=== PATIENT | male | born 2000 | race Caucasian/White ===

== ENCOUNTER 2022-05-19 16:47 | Emergency (ER) | payer OTHER, SELFPAY ==
[2022-05-19 16:56] VITALS: BP 136/72; PULSE 72; RESP 18; TEMP 36.9; O2SAT 99; BMI 22.2
[2022-05-19 19:21] VITALS: BP 126/85; PULSE 60; RESP 16; O2SAT 100
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
--- OUTSIDE RECORDS SUMMARY | 2022-05-19 19:42 | XMS_ITS | Encounter Summary ---
:2000 Author Organization [facility] Address [address] [place] [address] Care Team Providers Name Role Phone Harjeet Holly M.D. Primary Care Provider Reason for Referral Outpatient (Routine) - Closed Specialty Diagnoses / Procedures Referred By Contact Refer red To Contact Diagnoses Fracture Fifth Metacarpal Neck Displaced Closed Initial Right Juan Luis Loo APRN, [facility] Region Procedures FL Fluoro Less Than 1 Hour M.S.N., R.N. [address] [place] [phone] Referral ID Status Reason Start Date Expiration Date Visits Requ ested Visits Authorized [id number] Closed 07/01/2021 07/01/2022 1 1 H MOVING TECHNICIAN Reason for Visit Outpatient (Routine) - Closed Specialty Diagnoses / Procedures Referred By Contact Refer red To Contact Diagnoses Fracture Fifth Metacarpal Neck Displaced Closed Initial Right Juan Luis Loo APRN, [facility] Region Procedures FL Fluoro Less Than 1 Hour M.S.N., R.N. [address] [place] [phone] Referral ID Status Reason Start Date Expiration Date Visits Requ ested Visits Authorized [id number] Closed 07/01/2021 07/01/2022 1 1 Encounter Details Date Type Department Care Team Description 07/01/2021 Hospital Encounter Department of Juan Luis Loo Fract ure [facility] OLIVE, M.S.N., [facility], in R.N. Displaced Closed [place], [place] [address] [facility] Initial Right [address] [place], [place] [phone] Social History Tobacco Use Types Packs/Day Years Used Date Smoking Tobacco: Never Smokeless Tobacco: Never Sex Assigned at Date Recorded Not on file documented as of this encounter Plan of Treatment Not on filedocumented as of this encounter Procedures Procedure Name Priority Date/Time Associated Comments Diagnosis FL FLUORO LESS RAD - Routine 07/01/2021 3:40 Fracture Fifth Results for this THAN 1 HOUR (most inpatients PM EARTH MOVING TECHNICIAN Metacarpal Neck procedur e are in and all Displaced Closed the results outpatients) Initial Right section. documented in this encounter Results FL Fluoro Less Than 1 Hour (07/01/2021 3:40 PM EARTH MOVING TECHNICIAN) Specimen (Source) Anatomical Location Collection Method / Collectio n Time Received Time / Laterality Volume Narrative [id number] - 07/01/2021 3:41 PM EARTH MOVING TECHNICIAN This exam does not require a radiologist review or interpretation. Please refer to the patient's medical record on this date for clinical details. Eda Darby APRN., R.N. IMG FLUOROSCOPY PROCE MARLENA Performing Organization Address City/State/ZIP Code Phon e Number [id number] documented in this encounter Visit Diagnoses Diagnosis Fracture Fifth Metacarpal Neck Displaced Closed Initial Right documented in this encounter Care Teams Websphere Commerce Developer Relationship Specialty Start Date End Date Harjeet Holly M.D. PCP - General 01/29/[address] [place] [phone] documented as of this encounter
--- OUTSIDE RECORDS SUMMARY | 2022-05-19 19:42 | XMS_ITS | Encounter Summary ---
:2000 Author Organization [facility] Address [address] [place] [address] Care Team Providers Name Role Phone Harjeet Holly M.D. Primary Care Provider Encounter Details Date Type Department Care Team Description 11/21/2020 Admin Visit Department of Family Medicine, [facility] in [place], [place] [address] [place] [phone] Social History Tobacco Use Types Packs/Day Years Used Date Smoking Tobacco: Never Smokeless Tobacco: Never Sex Assigned at Date Recorded Not on file documented as of this encounter Plan of Treatment Not on filedocumented as of this encounter Visit Diagnoses Not on filedocumented in this encounter Additional Health Concerns Infection Onset Date Last Indicated Resolved Time COVID19 Pending 11/20/2020 11/21/2020 11/21/2020 9:39 PM CDT documented as of this encounter Care Teams Ductfixing Plumber Relationship Specialty Start Date End Date Harjeet Holly M.D. PCP - General 01/29/[address] [place] [phone] documented as of this encounter
--- OUTSIDE RECORDS SUMMARY | 2022-05-19 19:42 | XMS_ITS | Encounter Summary ---
:2000 Author Organization [facility] Address [address] [place] [address] Care Team Providers Name Role Phone Harjeet Holly M.D. Primary Care Provider Reason for Referral Outpatient (Routine) - Authorized Specialty Diagnoses / Procedures Referred By Contact Refer red To Contact Diagnoses Fracture Fifth Metacarpal Neck Displaced Closed Initial Right Juan Luis Loo APRN, [facility] Procedures cast-splint application M.S.N., R.N. [address] [place] [phone] Referral ID Status Reason Start Date Expiration Date Visits V isits Requested Authorized [id number] Authorized 07/01/2021 07/01/2022 1 1 utpatient (Routine) - Closed Specialty Diagnoses / Procedures Referred By Contact Refer red To Contact Orthopedic Surgery Juan Luis Loo APRN, [facility] M.S.N., R.N. [address] [place] [address] Referral ID Status Reason Start Date Expiration Date Visits Requ ested Visits Authorized [id number] Closed 07/01/2021 07/01/2022 1 1 ING MACHINE ASSISTANT Reason for Visit Reason Comments Fracture DOI 11.3.21 right 5th metaca rpal fx, previously seen in [place], splint is breaking Outpatient (Routine) - Closed Specialty Diagnoses / Procedures Referred By Contact Refer red To Contact Orthopedic Surgery Diagnoses Fracture Fifth Metacarpal Neck Displaced Closed Initial Right Cesar Thomas, [facility] [address] [place] [address] MARY Myers [phone] Referral ID Status Reason Start Date Expiration Date Visits Requ ested Visits Authorized [id number] Closed 07/01/2021 07/01/2022 1 1 Encounter Details Date Type Department Care Team Description 07/01/2021 Office Visit Department of Juan Luis Loo APRN, M.SShondaN., R.N. [address] [place] [phone] Fracture Fifth Orthopedic Surgery in [facility] Fonseca [address] [place] [address] Metacarpal Neck [place], [place] Displaced Closed [address] [facility] [place] [phone] Social History Tobacco Use Types Packs/Day Years Used Date Smoking Tobacco: Never Smokeless Tobacco: Never Sex Assigned at Date Recorded Not on file documented as of this encounter Last Filed Vital Signs Vital Sign Reading Time Taken Comments Blood Pressure - - Pulse - - Temperature 36.6 ??C (97.8 ??F) 07/01/2021 2:10 PM MAILING MACHINE ASSISTANT Respiratory Rate - - Oxygen Saturation - - Inhaled Oxygen Concentration - - Weight 69.7 kg (153 lb 10.6 oz) 07/01/2021 2:10 PM MAILING MACHINE ASSISTANT Height 179 cm (5' 10.47) 07/01/2021 2:10 PM MAILING MACHINE ASSISTANT Body Mass Index 21.75 07/01/2021 2:10 PM MAILING MACHINE ASSISTANT Body Mass Index Percentile 42.43 % 07/01/2021 2:10 PM CS T Growth Chart: [facility] (Boys, 2-20 Years) documented in this encounter Procedure Notes Murray Fonseca - 07/01/2021 2:15 PM CSTAssociated Order(s): cast-splint application Post-Procedure Diagnose(s): Fracture Fifth Metacarpal Neck Displaced Closed Initial Right Cast-splint application Date/Time: 07/01/2021 4:01 PM Performed by: Murray Fonseca Authorized by: Juan Luis Loo A.P.R.N., CShondaNSera, M.S.N. PROCEDURE DETAILS Immobilization: Cast Cast type: beckenbaugh. Supplies used: Fiberglass and cotton padding (stockinette, mole skin) PRE PROCEDURE DETAILS Procedure type: application Performed by: Marielena Location: Hand Hand: Right hand POST PROCEDURE DETAILS Procedure completed successfully: yes ING MACHINE ASSISTANT documented in this encounter Consult Notes Juan Luis Loo APRN C.N.PShonda, M.S.N. - 07/01/2021 2:15 PM CST Pain reported: None. REASON FOR CONSULT Ovidio Perera is a 20 y.o. male who presents for evaluation of Fracture of the Right Hand (DOI 11.3.21 right 5th metacarpal fx, previously seen in [place], splint is breaking) and is underthe care of Harjeet Holly M.D.. CONSULTING PROVIDER Cesar Thomas M.D. REASON FOR CONSULT right boxer's fracture. HISTORY OF PRESENT ILLNESS Ovidio Perera is a 20 y.o. male who is right-hand dominant presenting for evaluation of his right boxer's fracture. Patient with no significant past medical history. 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 The presents to walk-in clinic today with concerns that cast is coming off. Date of injury: 06/19/2020. Patient states that he injured his right hand when he punched a wall a couple weeks ago. Patient was seen and evaluated in [place] by an orthopedic. Patient was diagnosed with right boxer's fracture. X-ray revealed a Comminuted, boxer's type fracture of the right 5th metacarpal neck. Patient was placed into ulnar gutter splint. Today, Patient states that he continues to have minimal pain. He is not taking any medicine for pain relief. Pain is overall well controlled. There have been no acute issues in the interval. Patient does present today in his ulnar gutter splint which is soft and break. Patient is tolerating the splint well. No other concerns or complaints for today's visit. Patient currently rates pain as dull, currently rated at 1. They are not currently experiencing numbness, tingling to the effected limb. Previous surgeries or major injuries to affected area are none. Prior treatments include: splint The following portions of the patient's history were reviewed and updated as appropriate: allergies,current medications, family history, medical history, social history, surgical history and problem list. PERTINENT MEDICAL HISTORY #1 Fracture Fifth Metacarpal Neck Displaced Closed Initial Right #2 Pes Planus PAST SURGICAL HISTORY No past surgical history on file. HOME MEDICATIONS The patient is not currently on anticoagulation. SOCIAL HISTORY The patient uses No gait aids needed for ambulation at baseline. Baseline activity level: Independently. The patient currently Dorm. Tobacco history is Social History Tobacco Use Smoking Status Never Smoker Smokeless Tobacco Never Used . REVIEW OF SYSTEMS Constitutional: negative for chills, fever, nausea, vomiting. OBJECTIVE VITAL SIGNS Temp 36.6 ??C (Temporal) Ht 179 cm Wt 69.7 kg BMI 21.75 kg/m?? BMI Body mass index is 21.75 kg/m??. PHYSICAL EXAM Orthopedic Physical Examination RIGHT UPPER EXTREMITY: General Appearance: Patient appears alert, active, comfortable, and in no acute distress. The patient is alert and oriented to person, place, and time and able follow commands. Skin/Vascular: The right upper extremity does appear well perfused. Radial and ulnar pulses are 2+ and capillary refill is <= 2 sec through all fingertips. Skin intact. Resolving ecchymosis. Musculoskeletal: Joint exam demonstrates 5th MCP: deformity on right, range of motion decreased on right, swelling onright and tenderness on right Patient demonstrates unaffected ability to perform active shoulder abduction, elbow flexion/extension, wrist flexion/extension, finger abduction/adduction, finger flexion/extension at MCP joints, and thumb opposition/flexion/extension on the right upper extremity. Right 5th MCP range of motion unable to assess due to discomfort and pain. Neurologic: Intact sensation to light touch through the axillary, musculocutaneous, radial, ulnar, nerve distributions of the affected arm. DIAGNOSTIC RESULTS 01-Jul-2021 14:19:33 Exam: DX HAND RIGHT 3+V IMPRESSION: No change in boxer's fracture of the 5th metacarpal neck with palmar angulation following splinting. EXAM: DX HAND RIGHT 3+ VIEWS COMPARISON: 06/21/2021. FINDINGS: Hand and wrist are viewed through thick plaster splints along the ulnar aspect which partially obscures bony detail. There is no change in the appearance or alignment of the mildly comminuted boxer's fracture of the 5th metacarpal neck with stable palmar angulation of the metacarpal head. No additional fractures identified. Remaining bones are unremarkable. Joint spaces are preserved. 21-Jun-2021 11:31:32 Exam: DX HAND RIGHT 3+V IMPRESSION: No comparison. Comminuted, boxer's type fracture of the right 5th metacarpal neck with approximately 75 degrees of palmar angulation of the distal fragment. There is slight impaction with foreshortening of the 5th metacarpal. The fracture appears to be extra-articular. Soft tissue swelling along the ulnar hand. Ulna negative variance. IMPRESSION/ASSESSMENT/PLAN ASSESSMENT / PLAN #1. Right boxer's fracture. Today, I had the pleasure seeing Ovidio Perera is a pleasant 20 y.o. male who our service was consulted for regarding his above-stated injury. No neurovascular compromise or motor deficits noted. We examined the patient and reviewed the radiology films. According to his most recent x-rays, thepatient does have significant angulation as well as displacement noted. I had a lengthy discussion regarding the hand anatomy pathology, diagnosis, natural history, prognosis, and treatment options. Wediscussed treatment options and alternatives at length with the patient including further conservative management versus operative intervention. At this time patient would like to move forward with conservative management to achieve appropriate alignment. In the clinic, a gentle reduction was attempted under C-arm guidance to confirm continued stability of the fracture. Fluoroscopy images were taken before and after casting and a well molded short arm fiberglass cast was placed in the affected extremity. At this time, we are comfortable proceeding with conservative management. There was discussion of possible displacement of the fracture, as well as, possible adverse outcomes. If one of these complications or another appears, there is always the possibility of surgical management of the fracture in the future. Considering this, we will follow up a clinical visit with x-ray to reevaluate the fracture???s alignment.. I encouraged the patient to: rest, ice, and elevate the affected extremity and he may take [id number] pain medication as needed. Exercise range of motionof the shoulder, elbow and fingers. Patient should remain non-weight bearing to affected extremity. We discussed that Patient should be immobilized 4 to 6 weeks, until there is evidence of radiographichealing and the fracture site is non-tender. At this point, we can remove the cast and place a braceif needed. Restrictions and precautions were discussed. Cast care: We discussed a course of action to take if the skin under the cast itches. Use of a hair-dryer set to the cool setting to blow air inside the cast is acceptable, but nothing should be inserted under the cast. Patient may take Benadryl if itching persists. We discussed that the patient should immediately call our clinic or visit the emergency department in the presence of: severe pain or pain that is getting worse, sores or cuts on the skin under the cast, cast smells bad, feels too tight,or cracks, swelling that causes pain, inability to move patient's fingers. Fingers are blue or cold,a soaking wet cast that is unable to be dried. Patient was provided with our contact information and instructed to give us a call should he has anyadditional questions or concerns. All questions were thoroughly sought and answered to the Patient'ssatisfaction. Patient has no further questions, comments or concerns at this time. Patient understood and has verbally agreed to the above plan. Patient will follow up within one week for repeat radiographs in the cast and clinical re-evaluation. Cast room: Do not remove cast. Ovidio Perera case was discussed with Dr. Robles and she is in agreement with this assessment and plan. #1 Fracture Fifth Metacarpal Neck Displaced Closed Initial Right #2 Pes Planus (This document was generated using voice recognition software and may contain errors including errors in grammar, punctuation and spellings as well as unintended word substitution errors. If there are any questions or concerns, please do contact me for clarification) ADMINISTRATIVE/BILLING 45 minutes were spent with patient and/or family performing chart review, counseling patient/family regarding diagnosis, prognosis, and treatment plan (including risks and benefits). Cesar Thomas M.D. ING MACHINE ASSISTANT documented in this encounter Plan of Treatment Scheduled Referrals Name Type Priority Associated Order Schedule Diagnoses Orthopedic Surgery Outpatient Referral Routine Ex pected: office visit 07/08/2021 (clinic) (Approximate), Expires: 07/01/2024 documented as of this encounter Procedures Procedure Name Priority Date/Time Associated Diagnosis Comme nts SPLINT APPLICATION Routine 07/01/2021 4:01 PM Fracture Fifth R esults for this MAILING MACHINE ASSISTANT Metacarpal Neck procedure ar e in Displaced Closed the results Initial Right section. documented in this encounter Results DX Hand Right 3+ Views (07/09/2021 2:58 PM MAILING MACHINE ASSISTANT) Anatomical Region Laterality Modality Upper Extremity, Hand, Musculoskeletal RST LOS, Right Digital Radiography Musculoskeletal ARZ LOS, Muskuloskeletal FLA LOS Specimen (Source) Anatomical Collection Method Collection Time Re ceived Time Location / / Volume Laterality 07/09/2021 3:15 PM MAILING MACHINE ASSISTANT Impressions 07/09/2021 3:17 PM MAILING MACHINE ASSISTANT Improved alignment of boxer's fracture of the 5th metacarpal shaft distally following closed reduction and casting. Narrative 07/09/2021 3:17 PM MAILING MACHINE ASSISTANT EXAM: DX HAND RIGHT 3+ VIEWS COMPARISON: 07/01/2021. FINDINGS: Hand and wrist are viewed with a fiberglass cast in place. There is improved alignment at site of boxer's fr acture of the 5th metacarpal shaft distally with decrease in pulmonary angu lation of the metacarpal head. No additional fractures identified. Hand an d wrist joint spaces are preserved. Procedure Note Morgan Romero Jr., M.D. - 2020 EXAM: DX HAND RIGHT 3+ VIEWS COMPARISON: 07/01/2021. FINDINGS: Hand and wrist are viewed with a fiberglass cast in place. There is improved alignment at site of boxer's fr acture of the 5th metacarpal shaft distally with decrease in pulmonary angu lation of the metacarpal head. No additional fractures identified. Hand an d wrist joint spaces are preserved. IMPRESSION: Improved alignment of boxer's fracture o f the 5th metacarpal shaft distally following closed reduction and casting. Lin Darby APRN.S.N., R.N. IMG DIAGNOSTIC IMAGIN G PROCEDURES cast-splint application (07/01/2021 4:01 PM MAILING MACHINE ASSISTANT) Narrative MMODAL - 07/01/2021 4:01 PM MAILING MACHINE ASSISTANT Murray Fonseca ? 08/04/2021 12:39 PM Cast-splint application Date/Time: 07/01/2021 4:01 PM Performed by: Murray Fonseca Authorized by: Juan Luis Loo A.P.R.N., C.NSera, M.S.N. PROCEDURE DETAILS Immobilization: ??Cast Cast type: beckenbaugh. Supplies used: ??Fiberglass and cotton p adding (stockinette, mole skin) PRE PROCEDURE DETAILS Procedure type: application ?? Performed by: ??Tech Location: ??Hand Hand: ??Right hand POST PROCEDURE DETAILS Procedure completed successfully: yes ?? Matthieu Darby APRNS.Bhupinder, R.NShonda PROCEDURE/MINOR SURGI ANITHA ORDERABLES Performing Organization Address City/[facility] Phon e Number MMODAL MMODAL NA documented in this encounter Visit Diagnoses Diagnosis Fracture Fifth Metacarpal Neck Displaced Closed Initial Right Fracture Fifth Metacarpal Neck Displaced Closed Initial Right documented in this encounter Care Teams Metal Temperer Relationship Specialty Start Date End Date Harjeet Holly M.D. PCP - General 01/29/[address] [place] [phone] documented as of this encounter
--- OUTSIDE RECORDS SUMMARY | 2022-05-19 19:42 | XMS_ITS | Encounter Summary ---
:2000 Author Organization [facility] Address [address] [place] [address] Care Team Providers Name Role Phone Harjeet Holly M.D. Primary Care Provider Encounter Details Date Type Department Care Team Description 07/01/2021 Hospital Encounter Department of Juan Luis Loo Fract ure Fifth Radiology, Roscoe Matthieu SCHAEFERSNinfa, [facility], in R.N. Displaced Closed [place], [place] [address] [facility] Initial Right [address] [place] [phone] Social History Tobacco Use Types Packs/Day Years Used Date Smoking Tobacco: Never Smokeless Tobacco: Never Sex Assigned at Date Recorded Not on file documented as of this encounter Plan of Treatment Not on filedocumented as of this encounter Procedures Procedure Name Priority Date/Time Associated Comments Diagnosis DX HAND RIGHT 3+ RAD - Routine 07/01/2021 2:23 Fracture Fifth Resul ts for this VIEWS (most inpatients PM BLUE LINE OPERATOR Metacarpal Neck procedur e are in and all Displaced Closed the results outpatients) Initial Right section. documented in this encounter Results DX Hand Right 3+ Views (07/01/2021 2:23 PM BLUE LINE OPERATOR) Anatomical Region Laterality Modality Upper Extremity, Hand, Musculoskeletal RST LOS, Right Digital Radiography Musculoskeletal ARZ LOS, Muskuloskeletal FLA LOS Specimen (Source) Anatomical Collection Method Collection Time Re ceived Time Location / / Volume Laterality 07/01/2021 3:07 PM BLUE LINE OPERATOR Impressions 07/01/2021 3:09 PM BLUE LINE OPERATOR No change in boxer's fracture of the 5th metacarpal neck with palmar angulation following splinting. Narrative 07/01/2021 3:09 PM BLUE LINE OPERATOR EXAM: DX HAND RIGHT 3+ VIEWS COMPARISON: 06/21/2021. FINDINGS: Hand and wrist are viewed thro ugh thick plaster splints along the ulnar aspect which partially obscures truong ny detail. There is no change in the appearance or alignment of the mildly co mminuted boxer's fracture of the 5th metacarpal neck with stable palmar angul ation of the metacarpal head. No additional fractures identified. Remaini ng bones are unremarkable. Joint spaces are preserved. Procedure Note Morgan Romero Jr., M.D. - 2020 EXAM: DX HAND RIGHT 3+ VIEWS COMPARISON: 06/21/2021. FINDINGS: Hand and wrist are viewed thro ugh thick plaster splints along the ulnar aspect which partially obscures truong ny detail. There is no change in the appearance or alignment of the mildly co mminuted boxer's fracture of the 5th metacarpal neck with stable palmar angul ation of the metacarpal head. No additional fractures identified. Remaini ng bones are unremarkable. Joint spaces are preserved. IMPRESSION: No change in boxer's fracture of the 5th metacarpal neck with palmar angulation following splinting. Matthieu Darby APRNS.N., R.N. IMG DIAGNOSTIC IMAGIN G PROCEDURES documented in this encounter Visit Diagnoses Diagnosis Fracture Fifth Metacarpal Neck Displaced Closed Initial Right documented in this encounter Care Teams Actuarial Technician Relationship Specialty Start Date End Date Harjeet Holly M.D. PCP - General 01/29/[address] [place] [phone] documented as of this encounter
--- OUTSIDE RECORDS SUMMARY | 2022-05-19 19:42 | XMS_ITS | Encounter Summary ---
:2000 Author Organization [facility] Address [address] [place] [address] Care Team Providers Name Role Phone Harjeet Holly M.D. Primary Care Provider Reason for Visit Reason Onset Date Comments Testing For Upper Respiratory Virus Symptoms 07/31/2021 Encounter Details Date Type Department Care Team Description 07/31/2021 External Outreach Department of [facility] Ijeoma Goff Contact With And (Suspected) Exposure To COVID-19; Medicine, [place] [facility] Infection Upper Respiratory Clinic, in [address] [address] [place], [place] [phone] (Work) [phone] Social History Tobacco Use Types Packs/Day Years Used Date Smoking Tobacco: Never Smokeless Tobacco: Never Sex Assigned at Date Recorded Not on file documented as of this encounter Progress Notes Ramiro Bellamy RShondaN. - 07/31/2021 11:12 AM CST Encounter created for symptomatic infectious disease screening with possible COVID, Influenza, RSV, and/or Group A Strep testing. L SORTER documented in this encounter Plan of Treatment Not on filedocumented as of this encounter Procedures Procedure Name Priority Date/Time Associated Diagnosis Comme nts INFLUENZA A/B AND Routine 07/31/2021 12:59 PM Infection Upper Results for this RSV, PCR, VARIES SHELL SORTER Respiratory procedure a re in the results section. SARS CORONAVIRUS-2 Routine 07/31/2021 12:59 PM Contact With An d Results for this RNA, V SHELL SORTER (Suspected) Exposure procedu re are in To COVID-19 the results section. documented in this encounter Results Influenza A/B and RSV, PCR, Varies (07/31/2021 12:59 PM SHELL SORTER) [facility] Method Time Signature Influenza A/B Swab, 08/04/2021 DTL and RSV, Nasopharynx 7:58 AM SHELL SORTER Source Influenza A, Undetected Undetected 08/04/2021 DTL PCR 7:58 AM SHELL SORTER Comment: Influenza A RNA absent. Influenza B, PCR Undetected Undetected 08/04/2021 7:58 AM CS T DTL Comment: Influenza B RNA absent. Respiratory Syncytial Virus, PCR Undetected Undetected 7:58 AM SHELL SORTER DTL Comment: RSV RNA absent. ----ADDITIONAL INFORMATION---- This test has been modified from the man ufacturer's instructions. Its performance characteristics were determi amaris by [facility] in a manner consistent with CLIA requirements. This test has not been cleared or approved by the U.S. Food and Drug Administration . Specimen Anatomical Collection Method Collection Time Receive d Time (Source) Location / / Volume Laterality Varies 07/31/2021 12:59 08/01/2021 (Nasopharynx) PM SHELL SORTER 10:17 PM SHELL SORTER Jose Goff P.A.-C. LAB MICROBIOLOGY - GENERAL O RDERABLES Performing Organization Address City/State/ZIP Code Phon e Number [facility] - [address] [place], [place] [address] [facility] [place] [address] [facility] [address] SARS Coronavirus-2 RNA, V Symptomatic (07/31/2021 12:59 PM SHELL SORTER) [facility] Method Time Signature SARS-CoV-2 Swab, 08/01/2021 ECLR Specimen Nasopharynx 1:11 PM SHELL SORTER Source SARS CoV-2 Undetected Undetected 08/01/2021 ECLR RNA, TMA 1:11 PM SHELL SORTER Comment: SARS-CoV-2 RNA absent. This result does not rule out COVID-19 in the patient, as the sensitivity of the test depends o n the timing of the specimen collection and the quality of the specim en. Result should be correlated with patient's history and clinical presentat ion. ----ADDITIONAL INFORMATION---- This molecular amplification test was pe rformed using the Aptima SARS-CoV-2 assay ([employer] on the [employer] Sys tem under emergency use authorization (EUA) by the U.S. Food and Drug Administ ration. Fact sheets for this EUA assay can be fo und at the following links: For Healthcare Providers: https://www.fd a.gov/media/922964/download For Patients: https://www.fda.gov/media/ 635757/download Specimen Anatomical Collection Method Collection Time Receive d Time (Source) Location / / Volume Laterality Varies 07/31/2021 12:59 07/31/2021 9:30 (Nasopharynx) PM SHELL SORTER PM SHELL SORTER Jose Goff P.A.-C. LAB MICROBIOLOGY - GENERAL O RDERABLES Performing Organization Address City/State/ZIP Code Phon e Number [facility]- [address] [place] [phone] [facility] [place] [address] [address] documented in this encounter Visit Diagnoses Diagnosis Contact With And (Suspected) Exposure To COVID-19 Infection Upper Respiratory documented in this encounter Additional Health Concerns Infection Onset Date Last Indicated Resolved Time COVID19 Pending 07/31/2021 07/31/2021 08/01/2021 1:12 PM SHELL SORTER documented as of this encounter Care Teams Hull And Deck Remover Relationship Specialty Start Date End Date Harjeet Holly M.D. PCP - General 01/29/[address] [place] [phone] documented as of this encounter
--- OUTSIDE RECORDS SUMMARY | 2022-05-19 19:42 | XMS_ITS | Encounter Summary ---
:2000 Author Organization [facility] Address [address] [place] [address] Care Team Providers Name Role Phone Harjeet Holly M.D. Primary Care Provider Encounter Details Date Type Department Care Team Description 11/11/2021 Clinical Communication Department of Angel Rizvi, Medicine, [facility], in [address] [phone] Social History Tobacco Use Types Packs/Day Years Used Date Smoking Tobacco: Never Smokeless Tobacco: Never Alcohol Use Standard Drinks/Week Comments Never 0 (1 standard drink = 0.6 oz pure alcoho l) Alcohol Habits Answer Date Recorded How often do you have a drink containing alcohol? Never 08/01/2021 How many drinks containing alcohol do you have on a typical Not asked day when you are drinking? How often do you have six or more drinks on one occasion? No t asked Comment: Not asked Sex Assigned at Date Recorded Not on file documented as of this encounter Miscellaneous Notes Telephone Encounter - Jayna Marino - 11/11/2021 4:09 PM CDT Patient requested paperwork to fill out. 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 Grayson did not sign this at this visit on 08/12/21. He also needs a an actual Medical Certificate First Class signed. Sent to the Forms team on 11/11/21 documented in this encounter Plan of Treatment Not on filedocumented as of this encounter Visit Diagnoses Not on filedocumented in this encounter Care Teams Credit Risk Review Officer Relationship Specialty Start Date End Date Harjeet Holly M.D. PCP - General 01/29/[address] [place] [phone] documented as of this encounter
--- OUTSIDE RECORDS SUMMARY | 2022-05-19 19:42 | XMS_ITS | Encounter Summary ---
:2000 Author Organization [facility] Address [address] [place] [address] Care Team Providers Name Role Phone Harjeet Holly M.D. Primary Care Provider Reason for Referral Outpatient (Routine) - Closed Specialty Diagnoses / Procedures Referred By Contact Refer red To Contact Diagnoses Fracture Fifth Metacarpal Neck Displaced Closed Initial Right Juan Luis Loo, ELECTRONICS ASSEMBLER, [facility] Region Procedures FL Fluoro Less Than 1 Hour M.S.N., R.N. [address] [place] [phone] Referral ID Status Reason Start Date Expiration Date Visits Requ ested Visits Authorized [id number] Closed 07/01/2021 07/01/2022 1 1 RINTENDENT AUTOMOTIVE Encounter Details Date Type Department Care Team Description 07/01/2021 Orders Only Department of Juan Luis Loo, Fracture Fi [facility] in [place], M.S.N., Metac arpal Neck [place], [place] R.N. Displaced Closed [address] [facility] 10[address] [facility] Initial Right ([place] [address] [place], [place] Dx) [phone] Social History Tobacco Use Types Packs/Day Years Used Date Smoking Tobacco: Never Smokeless Tobacco: Never Sex Assigned at Date Recorded Not on file documented as of this encounter Plan of Treatment Not on filedocumented as of this encounter Results FL Fluoro Less Than 1 Hour (07/01/2021 3:40 PM SUPERINTENDENT AUTOMOTIVE) Specimen (Source) Anatomical Location Collection Method / Collectio n Time Received Time / Laterality Volume Narrative 9000 LOS SWMN - 07/01/2021 3:41 PM SUPERINTENDENT AUTOMOTIVE This exam does not require a radiologist review or interpretation. Please refer to the patient's medical record on this date for clinical details. Edmond Darby APRN, R.N. IMG FLUOROSCOPY PROCE MARLENA Performing Organization Address City/State/ZIP Code Phon e Number 9000 LOS SWRI DX Hand Right 3+ Views (07/01/2021 2:23 PM SUPERINTENDENT AUTOMOTIVE) Anatomical Region Laterality Modality Upper Extremity, Hand, Musculoskeletal RST LOS, Right Digital Radiography Musculoskeletal ARZ LOS, Muskuloskeletal FLA LOS Specimen (Source) Anatomical Collection Method Collection Time Re ceived Time Location / / Volume Laterality 07/01/2021 3:07 PM SUPERINTENDENT AUTOMOTIVE Impressions 07/01/2021 3:09 PM SUPERINTENDENT AUTOMOTIVE No change in boxer's fracture of the 5th metacarpal neck with palmar angulation following splinting. Narrative 07/01/2021 3:09 PM SUPERINTENDENT AUTOMOTIVE EXAM: DX HAND RIGHT 3+ VIEWS COMPARISON: [...] metacarpal neck with palmar angulation following splinting. Juan Luis G Eda Loo APRN., R.N. IMG DIAGNOSTIC IMAGIN G PROCEDURES documented in this encounter Visit Diagnoses Diagnosis Fracture Fifth Metacarpal Neck Displaced Closed Initial Right - Primary Fracture Fifth Metacarpal Neck Displaced Closed Initial Right Fracture Fifth Metacarpal Neck Displaced Closed Initial Right documented in this encounter Care Teams Outreach Clinician Relationship Specialty Start Date End Date Harjeet Holly M.D. PCP - General 01/29/[address] [place] [phone] documented as of this encounter
--- OUTSIDE RECORDS SUMMARY | 2022-05-19 19:42 | XMS_ITS | Encounter Summary ---
:2000 Author Organization [facility] Address [address] [place] [address] Care Team Providers Name Role Phone Harjeet Holly M.D. Primary Care Provider Encounter Details Date Type Department Care Team Description 07/31/2021 Clinical Communication Division of [facility] Marcella Reid, Internal Medicine, RNinfa [place], in [phone] [place], [place] (Work) [address] [place] [address] Social History Tobacco Use Types Packs/Day Years Used Date Smoking Tobacco: Never Smokeless Tobacco: Never Sex Assigned at Date Recorded Not on file documented as of this encounter Miscellaneous Notes Telephone Encounter - Pauline oMy - 07/31/2021 11:22 AM MACHINE STUFFER AUTOMATIC scheduled INE STUFFER AUTOMATIC Telephone Encounter - Tuan Reid R.N. - 07/31/2021 10:16 AM CST COVID-19 Nurse Line Screening ASSESSMENT Initial Screening Pathway Select appropriate pathway: : Adult In the last 48 hours, have you had a fever* OR symptoms that are unrelated to a preexisting illness?: Fever,New sore throat,New nausea COVID Symptomatic Screening Do you have any of the following urgent symptoms?: No urgent symptoms noted (Continue Screening) Have you received a COVID-19 vaccine in the last 72 hours? : No vaccine received (Continue Screening) Have you had close contact* with a person who has a LABORATORY CONFIRMED case of COVID-19 in the past 14 days?: No (Continue Screening) Have you tested positive for COVID-19 in the last 45 days?: No. COVID-19 testing is indicated (Continue Screening for Additional Testing) Additional Screening for Influenza, RSV and Strep Select appropriate region: : [place] Do you have any of the following respiratory syntonical virus (RSV) complications? : No complications noted (Continue Screening) Do you have any of the following high risk influenza criteria?: No criteria noted (Continue Screening) Are all of the following Strep criteria met? : Age is between 18-75 years,No, all criteria are not met. Influenza tesing is indicated. (End Screening) (Patient was tested for strep 07/29/21 and was negative) Symptom Onset Date of symptom onset: 07/27/21 Testing Recommendation Endpoint Is testing recommended? : Recommended to test Further Triage Needs Any further triage needs? : No further concerns noted. PLAN Endpoint recommendation: Symptomatic testing indicated, advised to be swabbed for COVID-19 and Influenza, sent to [facility] located at [address] [facility]. An appointment is required fortesting, please call [phone] Thursday-Thursday 7am to 6pm and Thursday & Thursday 9am to 4pm to schedule an appointment. Testing hours are 8am - 4:30pm daily. You can also schedule via your Patient Online Services account., Please avoid using public transportation per CDC recommendation. If you do not have personal transportation please self- quarantine until a personal transportation option is available. Standard Care Points -Get a COVID -19 vaccine as soon as you can if not fully vaccinated. -Wash hands frequently with soap and water, use hand judge if soap and water aren't available. -Wear a mask over your nose and mouth to help protect yourself and others if not fully vaccinated and having no symptoms -Stay 6 feet between yourself and others who don't live with you. -Avoid crowds and poorly ventilated indoor spaces. -Seek emergent care if any of the following occur Trouble breathing Bluish lips or face Persistent pain or pressure in the chest New confusion or inability to rouse. -Notify your regular care provider of any new or worsening symptoms. Symptomatic Carepoints: Stay home and separate yourself from others and stay in a specific sick room if able. Avoid sharing personal or household items. Rest. Hydrate. Take Acetaminophen/Ibuprofen asneeded to control fever and muscles aches. Use over the counter medications as needed for other symptoms. Gargle with 8 ounces of warm salt water several times a day for throat discomfort (1/4 tsp regular salt to 8 ounces or 1 cup warm water). Do not swallow the salt water. Throat lozenges will help keep the throat lubricated. Hard candy, lollipops, and throat lozenges are equally effective. Use a humidifier. If you have received a negative COVID-19 test result and continue to have new or worsening symptoms after 72 hours please call the COVID Nurse Line to assess if you need repeat testing or reach out to your Primary Care Provider for guidance. Education: Patient/caregiver able to teach back Patient agreeable to plan of care: Yes The following references were used: [facility] novel coronavirus (COVID- 19) resources COVID-19 provider advice Nursing judgement Bisque Grader spoke with Ellen Lazo NP about symptoms and no step test was ordered. INE STUFFER AUTOMATIC documented in this encounter Plan of Treatment Not on filedocumented as of this encounter Visit Diagnoses Not on filedocumented in this encounter Additional Health Concerns Infection Onset Date Last Indicated Resolved Time COVID19 Pending 07/31/2021 07/31/2021 08/01/2021 1:12 PM MACHINE STUFFER AUTOMATIC documented as of this encounter Care Teams Avionics System Engineer Relationship Specialty Start Date End Date Harjeet Holly M.D. PCP - General 01/29/[address] [place] [phone] documented as of this encounter
--- OUTSIDE RECORDS SUMMARY | 2022-05-19 19:42 | XMS_ITS | Encounter Summary ---
:2002 Author Organization [facility] Address [address] [place] [address] Care Team Providers Name Role Phone Harjeet Holly M.D. Primary Care Provider Encounter Details Date Type Department Care Team Description 07/09/2021 Hospital Encounter Department of Juan Luis Loo Fract ure Fifth Radiology, [place] Matthieu SCHAEFERSNinfa, [facility], in R.N. Displaced Closed [place], [place] [address] [facility] Initial Right [address] [place] [phone] Social History Tobacco Use Types Packs/Day Years Used Date Smoking Tobacco: Never Smokeless Tobacco: Never Sex Assigned at Date Recorded Not on file documented as of this encounter Plan of Treatment Not on filedocumented as of this encounter Procedures Procedure Name Priority Date/Time Associated Comments Diagnosis DX HAND RIGHT 3+ RAD - Routine 07/09/2021 2:58 Fracture Fifth Resul ts for this VIEWS (most inpatients PM HOMICIDE SQUAD COMMANDING OFFICER Metacarpal Neck procedur e are in and all Displaced Closed the results outpatients) Initial Right section. documented in this encounter Results DX Hand Right 3+ Views (07/09/2021 2:58 PM HOMICIDE SQUAD COMMANDING OFFICER) Anatomical Region Laterality Modality Upper Extremity, Hand, Musculoskeletal RST LOS, Right Digital Radiography Musculoskeletal ARZ LOS, Muskuloskeletal FLA LOS Specimen (Source) Anatomical Collection Method Collection Time Re ceived Time Location / / Volume Laterality 07/09/2021 3:15 PM HOMICIDE SQUAD COMMANDING OFFICER Impressions 07/09/2021 3:17 PM HOMICIDE SQUAD COMMANDING OFFICER Improved alignment of boxer's fracture of the 5th metacarpal shaft distally following closed reduction and casting. Narrative 07/09/2021 3:17 PM HOMICIDE SQUAD COMMANDING OFFICER EXAM: DX HAND RIGHT 3+ VIEWS COMPARISON: [...] shaft distally following closed reduction and casting. Matthieu Darby APRNS.Markel., R.N. IMG DIAGNOSTIC IMAGIN G PROCEDURES documented in this encounter Visit Diagnoses Diagnosis Fracture Fifth Metacarpal Neck Displaced Closed Initial Right documented in this encounter Care Teams Company Tanker Truck Driver Relationship Specialty Start Date End Date Harjeet Holly M.D. PCP - General 01/29/[address] [phone] documented as of this encounter
--- OUTSIDE RECORDS SUMMARY | 2022-05-19 19:42 | XMS_ITS | Encounter Summary ---
:2000 Author Organization [facility] Address [address] [place] [address] Care Team Providers Name Role Phone Harjeet Holly M.D. Primary Care Provider Encounter Details Date Type Department Care Team Description 08/27/2021 Hospital Encounter Department of Jacinta Huff Fifth Radiology, [place] [facility] 10[address] [facility] Displaced [place], [place] Initial Right [address] [facility] [address] [place], [place] [phone] (Work) [phone] Social History Tobacco Use Types Packs/Day Years [...] on file documented as of this encounter Medications at Time of Discharge Medication Sig Dispensed Refills Start Date End Date amoxicillin (AMOXIL) 875 Take 1 tablet (875 mg 20 tablet 0 08/01/2021 mg tablet total) by mouth 2 (two) times a day. documented as of this encounter Plan of Treatment Not on filedocumented as of this encounter Procedures Procedure Name Priority Date/Time Associated Comments Diagnosis DX HAND RIGHT 3+ RAD - Routine 08/27/2021 2:31 Fracture Fifth Resul ts for this VIEWS (most inpatients PM CHIEF MEDICAL TECHNOLOGIST Metacarpal Neck procedur e are in and all Displaced Closed the results outpatients) Initial Right section. documented in this encounter Results DX Hand Right 3+ Views (08/27/2021 2:31 PM CHIEF MEDICAL TECHNOLOGIST) Anatomical Region Laterality Modality Upper Extremity, Hand, Musculoskeletal RST LOS, Right Digital Radiography Musculoskeletal ARZ LOS, Muskuloskeletal FLA LOS Specimen (Source) Anatomical Collection Method Collection Time Re ceived Time Location / / Volume Laterality 08/27/2021 4:40 PM CHIEF MEDICAL TECHNOLOGIST Impressions 08/27/2021 4:41 PM CHIEF MEDICAL TECHNOLOGIST Near-complete interval healing of the right hand distal fifth metacarpal fracture Narrative 08/27/2021 4:41 PM CHIEF MEDICAL TECHNOLOGIST EXAM: DX HAND RIGHT 3+ VIEWS COMPARISON: 07/19/2021 FINDINGS: Compared to the previous [facility], there has been near complete radiographic healing of the right hand d istal fifth metacarpal fracture, with mild palmar angulation of the distal fra cture fragment. Bone mineralization is within normal limits. The visualized anai nt spaces are preserved. Procedure Note Meliton Barbosa M.D. - 08/27/2021Form atting of this note might be different from the original. EXAM: DX HAND RIGHT 3+ VIEWS COMPARISON: 07/19/2021 FINDINGS: Compared to the previous [facility], there has been near complete radiographic healing of the right hand d istal fifth metacarpal fracture, with mild palmar angulation of the distal fra cture fragment. Bone mineralization is within normal limits. The visualized anai nt spaces are preserved. IMPRESSION: Near-complete interval healing of the ri ght hand distal fifth metacarpal fracture Jacinta Huff P.A.-C., M.S. IMG DIAGNOSTIC IMAGING PROCEDURES documented in this encounter Visit Diagnoses Diagnosis Fracture Fifth Metacarpal Neck Displaced Closed Initial Right documented in this encounter Care Teams Mechanical Service Specialist Relationship Specialty Start Date End Date Harjeet Holly M.D. PCP - General 01/29/[address] [place] [phone] documented as of this encounter
--- OUTSIDE RECORDS SUMMARY | 2022-05-19 19:42 | XMS_ITS | Encounter Summary ---
:2002 Author Organization [facility] Address [address] [place] [address] Care Team Providers Name Role Phone Harjeet Holly M.D. Primary Care Provider Reason for Referral Outpatient (Routine) - Authorized Specialty Diagnoses / Procedures Referred By Contact Refer red To Contact Diagnoses Fracture Fifth Metacarpal Neck Displaced Closed Initial Right Zack Li APRN, [facility] Region Procedures cast-splint application C.N.P., D.N.P., M.S.N. [address] [place] [phone] Referral ID Status Reason Start Date Expiration Date Visits V isits Requested Authorized [id number] Authorized 07/19/2021 07/19/2022 1 1 ICAL QUALITY RN Reason for Visit Outpatient (Routine) - Closed Specialty Diagnoses / Procedures Referred By Contact Refer red To Contact Diagnoses Fracture Fifth Metacarpal Neck Displaced Closed Initial Right Zack Li APRN, [facility] Region Procedures ORS Cast Room Visit C.N.P., D.N.P., M.S.N. [address] [place] [phone] Referral ID Status Reason Start Date Expiration Date Visits Requ ested Visits Authorized [id number] Closed 07/09/2021 07/09/2022 1 1 Encounter Details Date Type Department Care Team Description 07/19/2021 Procedure visit Department of Zack Li APRN, [place].N.P., D.N.P., M.S.N. [address] [place] [address] Fracture Fifth Orthopedic Surgery Murray Fonseca [address] [place] [address] Metacarpal Neck in [place], Displaced Close d [place] Initial Right [address] [place] [address] Social History Tobacco Use Types Packs/Day Years Used Date Smoking Tobacco: Never Smokeless Tobacco: Never Sex Assigned at Date Recorded Not on file documented as of this encounter Procedure Notes Murray Fonseca - 07/19/2021 2:00 PM CSTAssociated Order(s): cast-splint application Post-Procedure Diagnose(s): Fracture Fifth Metacarpal Neck Displaced Closed Initial Right Cast-splint application Date/Time: 07/19/2021 2:46 PM Performed by: Murray Fonseca Authorized by: Zack Li APRN, C.N.P., D.N.P., M.S.N. PRE PROCEDURE DETAILS Procedure type: removal Procedure type comment: Cast Performed by: Tech Location: Hand Hand: Right hand POST PROCEDURE DETAILS Procedure completed successfully: yes ICAL QUALITY RN documented in this encounter Plan of Treatment Not on filedocumented as of this encounter Procedures Procedure Name Priority Date/Time Associated Diagnosis Comme nts SPLINT APPLICATION Routine 07/19/2021 2:46 PM Fracture Fifth R esults for this CLINICAL QUALITY RN Metacarpal Neck procedure ar e in Displaced Closed the results Initial Right section. documented in this encounter Results cast-splint application (07/19/2021 2:46 PM CLINICAL QUALITY RN) Narrative MMODAL - 07/19/2021 2:46 PM CLINICAL QUALITY RN Murray Fonseca ? 07/19/2021 ??2:47 PM Cast-splint application Date/Time: 07/19/2021 2:46 PM Performed by: Murray Fonseca Authorized by: Zack Li APRN, C .N.P., Breanna.Leola., M.S.N. PRE PROCEDURE DETAILS Procedure type: removal ?? Procedure type comment: ??Cast Performed by: ??Tech Location: ??Hand Hand: ??Right hand POST PROCEDURE DETAILS Procedure completed successfully: yes ?? Zack Li APRN, C.N.P., Hermelinda., M.S.N. PROCEDURE /MINOR SURGICAL ORDERABLES Performing Organization Address City/[facility] Phon e Number MMODAL MMODAL NA documented in this encounter Visit Diagnoses Diagnosis Fracture Fifth Metacarpal Neck Displaced Closed Initial Right documented in this encounter Care Teams Rectangular Tank Cooper Relationship Specialty Start Date End Date Harjeet Holly M.D. PCP - General 01/29/[address] [place] [phone] documented as of this encounter
--- OUTSIDE RECORDS SUMMARY | 2022-05-19 19:42 | XMS_ITS | Encounter Summary ---
:2002 Author Organization [facility] Address [address] [place] [address] Care Team Providers Name Role Phone Harjeet Holly M.D. Primary Care Provider Encounter Details Date Type Department Care Team Description 06/21/2021 Hospital Encounter Department of Harjeet Holly Pai n Hand Right Radiology in [place] [address] [phone] Social History Tobacco Use Types Packs/Day Years Used Date Smoking Tobacco: Never Smokeless Tobacco: Never Sex Assigned at Date Recorded Not on file documented as of this encounter Plan of Treatment Not on filedocumented as of this encounter Procedures Procedure Name Priority Date/Time Associated Comments Diagnosis DX HAND RIGHT 3+ RAD - Routine 06/21/2021 11:33 Pain Hand Right Res ults for this VIEWS (most inpatients AM CDT procedure a re in and all the results outpatients) section. documented in this encounter Results DX Hand Right 3+ Views (06/21/2021 11:33 AM CDT) Anatomical Region Laterality Modality Upper Extremity, Hand, Musculoskeletal RST LOS, Right Digital Radiography Musculoskeletal ARZ LOS, Muskuloskeletal FLA LOS Specimen (Source) Anatomical Collection Method Collection Time Re ceived Time Location / / Volume Laterality 06/21/2021 12:54 PM CDT Impressions 06/21/2021 12:55 PM CDT No comparison. Comminuted, boxer's type fracture of the right 5th metacarpal neck with approximately 75 de grees of palmar angulation of the distal fragment. There is slight impaction with foreshortening of the 5th metacarpal. The fracture appears to be extra-articul ar. Soft tissue swelling along the ulnar hand. Ulna negative variance. Narrative 06/21/2021 12:55 PM CDT EXAM: ??DX HAND RIGHT 3+ VIEWS Procedure Note Palmira Figueredo M.D. - 06/21/2021For matting of this note might be different from the original. EXAM: DX HAND RIGHT 3+ VIEWS IMPRESSION: No comparison. Comminuted, boxer's type fracture of the right 5th metacarpal neck with approximately 75 de grees of palmar angulation of the distal fragment. There is slight impaction with foreshortening of the 5th metacarpal. The fracture appears to be extra-articul ar. Soft tissue swelling along the ulnar hand. Ulna negative variance. Harjeet Holly M.D. IMG DIAGNOSTIC IMAGING DICK HICKMAN documented in this encounter Visit Diagnoses Diagnosis Pain Hand Right documented in this encounter Care Teams Funeral Limousine Driver Relationship Specialty Start Date End Date Harjeet Holly M.D. PCP - General 01/29/[address] [place] [phone] documented as of this encounter
--- OUTSIDE RECORDS SUMMARY | 2022-05-19 19:42 | XMS_ITS | Encounter Summary ---
:2000 Author Organization [facility] Address [address] [place] [address] Care Team Providers Name Role Phone Harjeet Holly M.D. Primary Care Provider Reason for Referral Outpatient (Routine) - Closed Specialty Diagnoses / Procedures Referred By Contact Refer red To Contact Diagnoses Fracture Fifth Metacarpal Neck Displaced Closed Initial Right Zack Li APRN, [facility] Procedures ORS Cast Room Visit C.N.P., D.N.P., M.S.N. [address] [place] [phone] Referral ID Status Reason Start Date Expiration Date Visits Requ ested Visits Authorized [id number] Closed 07/09/2021 07/09/2022 1 1 utpatient (Routine) - Closed Specialty Diagnoses / Procedures Referred By Contact Refer red To Contact Orthopedic Surgery Zack Li APRN, [facility] C.N.P., D.N.P., M.S. N. [address] [place] [address] Referral ID Status Reason Start Date Expiration Date Visits Requ ested Visits Authorized [id number] Closed 07/09/2021 07/09/2022 1 1 Scheduling Instructions gomez or rachana MANAGEMENT SOCIAL WORKER Reason for Visit Reason Comments Follow-up F/u right 5th metacarpal fx xrays complete Outpatient (Routine) - Closed Specialty Diagnoses / Procedures Referred By Contact Refer red To Contact Orthopedic Surgery Juan Luis Loo, [place], [facility] M.S.N., R.N. [address] [place] [address] Referral ID Status Reason Start Date Expiration Date Visits Requ ested Visits Authorized [id number] Closed 07/01/2021 07/01/2022 1 1 Encounter Details Date Type Department Care Team Description 07/09/2021 Office Visit Department of Zack Li, Fracture Fifth Orthopedic Surgery in [place], CShondaNSera, [facility] [place] Valentino.N.P., M.S.N. Displaced Closed [address] [facility] 1025 [facility] Initial Right ([place], [place]x) [phone] Social History Tobacco Use Types Packs/Day Years Used Date Smoking Tobacco: Never Smokeless Tobacco: Never Sex Assigned at Date Recorded Not on file documented as of this encounter Last Filed Vital Signs Vital Sign Reading Time Taken Comments Blood Pressure - - Pulse - - Temperature 36.5 ??C (97.7 ??F) 07/09/2021 3:01 PM CASE MANAGEMENT SOCIAL WORKER Respiratory Rate - - Oxygen Saturation - - Inhaled Oxygen Concentration - - Weight 69.9 kg (154 lb 1.6 oz) 07/09/2021 3:01 PM CASE MANAGEMENT SOCIAL WORKER Height - - Body Mass Index 21.82 07/01/2021 2:10 PM CASE MANAGEMENT SOCIAL WORKER Body Mass Index Percentile 43.24 % 07/09/2021 3:01 PM CS T Growth Chart: CDC (Boys, 2-20 Years) documented in this encounter Progress Notes Zack Li, [place], C.N.P., D.N.P., M.S.N. - 07/09/2021 3:00 PM CASE MANAGEMENT SOCIAL WORKER CHIEF COMPLAINT Ovidioshay Juarez a 20 y.o. male who presents today for evaluation of Chief Complaint Patient presents with ??? Right Hand - Follow-up F/u right 5th metacarpal fx xrays complete and is under the care of Primary Care Provider: Harjeet Hloly M.D.. JANUSZ Perera is a 20 y.o.male who presents today for follow-up evaluation of right 5th metacarpal fracture sustained on 06/19/2021 after punching a wall. Patient was last seen by my colleague Juan Luis Loo on 07/01/2021. Closed reduction was performed of the time and patient was placed in a fiberglass cast. Since that last visit patient is remain nonweightbearing to the affected extremity. Patient states they are not currently experiencing numbness, tingling, weakness to the effected limb. The following portions of the patient's history were reviewed and updated as appropriate: allergies,current medications, family history, medical history, social history, surgical history and problem list. Social History Tobacco Use Smoking Status Never Smoker Smokeless Tobacco Never Used . OBJECTIVE VITAL SIGNS Vitals: 07/09/21 1501 Temp: 36.5 ??C TempSrc: Temporal PHYSICAL EXAM General Appearance: Patient appears awake, alert, oriented, and in no acute distress. Skin/Vascular: Upper Extremity: The right upper extremity does appear well perfused. capillary refill is <= 2 sec through all fingertips. Fiberglass cast is clean, dry, intact. Musculoskeletal: Cast present. Patient demonstrates unaffected ability to perform flexion, extension through IP joints of digits 1 through 5. MCP range of motion was not tested due to cast. Neurologic: Upper Extremity: Intact sensation to light touch through the axillary, median, radial, ulnar, nerve distributions of the affected arm. DIAGNOSTIC RESULTS DX Hand Right 3+ Views Result Date: 07/09/2021 Narrative: EXAM: DX HAND RIGHT 3+ VIEWS COMPARISON: 07/01/2021. FINDINGS: Hand and wrist are viewed with a fiberglass cast in place. There is improved alignment at site of boxer's fracture of the 5th metacarpal shaft distally with decrease in pulmonary angulation of the metacarpal head. No additional fractures identified. Hand and wrist joint spaces are preserved. Impression: Improved alignment of boxer's fracture of the 5th metacarpal shaft distally following closed reduction and casting. DX Hand Right 3+ Views Result Date: 07/01/2021 Narrative: EXAM: DX HAND RIGHT 3+ VIEWS COMPARISON: 06/21/2021. FINDINGS: Hand and wrist are viewed through thick plaster splints along the ulnar aspect which partially obscures bony detail. There is nochange in the appearance or alignment of the mildly comminuted boxer's fracture of the 5th metacarpal neck with stable palmar angulation of the metacarpal head. No additional fractures identified. Remaining bones are unremarkable. Joint spaces are preserved. Impression: No change in boxer's fracture of the 5th metacarpal neck with palmar angulation following splinting. DX Hand Right 3+ Views Result Date: 06/21/2021 Narrative: EXAM: DX HAND RIGHT 3+ VIEWS Impression: No comparison. Comminuted, boxer's type fracture of the right 5th metacarpal neck with approximately 75 degrees of palmar angulation of the distal fragment. There is slight impaction with foreshortening of the 5th metacarpal. The fracture appears to be extra-articular. Soft tissue swellingalong the ulnar hand. Ulna negative variance. FL Fluoro Less Than 1 Hour Result Date: 07/01/2021 Narrative: This exam does not require a radiologist review or interpretation. Please refer to the patient's medical record on this date for clinical details. ASSESSMENT / PLAN #1 Fracture Fifth Metacarpal Neck Displaced Closed Initial Right - DX Hand Right 3+ Views; Future; Expected date: Before next visit - ORS Cast Room Visit; Future; Expected date: Before next visit Other orders - Orthopedic Surgery office visit (clinic) - Orthopedic Surgery office visit (clinic); Future; Expected date: 07/16/2021 It was a pleasure to see and evaluate Ovidio Perera. He is an 20-year-old male continuing torecover from the above-stated injury sustained on 06/19/2021 after punching a wall. Radiographs obtained today reveal improved alignment of his 5th metacarpal fracture after close reduction and casting. He is neurovascular intact. Patient is a little less than 3 weeks post injury at this point. He will remain in his cast for 1 more week. Patient will follow-up in 1 week with repeat radiographs out of the cast. Pending callus formation, patient may be transitioned to skyler tape versus bracing, versus no further immobilization at that visit. All patient questions were thoroughly sought and answered. He is in agreement with the above-stated plan. MANAGEMENT SOCIAL WORKER documented in this encounter Plan of Treatment Scheduled Orders Name Type Priority Associated Diagnoses Order S chedule ORS Cast Room Procedures Routine Fracture Fifth 1 Occurrence s starting Visit Metacarpal Neck 07/09/2021 u ntil Displaced Closed 10/09/2022 Initial Right Scheduled Referrals Name Type Priority Associated Order Schedule Diagnoses Orthopedic Surgery Outpatient Referral Routine Ex pected: office visit 07/16/2021 (clinic) (Approximate), Expires: 10/09/2022 documented as of this encounter Results DX Hand Right 3+ Views (07/19/2021 2:20 PM CASE MANAGEMENT SOCIAL WORKER) Anatomical Region Laterality Modality Upper Extremity, Hand, Musculoskeletal RST LOS, Right Digital Radiography Musculoskeletal ARZ LOS, Muskuloskeletal FLA LOS Specimen (Source) Anatomical Collection Method Collection Time Re ceived Time Location / / Volume Laterality 07/19/2021 3:42 PM CASE MANAGEMENT SOCIAL WORKER Impressions 07/19/2021 3:43 PM CASE MANAGEMENT SOCIAL WORKER Some radiographic evidence for interval healing of the distal one third of the right hand fifth metacarpal Narrative 07/19/2021 3:43 PM CASE MANAGEMENT SOCIAL WORKER EXAM: DX HAND RIGHT 3+ VIEWS COMPARISON: 07/09/2021 FINDINGS: Compared to the previous [facility], there has been some radiographic evidence for interval healing of the pal mar angulated fracture involving the distal one third of the right hand fifth metacarpal. Bone mineralization is within normal limits. The visualized anai nt spaces are preserved. Procedure Note Meliton Barbosa M.D. - 07/19/2021Form atting of this note might be different from the original. EXAM: DX HAND RIGHT 3+ VIEWS COMPARISON: 07/09/2021 FINDINGS: Compared to the previous [facility], there has been some radiographic evidence for interval healing of the pal mar angulated fracture involving the distal one third of the right hand fifth metacarpal. Bone mineralization is within normal limits. The visualized anai nt spaces are preserved. IMPRESSION: Some radiographic evidence for interval healing of the distal one third of the right hand fifth metacarpal Salena Rolon APRN.N.PKashif Merchant, M.S.N. IMG DIAGN OSTIC IMAGING PROCEDURES documented in this encounter Visit Diagnoses Diagnosis Fracture Fifth Metacarpal Neck Displaced Closed Initial Right - Primary Fracture Fifth Metacarpal Neck Displaced Closed Initial Right documented in this encounter Care Teams Hotel Night Auditor Relationship Specialty Start Date End Date Harjeet Holly M.D. PCP - General 01/29/[address] [place] [phone] documented as of this encounter
--- OUTSIDE RECORDS SUMMARY | 2022-05-19 19:42 | XMS_ITS | Encounter Summary ---
:2000 Author Organization [facility] Address [address] [place] [address] Care Team Providers Name Role Phone Harjeet Holly M.D. Primary Care Provider Reason for Visit Reason Comments Follow-up Outpatient (Routine) - Closed Specialty Diagnoses / Procedures Referred By Contact Refer red To Contact Orthopedic Surgery Jacinta Huff, [facility] Markel Jung P.AMarcia., M.S. [address] [place] [address] Referral ID Status Reason Start Date Expiration Date Visits Requ ested Visits Authorized [id number] Closed 07/19/2021 07/19/2022 1 1 Encounter Details Date Type Department Care Team Description 08/27/2021 Office Visit Department of Zack Li, Fracture Fifth Orthopedic Surgery in [facility], C.N.P., [facility] ar[address] [place], [place] Kashif, M.S.N. Displaced Closed 1025 [facility] 1025 [facility] Initial Right (Primary [place], [place] Dx) [phone] Social History Tobacco Use Types Packs/Day [...] Pressure - - Pulse - - Temperature 37.2 ??C (99 ??F) 08/27/2021 2:[address] Respiratory Rate - - Oxygen Saturation - - Inhaled Oxygen Concentration - - Weight 69 kg (152 lb 1.9 oz) 08/27/2021 2:[address] Height 176.5 cm (5' 9.49) 08/27/2021 2:[address] Body Mass Index 22.15 08/27/2021 2:[address] Body Mass Index Percentile 46.78 % 08/27/2021 2:59 PM CS T Growth Chart: [facility] (Boys, 2-20 Years) documented in this encounter Progress Notes Zack Li APRN, C.N.P., D.N.P., M.S.N. - 08/27/2021 3:[address] SUBJECTIVE CHIEF COMPLAINT/REASON FOR VISIT Right 5th metacarpal neck fracture HISTORY OF PRESENT ILLNESS Ovidio Perera is a 20 y.o. male who presents for follow up of right 5th metacarpal neck fracture sustained on 06/19/2021. Patient has been utilizing skyler tape since his last visit. Patient has been doing well since his last visit. He denies pain, numbness, or tingling in the rightupper extremity. He is not taking any medications for pain control. Patient has been weight-bearing as tolerated to the affected extremity. He has no further concerns today. The following portions of the patient's history were reviewed and updated as appropriate: allergies,current medications, family history, medical history, social history, surgical history and problem list. OBJECTIVE VITAL SIGNS Vitals: 08/27/21 1459 Temp: 37.2 ??C TempSrc: Temporal PHYSICAL EXAMINATION Orthopedic Physical Examination General Appearance: Patient appears alert, active, comfortable, and in no acute distress. The patient is alert and oriented to person, place, and time and able follow commands. Psych: Normal mood and affect. HEENT: Normocephalic, atraumatic. Skin/Vascular: The right upper extremity does appear well perfused. Radial pulse is 2+ and capillaryrefill is <= 2 sec through all fingers. Musculoskeletal: Right upper extremity: No tenderness to palpation over the 5th metacarpal. Patient demonstrates active ability to form a composite fist. Patient demonstrates active ability to perform finger adduction/abduction, finger flexion/extension at the MCPs, and thumb opposition/flexion/extension. Neurologic: Intact sensation to light touch to the radial, median, ulnar nerve distributions. DIAGNOSTICS DX Hand Right 3+ Views Result Date: [...] swellingalong the ulnar hand. Ulna negative variance. ASSESSMENT / PLAN 1. Right 5th metacarpal neck fracture Ovidio Perera is a 20 y.o. male who presents for follow up of right 5th metacarpal neck fracture sustained on 06/19/2021. Patient is neurovascularly intact on physical exam today. He demonstrates excellent pain-free range of motion. Radiographs obtained today reveal callus formation and healing of his fracture. At this time patient can weight bear as tolerated to the affected extremity. He can resume normal activity. Patient can follow up with me p.r.n.. I am happy to see him back at any time. [address] documented in this encounter Plan of Treatment Not on filedocumented as of this encounter Visit Diagnoses Diagnosis Fracture Fifth Metacarpal Neck Displaced Closed Initial Right - Primary documented in this encounter Care Teams Oceanography Teacher Relationship Specialty Start Date End Date Harjeet Holly M.D. PCP - General 01/29/[address] [place] [phone] documented as of this encounter
--- OUTSIDE RECORDS SUMMARY | 2022-05-19 19:42 | XMS_ITS | Encounter Summary ---
:2000 Author Organization [facility] Address [address] [place] [address] Care Team Providers Name Role Phone Harjeet Holly M.D. Primary Care Provider Encounter Details Date Type Department Care Team Description 07/29/2021 Admin Visit Department of James Gonzales, [facility] [address] [phone] (Wo rk) Social History Tobacco Use Types Packs/Day Years Used Date Smoking Tobacco: Never Smokeless Tobacco: Never Sex Assigned at Date Recorded Not on file documented as of this encounter Plan of Treatment Not on filedocumented as of this encounter Visit Diagnoses Not on filedocumented in this encounter Additional Health Concerns Infection Onset Date Last Indicated Resolved Time COVID19 Pending 07/29/2021 07/29/2021 07/30/2021 3:31 PM RESTAURANT COOK documented as of this encounter Care Teams Crew Mess Attendant Relationship Specialty Start Date End Date Harjeet Holly M.D. PCP - General 01/29/[address] [place] [phone] documented as of this encounter
--- OUTSIDE RECORDS SUMMARY | 2022-05-19 19:42 | XMS_ITS | Encounter Summary ---
:2000 Author Organization [facility] Address [address] [place] [address] Care Team Providers Name Role Phone Harjeet Holly M.D. Primary Care Provider Reason for Visit Reason Comments right hand injury punched a wall on Thu. Belie ves he broke his hand. No prior work up or xrays. Can bend fingers i nwards but right hand fifth finger will not extend 100%. Most pain i s at the base of his knuckle near hand. Has been icing. Tylenol yest erday am. Appointment Request (Routine) - Closed Specialty Diagnoses / Procedures Referred By Contact Refer red To Contact Family Medicine Referral ID Status Reason Start Date Expiration Date Visits Requ ested Visits Authorized [id number] Closed 06/20/2021 06/20/2022 1 1 Encounter Details Date Type Department Care Team Description 06/21/2021 Office Visit Department of Harjeet Johnson Fr acture Fifth Metacarpal Closed Initial Right (Primary Dx); MedicineCheng M.D. Pain Hand Right [facility], in [address] [phone] Social History Tobacco Use Types Packs/Day Years Used Date Smoking Tobacco: Never Smokeless Tobacco: Never Sex Assigned at Date Recorded Not on file documented as of this encounter Last Filed Vital Signs Vital Sign Reading Time Taken Comments Blood Pressure 130/81 06/21/2021 11:07 AM CDT Pulse 56 06/21/2021 11:07 AM CDT Temperature - - Respiratory Rate - - Oxygen Saturation - - Inhaled Oxygen Concentration - - Weight 68 kg (149 lb 14.6 oz) 06/21/2021 11:07 AM CDT Height - - Body Mass Index - - documented in this encounter Progress Notes Harjeet Holly M.D. - 06/21/2021 11:00 AM CDT SUBJECTIVE CHIEF COMPLAINT / REASON FOR VISIT Ovidio is a 20 y.o. male who presents for evaluation of right hand injury (punched a wall on Thu. Believes he broke his hand. No prior work up or xrays. Can bend fingers inwards but right hand fifth finger will not extend 100%. Most pain is at the base of his knuckle near hand. Has been icing. Tylenol yesterday am. ). HISTORY OF PRESENT ILLNESS Ovidio is a pleasant 20 y.o. male who presents to clinic today with concerns of right hand injury.Patient reports he punched a wall on Thursday and felt immediate pain. He has been able to bend hisfingers but the 5th finger will not extend completely. He has most pain at the base of the 5th finger at this time. He has been icing and taking Tylenol. Pain is minimal at this time unless he touches or tries the been the 5th digit. The following portions of the patient's history were reviewed and updated as appropriate: allergies,current medications, family history, medical history, social history, surgical history and problem list. Brief Review of Systems: A brief review of systems was negative except for that mentioned in the history of present of illness. OBJECTIVE PHYSICAL EXAM BP 130/81 Pulse (!) 56 Wt 68 kg There is no height or weight on file to calculate BMI. GENERAL: Patient is in no distress. Capable of full communication without difficulty. Patient is polite and cooperative. EXTREMITIES: Right hand shows significant swelling and discoloration of the 4th and 5th digits and the dorsal aspect of the hand. Pain to palpation over the 5th digit. Deformity noted. Sensation intactdistally. Capillary refill brisk. NEURO: Alert and oriented x3, nonfocal, moving all 4 extremities. CN II-XII grossly intact. PSYCH: Affect is appropriate ASSESSMENT / PLAN #1 Fracture Fifth Metacarpal Closed Initial Right #2 Pain Hand Right X-ray results reviewed with patient showing fracture of the 5th digit on his right hand with displacement. Consulted with Orthopedics who was gracious enough to see the patient immediately. Recommend icing and bracing at this time. Anticipate need for surgery in the near future. Patient was instructed to follow up in primary care if symptoms are worsening or there is no improvement over the next several days. Plan was discussed with patient and is in agreement with plan. All questions were answered, side effects of any/all new medications were discussed. Patient left in no acute distress. Ready to learn. No apparent learning barriers were identified. Learning preferences include listening. Explained diagnosis and treatment plan. Patient/Child/Caregiver expressed understanding of the content. Harjeet Holly M.D. documented in this encounter Plan of Treatment Not on filedocumented as of this encounter Results DX Hand [...] variance. Harjeet Holly M.D. IMG DIAGNOSTIC IMAGING PROCE VICK documented in this encounter Visit Diagnoses Diagnosis Fracture Fifth Metacarpal Closed Initial Right - Primary Pain Hand Right Pain Hand Right documented in this encounter Care Teams Administrative Assistant Office Manager Relationship Specialty Start Date End Date Harjeet Holly M.D. PCP - General 01/29/[address] [place] [phone] documented as of this encounter
--- OUTSIDE RECORDS SUMMARY | 2022-05-19 19:42 | XMS_ITS | Encounter Summary ---
:2000 Author Organization [facility] Address [address] [place] [address] Care Team Providers Name Role Phone Harjeet Holly M.D. Primary Care Provider Encounter Details Date Type Department Care Team Description 07/31/2021 Admin Visit Department of Family James Sorto, [facility], [facility] [address] [phone] (Wo rk) Social History Tobacco Use Types [...] COVID19 Pending 07/31/2021 07/31/2021 08/01/2021 1:12 PM ACCESS SERVICES REPRESENTATIVE documented as of this encounter Care Teams Water Resource Agent Relationship Specialty Start Date End Date Harjeet Holly M.D. PCP - General 01/29/[address] [place] [phone] documented as of this encounter
--- OUTSIDE RECORDS SUMMARY | 2022-05-19 19:42 | XMS_ITS | Encounter Summary ---
:2000 Author Organization [facility] Address [address] [place] [address] Care Team Providers Name Role Phone Harjeet Holly M.D. Primary Care Provider Reason for Visit Reason Comments COVID Nurse Line Encounter Details Date Type Department Care Team Description 11/20/2020 Clinical Communication Division of ELLI Carr Nurse Maria A [facility] Internal Td Dev[facility], [facility], in [place], [place] [address] [place] [address] Social History Tobacco Use Types Packs/Day Years Used Date Smoking Tobacco: Never Smokeless Tobacco: Never Sex Assigned at Date Recorded Not on file documented as of this encounter Miscellaneous Notes Telephone Encounter - Kayce Carr R.N. - 11/20/2020 11:05 AM CDT COVID-19 Nurse Line Screening ASSESSMENT Region Select appropriate region: : [place] Age Pathway Select approprite pathway: : Adult Have you had close contact* with a person who has a LABORATORY CONFIRMED case of COVID-19 in the past 14 days?: Yes- provide quarantine instructions unless exceptions met. (Continue Screening) In the last 48 hours, have you had a fever* OR symptoms that are unrelated to a preexisting illness?: No symptoms noted (Continue Screening) Have you tested positive for COVID-19 in the last 90 days?: No (Continue Screening) Have you been advised to undergo testing or are you requesting testing?: Yes, COVID-19 testing recommended (End Screening) PLAN Endpoint recommendation: Screening negative, COVID- 19 testing indicated per request for exposure, sent to [facility] [place] located at [address] You must schedule an appointment for testing at this location. Please call [phone] during the hours of 7 am to 6 pm (M-F) or 9 am to 4:00pm (Sat and Sun) for an appointment time. Testing hours are 8 am to 12 noon every day. When you arrive atthe testing site: Remain in your vehicle and check-in by calling the number listed on the signage atthe testing site or provided to you at the time you schedule your testing appointment. and Please avoid using public transportation per CDC recommendation. If you do not have personal transportation please self-quarantine until a personal transportation option is available. and Provided instruction toquarantine for 14 days from the last contact exposure to a confirmed COVID-19 case and testing is recommended. The best time to test is 5-7 days after last contact with an infected individual in order to have the best chance of detecting infection. If you are unsure of your last contact, or would liketesting now, we can perform testing now. Even if your test is negative, you should continue to follow official public health quarantine recommendations. Contact your primary care team with any new sympt oms. Care Points: -Wash hands frequently with soap and water for at least 20 seconds -If soap and water are not available, use a hand blending plant operator -Avoid touching your eyes, nose and mouth. -Clean and disinfect high-touch surfaces routinely. -Wear a mask over your nose and mouth. A cloth face cover is not a substitute for social distancing -Continue to keep about 6 feet between yourself and others. -Avoid public areas and public transportation. -Find new ways to connect with family and friends, get support and share feelings. -Seek emergent care if any of the following occur Trouble breathing Bluish lips or face Persistent pain or pressure in the chest New confusion or inability to rouse. -Notify your regular care provider of any new or worsening symptoms. Exposure Carepoints: Continue to quarantine for 14 days from your last known exposure to someone with a laboratory confirmed case of COVID-19 regardless of a negative test result unless otherwise directed. Education: Patient/caregiver able to teach back Patient agreeable to plan of care: Yes The following references were used: [facility] novel coronavirus (COVID- 19) resources documented in this encounter Plan of Treatment Not on filedocumented as of this encounter Visit Diagnoses Not on filedocumented in this encounter Care Teams Kettle Operator Relationship Specialty Start Date End Date Harjeet Holly M.D. PCP - General 01/29/[address] [place] [phone] documented as of this encounter
--- OUTSIDE RECORDS SUMMARY | 2022-05-19 19:42 | XMS_ITS | Encounter Summary ---
:2002 Author Organization [facility] Address [address] [place] [address] Care Team Providers Name Role Phone Harjeet Holly M.D. Primary Care Provider Encounter Details Date Type Department Care Team Description 12/04/2020 Orders Only [facility] [address] [place], [place] [phone] (Wo rk) Social History Tobacco Use Types Packs/Day Years Used Date Smoking Tobacco: Never Smokeless Tobacco: Never Sex Assigned at Date Recorded Not on file documented as of this encounter Plan of Treatment Not on filedocumented as of this encounter Visit Diagnoses Not on filedocumented in this encounter Care Teams Sous Chef Relationship Specialty Start Date End Date Harjeet Holly M.D. PCP - General 01/29/[address] [place] [phone] documented as of this encounter
--- OUTSIDE RECORDS SUMMARY | 2022-05-19 19:42 | XMS_ITS | Encounter Summary ---
:2002 Author Organization [facility] Address [address] [place] [address] Care Team Providers Name Role Phone Harjeet Holly M.D. Primary Care Provider Encounter Details Date Type Department Care Team Description 07/29/2021 Clinical Communication Department of Franck Johnson, Medicine, [facility], in [address] [phone] Social History Tobacco Use Types Packs/Day Years Used Date Smoking Tobacco: Never Smokeless Tobacco: Never Sex Assigned at Date Recorded Not on file documented as of this encounter Plan of Treatment Not on filedocumented as of this encounter Visit Diagnoses Not on filedocumented in this encounter Additional Health Concerns Infection Onset Date Last Indicated Resolved Time COVID19 Pending 07/29/2021 07/29/2021 07/30/2021 3:31 PM GRAIN HANDLER COVID19 Pending 07/31/2021 07/31/2021 08/01/2021 1:12 PM GRAIN HANDLER documented as of this encounter Care Teams Manager Immunology Relationship Specialty Start Date End Date Harjeet Holly M.D. PCP - General 01/29/[address] [place] [phone] documented as of this encounter
--- OUTSIDE RECORDS SUMMARY | 2022-05-19 19:42 | XMS_ITS | Encounter Summary ---
:2002 Author Organization [facility] Address [address] [place] [address] Care Team Providers Name Role Phone Harjeet Holly M.D. Primary Care Provider Reason for Referral Outpatient (Routine) - Authorized Specialty Diagnoses / Procedures Referred By Contact Refer red To Contact Orthopedic Surgery Cesar Thomas M .D. [address] [phone] Referral ID Status Reason Start Date Expiration Date Visits V isits Requested Authorized [id number] Authorized 06/21/2021 06/21/2022 1 1 Reason for Visit Reason Comments Fracture Encounter Details Date Type Department Care Team Description 06/21/2021 Office Visit Department of Cesar Thomas, Fracture [facility] in [place]ac[place]al [place] Jennifer Flores, [address] [place] [address] Displaced Closed [place], [place] Initial Right (Primary [address] [place] [phone] Dx) JENNIFER [place], [place] [phone] (Work) [phone] Social History Tobacco Use Types Packs/Day Years Used Date Smoking Tobacco: Never Smokeless Tobacco: Never Sex Assigned at Date Recorded Not on file documented as of this encounter Consult Notes Cesar Thomas M.D. - 06/21/2021 12:15 PM CDT HISTORY OF PRESENT ILLNESS Ovidio is an 20-year-old man who is here in regard to his hand. Of note is that he sustained an injury to his right hand and was found to have significant swelling and bruising. Eventually x-rays were obtained and he is here today for treatment of this. OBJECTIVE PHYSICAL EXAMINATION Extremities: On examination of his hand, when he flexes and extends his fingers up and down, we are able to see that the rotational alignment is quite normal. He does have swelling around the 5th metacarpal on the ulnar side of his right hand. DIAGNOSTICS X-rays of his right hand obtained today demonstrate a boxer's fracture that is angulated. ASSESSMENT / PLAN #1 Ovidio is an 20-year-old man who has a 5th metacarpal fracture His rotational alignment seems to be reasonable. We will therefore hold off on any surgical intervention for this and place him into an ulnar gutter splint. He tolerated this well. We will plan to see him back in another 3 weeks to likely get his splint off and go to [facility] taping. We will obtain new x-rays at that point in time. ORATE GIVING MANAGER documented in this encounter Plan of Treatment Scheduled Referrals Name Type Priority Associated Order Schedule Diagnoses Orthopedic Surgery Outpatient Referral Routine Ex pected: office visit 07/26/2021 (clinic) (Approximate), Expires: 06/21/2024 documented as of this encounter Visit Diagnoses Diagnosis Fracture Fifth Metacarpal Neck Displaced Closed Initial Right - Primary documented in this encounter Care Teams Supervisor Packing Relationship Specialty Start Date End Date Harjeet Holly M.D. PCP - General 01/29/[id number] [phone] documented as of this encounter
--- OUTSIDE RECORDS SUMMARY | 2022-05-19 19:42 | XMS_ITS | Encounter Summary ---
:2002 Author Organization [facility] Address [address] [place] [address] Care Team Providers Name Role Phone Harjeet Holly M.D. Primary Care Provider Reason for Visit Reason Comments Sore Throat Sore throat, stuffed up nose , fever on thursday. States he has had symptoms for about a week. Covid nega tive from yesterdays test. Encounter Details Date Type Department Care Team Description 08/01/2021 Office Visit Department of [facility] Harjeet Holly Mo nonucleosis Infectious (Primary Dx); Medicine, [facility]; [place] [address] Tonsilli tis Acute [address] [phone] [place], [place] [phone] (Work) [phone] Social History Tobacco Use Types Packs/Day Years [...] Sign Reading Time Taken Comments Blood Pressure 117/76 08/01/2021 1:48 PM BIOCHEMISTRY SPECIALIST Pulse 91 08/01/2021 1:48 PM BIOCHEMISTRY SPECIALIST Temperature 36.5 ??C (97.7 ??F) 08/01/2021 1:48 PM BIOCHEMISTRY SPECIALIST Respiratory Rate 16 08/01/2021 1:48 PM BIOCHEMISTRY SPECIALIST Oxygen Saturation 98% 08/01/2021 1:48 PM BIOCHEMISTRY SPECIALIST Inhaled Oxygen Concentration - - Weight 66.8 kg (147 lb 4.3 oz) 08/01/2021 1:48 PM BIOCHEMISTRY SPECIALIST Height - - Body Mass Index 20.85 07/19/2021 2:27 PM BIOCHEMISTRY SPECIALIST Body Mass Index Percentile 28.85 % 08/01/2021 1:48 PM CS T Growth Chart: [facility] (Boys, 2-20 Years) documented in this encounter Progress Notes Harjeet Holly M.D. - 08/01/2021 2:00 PM CST SUBJECTIVE CHIEF COMPLAINT / REASON FOR VISIT Ovidio is a 20 y.o. male who presents for evaluation of Sore Throat (Sore throat, stuffed up nose,fever on thursday. States he has had symptoms for about a week. Covid negative from yesterdays test. ). HISTORY OF PRESENT ILLNESS Ovidio is a pleasant 20 y.o. male who presents to clinic today with concerns of a one-week historyof sore throat, intermittent fevers, fatigue with sinus congestion. He has been tested for COVID, strep and influenza which have all returned negative. Reports symptoms are persisting is looking for further evaluation. He also reports intermittent lightheadedness. He has been drinking significant amount of water up to 64 oz daily. No chest pain or shortness of breath. The following portions of the patient's history were reviewed and updated as appropriate: allergies,current medications, family history, medical history, social history, surgical history and problem list. Brief Review of Systems: A brief review of systems was negative except for that mentioned in the history of present of illness. OBJECTIVE PHYSICAL EXAM BP 117/76 (BP Location: Left arm, Patient Position: Sitting, Cuff Size: Regular) Pulse 91 Temp 36.5 ??C (Temporal) Resp 16 Wt 66.8 kg SpO2 98% BMI 20.85 kg/m?? Body mass index is 20.85 kg/m??. GENERAL: Patient is in no distress. Capable of full communication without difficulty. Patient is polite and cooperative. HEENT: Normocephalic. EOMI, PERRL, Canals patent, TMs normal. Oropharynx without lesion of mucosa. Tonsillar adenopathy with purulence noted. Cervical chain lymphadenopathy present. HEART: Regular rate and rhythm. No murmurs, gallops or rubs noted. LUNGS: Clear to auscultation bilaterally. No expiratory wheeze. No accessory muscles of respiration noted. ABDOMEN: Nontender to palpation. No hepato-splenomegaly. No mass. Normal bowel sounds in all 4 quadrants. EXTREMITIES: No neurovascular compromise. No cyanosis, clubbing or edema. NEURO: Alert and oriented x3, nonfocal, moving all 4 extremities. CN II-XII grossly intact. PSYCH: Affect is appropriate ASSESSMENT / PLAN #1 Mononucleosis Infectious #2 Lightheadedness #3 Tonsillitis Acute Laboratory evaluation was obtained shortness leukocytosis with shift bleeding to suspicious of mononucleosis. Rapid testing was positive. Patient was contacted with results and discussed conservative management. Recommended rest and fluids. Symptomatic cares for his sore throat. Discussed monitoring for abdominal symptoms secondary to enlargement of the spleen. Discussed typical course of 21 days forsymptom resolution and the fatigue can last upwards of several months. Follow-up as needed. Patient was instructed to follow up in [...] understanding of the content. Harjeet Holly M.D. HEMISTRY SPECIALIST documented in this encounter Plan of Treatment Not on filedocumented as of this encounter Procedures Procedure Name Priority Date/Time Associated Comments Diagnosis MORPHOLOGY Routine 08/01/2021 2:35 PM Results f or this EVALUATION BIOCHEMISTRY SPECIALIST procedure are i n the results section. MANUAL DIFFERENTIAL, Routine 08/01/2021 2:35 PM R esults for this B BIOCHEMISTRY SPECIALIST procedure are i n the results section. INFECTIOUS Routine 08/01/2021 2:35 PM Lightheadedne ss Results for this MONONUCLEOSIS, RAPID BIOCHEMISTRY SPECIALIST Tonsillitis Acute pr ocedure are in TEST, S/B the results section. CBC WITH Routine 08/01/2021 2:35 PM Lightheadedne ss Results for this DIFFERENTIAL, B BIOCHEMISTRY SPECIALIST Tonsillitis Acute procedu re are in the results section. BASIC METABOLIC Routine 08/01/2021 2:35 PM Lightheadedne ss Results for this PANEL, S/P BIOCHEMISTRY SPECIALIST Tonsillitis Acute procedure are in the results section. documented in this encounter Results (ABNORMAL) Manual Differential, B (08/01/2021 2:35 PM BIOCHEMISTRY SPECIALIST) P athologist Signature Lymphocytes % 68 (H) 18 - 42 % 08/01/2021 CNFL 4:09 PM BIOCHEMISTRY SPECIALIST Monocytes 10 2 - 11 % 08/01/2021 CNFL 4:09 PM BIOCHEMISTRY SPECIALIST Specimen Anatomical Collection Method Collection Time Receive d Time (Source) Location / / Volume Laterality Blood 08/01/2021 2:35 PM 1 2:38 BIOCHEMISTRY SPECIALIST PM BIOCHEMISTRY SPECIALIST Harjeet Holly M.D. LAB BLOOD ADD-ON Performing Organization Address [facility] Phon e Number [address] [address] [place] [address] [address] (ABNORMAL) Morphology Evaluation (08/01/2021 2:35 PM BIOCHEMISTRY SPECIALIST) [facility] Method Time Signature RBC Morphology Normal 08/01/2021 CNFL 4:09 PM BIOCHEMISTRY SPECIALIST PLT Morphology See Specific 08/01/2021 CNFL Findings 4:09 PM BIOCHEMISTRY SPECIALIST Large PLT Present (A) Not Seen 08/01/2021 CNFL 4:09 PM BIOCHEMISTRY SPECIALIST Specimen Anatomical Collection Method Collection Time Receive d Time (Source) Location / / Volume Laterality Blood 08/01/2021 2:35 PM 1 2:38 BIOCHEMISTRY SPECIALIST PM BIOCHEMISTRY SPECIALIST Harjeet Holly M.D. LAB BLOOD ADD-ON Performing Organization Address [facility] Phon e Number [address] [address] [place] [address] (ABNORMAL) Infectious Mononucleosis, Rapid Test (08/01/2021 2:35 PM BIOCHEMISTRY SPECIALIST) [facility] gist Method Time Signature Infectious Positive (A) Negative 08/01/2021 CNFL [place] Test, B 3:30 PM BIOCHEMISTRY SPECIALIST Specimen Anatomical Collection Method Collection Time Receive d Time (Source) Location / / Volume Laterality Blood (Blood, 08/01/2021 2:35 PM 08/01/20 21 3:28 Venous) BIOCHEMISTRY SPECIALIST PM BIOCHEMISTRY SPECIALIST Harjeet Holly M.D. LAB MICROBIOLOGY - BLOOD ORD ERABLES Performing Organization Address [facility] Phon e Number [address] [address] [place] [address] [address] (ABNORMAL) CBC with Differential, Blood (08/01/2021 2:35 PM BIOCHEMISTRY SPECIALIST) Component Value Ref Test Analysis Performed At [facility] gist Range Method Time Signature Hemoglobin 14.7 13.2 - 08/01/2021 CNFL 16.6 2:57 PM BIOCHEMISTRY SPECIALIST g/dL Hematocrit 45.8 38.3 - 08/01/2021 CNFL 48.6 % 2:57 PM BIOCHEMISTRY SPECIALIST Erythrocytes 5.07 4.35 - 08/01/2021 CNFL 5.65 2:57 PM BIOCHEMISTRY SPECIALIST x10(12)/ L MCV 90.3 78.2 - 08/01/2021 CNFL 97.9 fL 2:57 PM BIOCHEMISTRY SPECIALIST RBC Distrib 12.6 11.8 - 08/01/2021 CNFL Width 14.5 % 2:57 PM BIOCHEMISTRY SPECIALIST Platelet Count 219 135 - 08/01/2021 CNFL 317 2:57 PM BIOCHEMISTRY SPECIALIST x10(9)/L Leukocytes 13.8 (H) 3.4 - 08/01/2021 CNFL 9.6 2:57 PM BIOCHEMISTRY SPECIALIST x10(9)/L Neutrophils See manual 1.56 - 08/01/2021 CNFL differential 6.45 4:01 PM BIOCHEMISTRY SPECIALIST x10(9)/L Specimen Anatomical Collection Method Collection Time Receive d Time (Source) Location / / Volume Laterality Blood (Blood, 08/01/2021 2:35 PM 08/01/20 21 2:38 Venous) BIOCHEMISTRY SPECIALIST PM BIOCHEMISTRY SPECIALIST Harjeet Holly M.D. LAB BLOOD ADD-ON Performing Organization Address [facility] Phon e Number [address] [address] [facility] [address] Basic Metabolic Panel (08/01/2021 2:35 PM BIOCHEMISTRY SPECIALIST) P athologist Signature Potassium, P 4.6 3.6 - 5.2 08/01/2021 CNFL mmol/L 2:56 PM BIOCHEMISTRY SPECIALIST Sodium, P 135 135 - 145 08/01/2021 CNFL mmol/L 2:56 PM BIOCHEMISTRY SPECIALIST Chloride, P 99 98 - 107 08/01/2021 CNFL mmol/L 2:56 PM BIOCHEMISTRY SPECIALIST Bicarbonate, P 26 22 - 29 08/01/2021 CNFL mmol/L 2:56 PM BIOCHEMISTRY SPECIALIST Anion Gap, P 10 7 - 15 08/01/2021 CNFL 2:56 PM BIOCHEMISTRY SPECIALIST BUN (Blood Urea 14 8 - 24 08/01/2021 CNFL Nitrogen), P mg/dL 2:56 PM BIOCHEMISTRY SPECIALIST Creatinine 1.10 0.74 - 08/01/2021 CNFL 1.35 mg/dL 2:56 PM BIOCHEMISTRY SPECIALIST eGFR-Black/Afric >90 >=60 08/01/2021 CNFL an Panamanian mL/min/BSA 2:56 PM BIOCHEMISTRY SPECIALIST Comment: ----ADDITIONAL INFORMATION---- Estimated GFR calculated using the 2009 CKD_EPI creatinine equation. eGFR Non-Black/ >90 >=60 mL/min/BSA 08/01/2021 2:56 PM BIOCHEMISTRY SPECIALIST CNFL Comment: ----ADDITIONAL INFORMATION---- Estimated GFR calculated using the 2009 CKD_EPI creatinine equation. Calcium, Total, P 9.4 8.6 - 10.0 mg/dL 08/01/2021 2:56 PM BIOCHEMISTRY SPECIALIST CNFL Glucose, P 94 70 - 140 mg/dL 08/01/2021 2:56 PM BIOCHEMISTRY SPECIALIST C NFL Specimen Anatomical Collection Method Collection Time Receive d Time (Source) Location / / Volume Laterality Blood (Blood, 08/01/2021 2:35 PM 08/01/20 2:38 Venous) BIOCHEMISTRY SPECIALIST PM BIOCHEMISTRY SPECIALIST Harjeet Holly M.D. LAB BLOOD ADD-ON Performing Organization Address City/State/ZIP Code Phon e Number [address] [address] [facility] [address] System in [place] [address] documented in this encounter Visit Diagnoses Diagnosis Mononucleosis Infectious - Primary Lightheadedness Tonsillitis Acute documented in this encounter Care Teams Imcu Nurse Relationship Specialty Start Date End Date Harjeet Holly M.D. PCP - General 01/29/[address] [place] [phone] documented as of this encounter
--- OUTSIDE RECORDS SUMMARY | 2022-05-19 19:42 | XMS_ITS | Encounter Summary ---
:2002 Author Organization [facility] Address [address] [place] [address] Care Team Providers Name Role Phone Harjeet Holly M.D. Primary Care Provider Reason for Visit Reason Comments COVRAUL Nurse Line Encounter Details Date Type Department Care Team Description 07/29/2021 Clinical Communication Division of Florinda Baker Nurse Maria A [facility] Internal B, R.N. [facility] [phone] [place], in (Work) [place], [place] [address] [place] [phone] Social History Tobacco Use Types Packs/Day Years Used Date Smoking Tobacco: Never Smokeless Tobacco: Never Sex Assigned at Date Recorded Not on file documented as of this encounter Miscellaneous Notes Telephone Encounter - Cyndie Stern - 07/29/2021 9:39 AM CST Appt scheduled PHONE REPAIRER Telephone Encounter - Florinda Baker, R.N. - 07/29/2021 8:03 AM CST COVID-19 Nurse Line Screening ASSESSMENT Initial Screening Pathway Select appropriate pathway: : Adult In the last 48 hours, have you had a fever* OR symptoms that are unrelated to a preexisting illness?: New sore throat COVID Symptomatic Screening Do you have any [...] RSV and Strep Select appropriate region: : [place] Do you have any of the following respiratory syntonical virus (RSV) complications? : No complications noted (Continue Screening) Do you have any of the following high risk influenza criteria?: No criteria noted (Continue Screening) Are all of the following Strep criteria met? : Age is between 18-75 years,Main symptom or chief complaint of sore throat between 24 hours and 7 days duration,Onset of sore throat not associated with new upper respiratory symptoms such as runny nose, cough, hoarse voice, watery eyes,Yes, all 3 criteriamet. Strep and Influenza testing is indicated (End Screening) Symptom Onset Date of symptom onset: 07/26/21 Testing Recommendation Endpoint Is testing recommended? : Recommended to test Further Triage Needs Any further triage needs? : No further concerns noted. PLAN Endpoint recommendation: Symptomatic testing indicated, advised to be swabbed for COVID-19 and GroupA Strep (age 3 - 75 only), sent to [facility] located at [address]. An appointment is required for testing, please call [phone] Thursday-Thursday 7am to 6pm and Thursday & [...] frequently with soap and water, use hand breast surgeon if soap and water aren't available. -Wear [...] care: Yes The following references were used: [facility] novel coronavirus (COVID- 19) resources Nursing judgement PHONE REPAIRER documented in this encounter Plan of Treatment Not on filedocumented as of this encounter Visit Diagnoses Not on filedocumented in this encounter Additional Health Concerns Infection Onset Date Last Indicated Resolved Time COVID19 Pending 07/29/2021 07/29/2021 07/30/2021 3:31 PM TELEPHONE REPAIRER documented as of this encounter Care Teams Training Instructor Relationship Specialty Start Date End Date Harjeet Holly M.D. PCP - General 01/29/[address] [place] [phone] documented as of this encounter
--- OUTSIDE RECORDS SUMMARY | 2022-05-19 19:42 | XMS_ITS | Encounter Summary ---
:2000 Author Organization [facility] Address [address] [place] [address] Care Team Providers Name Role Phone Harjeet Holly M.D. Primary Care Provider Reason for Visit Reason Onset Date Comments Testing For Upper Respiratory Virus Symptoms 07/29/2021 Encounter Details Date Type Department Care Team Description 07/29/2021 External Outreach Department of [facility] Ijeoma Goff Contact With And (Suspected) Exposure To COVID-19; Medicine, [place] T, P.A.-C. Infection Upper Res[facility], in [address] [address] [place], [place] [phone] (Work) [phone] Social History Tobacco Use Types Packs/Day Years Used Date Smoking Tobacco: Never Smokeless Tobacco: Never Sex Assigned at Date Recorded Not on file documented as of this encounter Progress Notes Noble Gomez - 07/29/2021 8:32 AM CST Encounter created for symptomatic infectious disease screening with possible COVID, Influenza, RSV, and/or Group A Strep testing. NE EQUIPMENT RESEARCH ENGINEER documented in this encounter Plan of Treatment Not on filedocumented as of this encounter Procedures Procedure Name Priority Date/Time Associated Diagnosis Comme nts SARS CORONAVIRUS-2 Routine 07/29/2021 11:29 AM Contact With An d Results for this RNA, V MARINE EQUIPMENT RESEARCH ENGINEER (Suspected) Exposure procedu re are in To COVID-19 the results section. GROUP A STREP PCR, Routine 07/29/2021 11:29 AM Infection Upper Results for this THROAT MARINE EQUIPMENT RESEARCH ENGINEER Respiratory procedure are i n the results section. documented in this encounter Results Streptococcus Group A, Molecular Detection, PCR, Throat (07/29/2021 11:29 AM MARINE EQUIPMENT RESEARCH ENGINEER) P athologist Signature Group A Strep Negative Negative 07/29/2021 [facility] PCR, Throat 2:20 PM MARINE EQUIPMENT RESEARCH ENGINEER Specimen Anatomical Collection Method Collection Time Receive d Time (Source) Location / / Volume Laterality Varies (Throat) 07/29/2021 11:29 07/29/20 21 1:21 AM MARINE EQUIPMENT RESEARCH ENGINEER PM MARINE EQUIPMENT RESEARCH ENGINEER Jose Goff P.A.-C. LAB MICROBIOLOGY - GENERAL O RDERABLES Performing Organization Address City/State/ZIP Code Phon e Number [facility]- [address] [place] [address] [phone] [facility] [place] [address] System in [place] [address] [place] [address] SARS Coronavirus-2 RNA, V Symptomatic (07/29/2021 11:29 AM MARINE EQUIPMENT RESEARCH ENGINEER) [facility] Method Time Signature SARS-CoV-2 Swab, 07/30/2021 ECL[facility] Specimen Nasopharynx 3:30 PM MARINE EQUIPMENT RESEARCH ENGINEER Source SARS CoV-2 Undetected Undetected 07/30/2021 ECLR RNA, TMA 3:30 PM MARINE EQUIPMENT RESEARCH ENGINEER Comment: SARS-CoV-2 RNA absent. This result does not rule out COVID-19 in the patient, as the sensitivity of the test depends o n the timing of the specimen collection and the quality of the specim en. Result should be correlated with patient's history and clinical presentat ion. ----ADDITIONAL INFORMATION---- This molecular amplification test was pe rformed using the Aptima SARS-CoV-2 assay ([employer] on the GenPrimes tem under emergency use authorization (EUA) by the U.S. Food and Drug Administ ration. Fact sheets for this EUA assay can be fo und at the following links: For Healthcare Providers: https://www.fd a.gov/media/329940/download For Patients: https://www.fda.gov/media/ 821790/download Specimen Anatomical Collection Method Collection Time Receive d Time (Source) Location / / Volume Laterality Varies 07/29/2021 11:29 07/29/2021 3:32 (Nasopharynx) AM MARINE EQUIPMENT RESEARCH ENGINEER PM MARINE EQUIPMENT RESEARCH ENGINEER Jose Goff P.A.-C. LAB MICROBIOLOGY - GENERAL O YOVANI Performing Organization Address City/State/ZIP Code Phon e Number [facility]- [address] [place] [address] [phone] [facility] [address] System in [address] documented in this encounter Visit Diagnoses Diagnosis Contact With And (Suspected) Exposure To COVID-19 Infection Upper Respiratory documented in this encounter Additional Health Concerns Infection Onset Date Last Indicated Resolved Time COVID19 Pending 07/29/2021 07/29/2021 07/30/2021 3:31 PM MARINE EQUIPMENT RESEARCH ENGINEER documented as of this encounter Care Teams Willow Machine Tender Relationship Specialty Start Date End Date Harjeet Holly M.D. PCP - General 01/29/[address] [place] [phone] documented as of this encounter
--- OUTSIDE RECORDS SUMMARY | 2022-05-19 19:42 | XMS_ITS | Encounter Summary ---
:2000 Author Organization [facility] Address [address] [place] [address] Care Team Providers Name Role Phone Harjeet Holly M.D. Primary Care Provider Reason for Visit Reason Comments Results Encounter Details Date Type Department Care Team Description 08/02/2021 Clinical Communication Department of Franck Johnson, Results Medicine, [place] [facility], in [address] [phone] Social History Tobacco Use Types Packs/Day Years [...] on filedocumented in this encounter Care Teams Mobile Patrol Officer Relationship Specialty Start Date End Date Harjeet Holly M.D. PCP - General 01/29/[address] [place] [phone] documented as of this encounter
--- OUTSIDE RECORDS SUMMARY | 2022-05-19 19:42 | XMS_ITS | Encounter Summary ---
:2002 Author Organization [facility] Address [address] [place] [address] Care Team Providers Name Role Phone Harjeet Holly M.D. Primary Care Provider Reason for Referral Outpatient (Routine) - Closed Specialty Diagnoses / Procedures Referred By Contact Refer red To Contact Orthopedic Surgery Jacinta Huff [facility] Erich Castillo, M.S. [address] [place] [phone] Referral ID Status Reason Start Date Expiration Date Visits Requ ested Visits Authorized [id number] Closed 07/19/2021 07/19/2022 1 1 C DEPARTMENT CHAIR Reason for Visit Reason Comments Follow-up 5th metacarpal neck displace d closed initial R DOI 06/19/21, imaging completed Outpatient (Routine) - Closed Specialty Diagnoses / Procedures Referred By Contact Refer red To Contact Orthopedic Surgery Zack Li APRN, [facility] Region C.NShondaP., D.N.P., M.S. N. [address] [place] [phone] Referral ID Status Reason Start Date Expiration Date Visits Requ ested Visits Authorized [id number] Closed 07/09/2021 07/09/2022 1 1 Encounter Details Date Type Department Care Team Description 07/19/2021 Office Visit Department of Jacinta Huff [facility] Orthopedic Surgery in Jonathan Silver , M.S. Metacarpal Neck [address] Closed [address] [place], [place] Initial Right ([place] [phone] Dx) [phone] Social History Tobacco Use Types Packs/Day Years Used Date Smoking Tobacco: Never Smokeless Tobacco: Never Sex Assigned at Date Recorded Not on file documented as of this encounter Last Filed Vital Signs Vital Sign Reading Time Taken Comments Blood Pressure - - Pulse - - Temperature 36.7 ??C (98.1 ??F) 07/19/2021 2:27 PM MUSIC DEPARTMENT CHAIR Respiratory Rate - - Oxygen Saturation - - Inhaled Oxygen Concentration - - Weight 69.4 kg (153 lb) 07/19/2021 2:27 PM MUSIC DEPARTMENT CHAIR Height 179 cm (5' 10.47) 07/19/2021 2:27 PM MUSIC DEPARTMENT CHAIR Body Mass Index 21.66 07/19/2021 2:27 PM MUSIC DEPARTMENT CHAIR Body Mass Index Percentile 40.74 % 07/19/2021 2:27 PM CS T Growth Chart: [facility] (Boys, 2-20 Years) documented in this encounter Progress Notes Jacinta Huff P.A.-C., M.S. - 07/19/2021 3:00 PM CST SUBJECTIVE CHIEF COMPLAINT/REASON FOR VISIT Right 5th metacarpal neck fracture HISTORY OF PRESENT ILLNESS Ovidio Perera is a 20 y.o. male who presents for follow up of right 5th metacarpal neck fracture sustained on 06/19/2021. Patient was last seen in clinic by my colleague Harrison Li on 07/09/2021. He was kept in his cast and instructed to be nonweightbearing to his right upper extremity. Patient has been doing well since his last visit. He denies pain, numbness, or tingling in the rightupper extremity. He is not taking any medications for pain control. He has been compliant with nonweightbearing to his right upper extremity. He has no further concerns today. The following portions of the patient's history were reviewed and updated as appropriate: allergies,current medications, family history, medical history, social history, surgical history and problem list. OBJECTIVE VITAL SIGNS Vitals: 07/19/21 1427 Temp: 36.7 ??C PHYSICAL EXAMINATION Orthopedic Physical Examination General Appearance: [...] metacarpal neck fracture sustained on 06/19/2021. Patient was last seen in clinic by my colleague Harrison Li on 07/09/2021. He was kept in his cast and instructed to be nonweightbearing to his right upper extremity. Plan/Follow up instructions: Reviewed today's radiographs with the patient, which demonstrate a stable, healing fracture with no further displacement or changes in alignment compared to his previous radiographs. Patient was transitioned to a wrist brace and skyler tape. He was instructed to wear the wri st brace and skyler tape like a cast for an additional 2 weeks. He was instructed to maintain a nonweightbearing status to the right upper extremity for an additional 2 weeks. In 2 weeks time he may begin weaning from his removable wrist brace and skyler tape. He may also progress to weight-bearing as tolerated to his right upper extremity. Instructed patient to avoid forceful product development actuary, pushing, pulling, and twisting. Encouraged [id number] analgesics as needed for pain control. Patient will follow up in approximately 1 month. He will have repeat radiographs before his visit. I anticipate that he will have no further restrictions at this time and will be able to follow-up as needed. Instructed patient to contact our clinic with any questions or concerns before his next follow-up appointment all patient questions were thoroughly answered and he is in agreement with the above plan. Total time spent providing patient care was 20 minutes. This includes time spent with the patient and time spent on same day pre/post visit EMR documentation, orders, medications, procedures, and communication with other health home child care provider. C DEPARTMENT CHAIR documented in this encounter Plan of Treatment Scheduled Referrals Name Type Priority Associated Order Schedule Diagnoses Orthopedic Surgery Outpatient Referral Routine Ex pected: office visit 08/19/2021 (clinic) (Approximate), Expires: 10/17/2022 documented as of this encounter Results DX Hand Right 3+ Views (08/27/2021 2:31 PM MUSIC DEPARTMENT CHAIR) Anatomical Region Laterality Modality Upper Extremity, Hand, Musculoskeletal RST LOS, Right Digital Radiography Musculoskeletal ARZ LOS, Muskuloskeletal FLA LOS Specimen (Source) Anatomical Collection Method Collection Time Re ceived Time Location / / Volume Laterality 08/27/2021 4:40 PM MUSIC DEPARTMENT CHAIR Impressions 08/27/2021 4:41 PM MUSIC DEPARTMENT CHAIR Near-complete interval healing of the right hand distal fifth metacarpal fracture Narrative 08/27/2021 4:41 PM MUSIC DEPARTMENT CHAIR EXAM: DX HAND RIGHT 3+ VIEWS COMPARISON: 07/19/2021 FINDINGS: Compared to the previous [facility] [place], there has been near complete radiographic healing [...] COMPARISON: 07/19/2021 FINDINGS: Compared to the previous [facility], there has been near complete radiographic healing [...] Right documented in this encounter Care Teams Bulk Folder Relationship Specialty Start Date End Date Harjeet Holly M.D. PCP - General 01/29/[address] [place] [address] [phone] documented as of this encounter
--- OUTSIDE RECORDS SUMMARY | 2022-05-19 19:42 | XMS_ITS | Encounter Summary ---
:2000 Author Organization [facility] Address [address] [place] [address] Care Team Providers Name Role Phone Harjeet Holly M.D. Primary Care Provider Reason for Visit Reason Comments Flight Physical Garment Sewer Hand. [phone] Appointment Request (Routine) - Closed Specialty Diagnoses / Procedures Referred By Contact Refer red To Contact Family Medicine Referral ID Status Reason Start Date Expiration Date Visits Requ ested Visits Authorized [id number] Closed 08/07/2021 08/07/2022 1 1 Encounter Details Date Type Department Care Team Description 08/07/2021 Office Visit Department of [facility] Ramírez Grayson Feder ks Aviation MedicineCheng M.D. Administration Exam [place] [address] (Primary Dx) [address] [address] [place], [place] [phone] (Work) [phone] Social History Tobacco Use Types Packs/Day Years [...] Sign Reading Time Taken Comments Blood Pressure 114/77 08/07/2021 12:29 PM CHANNELER Pulse 91 08/07/2021 12:29 PM CHANNELER Temperature 36.5 ??C (97.7 ??F) 08/07/2021 12:29 PM CHANNELER Respiratory Rate - - Oxygen Saturation 100% 08/07/2021 12:29 PM CHANNELER Inhaled Oxygen Concentration - - Weight 66.7 kg (147 lb 0.8 oz) 08/07/2021 12:29 PM CHANNELER Height 176.5 cm (5' 9.49) 08/07/2021 12:29 PM CHANNELER Body Mass Index 21.41 08/07/2021 12:29 PM CHANNELER Body Mass Index Percentile 36.72 % 08/07/2021 12:[address] Growth Chart: [facility] (Boys, 2-20 Years) documented in this encounter Progress Notes Ramírez Grayson M.D., Ph.D. - 08/07/2021 1:00 PM CST See [facility] site for forms. NELER documented in this encounter Plan of Treatment Not on filedocumented as of this encounter Results Urinalysis, Dipstick (08/07/2021 12:20 PM CHANNELER) athologist Signature Source Urine, 08/07/2021 CNFL Urine, 12:31 PM CHANNELER Voided Clarity Clear Clear 08/07/2021 CNFL 12:37 PM CHANNELER Color Yellow 08/07/2021 CNFL 12:37 PM CHANNELER Comment: ----REFERENCE VALUE---- Colorless Yellow Martha Blood Negative Negative 08/07/2021 12:37 PM CHANNELER CNFL Nitrite Negative Negative 08/07/2021 12:37 PM CHANNELER CNFL Leukocyte Esterase Negative Negative 08/07/2021 12:[address] CNFL Protein Negative mg/dL 08/07/2021 12:37 PM CHANNELER CNFL Comment: ----REFERENCE VALUE---- Negative Trace Glucose Negative Negative mg/dL 08/07/2021 12:37 PM CHANNELER C NFL Ketones, QI(U) Negative Negative mg/dL 08/07/2021 12:37 PM CHANNELER CNFL Bilirubin Negative Negative 08/07/2021 12:37 PM CHANNELER CNFL pH 6.5 5.0 - 8.0 08/07/2021 12:37 PM CHANNELER CNFL Specific [place] 1.020 1.001 - 1.035 08/07/2021 12:37 PM CHANNELER CNFL Urobilinogen 0.2 0.2 - 1.0 mg/dL 08/07/2021 12:[address] CNFL Specimen Anatomical Collection Method Collection Time Receive d Time (Source) Location / / Volume Laterality Urine (Urine, 08/07/2021 12:20 08/07/2021 Voided) PM CHANNELER 12:31 PM CHANNELER Ramírez Grayson M.D. LAB URINE ORDERABLES Performing Organization Address City/State/ZIP Code Phon e Number [facility]- [address] [place] [address] [place] [address] System [address] documented in this encounter Visit Diagnoses Diagnosis [employer] Exam - P rimary documented in this encounter Care Teams Cancer Program Consultant Relationship Specialty Start Date End Date Harjeet Holly M.D. PCP - General 01/29/[address] [place] [phone] documented as of this encounter
--- OUTSIDE RECORDS SUMMARY | 2022-05-19 19:42 | XMS_ITS | Encounter Summary ---
:2002 Author Organization [facility] Address [address] [place] [address] Care Team Providers Name Role Phone Harjeet Holly M.D. Primary Care Provider Encounter Details Date Type Department Care Team Description 08/07/2021 Hospital Encounter Department of Ramírez Grayson Federa l Aviation Laboratory Medicine Muriel Administration Exam in [address] [address] [place], [place] [phone] (Work) [phone] Social History Tobacco Use Types Packs/Day Years [...] Name Priority Date/Time Associated Diagnosis Comme nts URINALYSIS, Routine 08/07/2021 12:20 [employer] Aviation Results for this DIPSTICK PM RECONCILIATION MANAGER Administration Exam procedur e are in the results section. documented in this encounter Results Urinalysis, Dipstick (08/07/2021 12:20 PM RECONCILIATION MANAGER) P athologist Signature Source Urine, 08/07/2021 CNFL Urine, 12:31 PM RECONCILIATION MANAGER Voided Clarity Clear Clear 08/07/2021 CNFL 12:37 PM RECONCILIATION MANAGER Color Yellow 08/07/2021 CNFL 12:37 PM RECONCILIATION MANAGER Comment: ----REFERENCE VALUE---- Colorless Yellow Martha Blood Negative Negative 08/07/2021 12:37 PM RECONCILIATION MANAGER CNFL Nitrite Negative Negative 08/07/2021 12:37 PM RECONCILIATION MANAGER CNFL Leukocyte Esterase Negative Negative 08/07/2021 12:[address] CNFL Protein Negative mg/dL 08/07/2021 12:37 PM RECONCILIATION MANAGER CNFL Comment: ----REFERENCE VALUE---- Negative Trace Glucose Negative Negative mg/dL 08/07/2021 12:37 PM RECONCILIATION MANAGER C NFL Ketones, QI(U) Negative Negative mg/dL 08/07/2021 12:37 PM RECONCILIATION MANAGER CNFL Bilirubin Negative Negative 08/07/2021 12:37 PM RECONCILIATION MANAGER CNFL pH 6.5 5.0 - 8.0 08/07/2021 12:37 PM RECONCILIATION MANAGER CNFL Specific [place] 1.020 1.001 - 1.035 08/07/2021 12:37 PM RECONCILIATION MANAGER CNFL Urobilinogen 0.2 0.2 - 1.0 mg/dL 08/07/2021 12:[address] CNFL Specimen Anatomical Collection Method Collection Time Receive d Time (Source) Location / / Volume Laterality Urine (Urine, 08/07/2021 12:20 08/07/2021 Voided) PM RECONCILIATION MANAGER 12:31 PM RECONCILIATION MANAGER Ramírez Grayson M.D. LAB URINE ORDERABLES Performing Organization Address City/State/ZIP Code Phon e Number [facility]- [address] [place] [phone] [place] [address] System [address] documented in this encounter Visit Diagnoses Diagnosis [employer] Exam documented in this encounter Care Teams Iron Melter Relationship Specialty Start Date End Date Harjeet Holly M.D. PCP - General 01/29/[address] [place] [phone] (work) documented as of this encounter
--- OUTSIDE RECORDS SUMMARY | 2022-05-19 19:42 | XMS_ITS | Clinical Summary ---
:2002 Author Organization [facility] Address [address] [place] [address] Care Team Providers Name Role Phone Harjeet Holly M.D. Primary Care Provider Source Comments Patient records contain information from all sites at [facility]. For routine questions regarding patient records, call [phone] during business hours, M-F 8:00 AM - 5:00 PM Central Time. Record requests for emergency care only can be directed to [phone] at any time.[facility] Allergies No known active allergies Medications Medication Sig Dispensed Refills Start Date End Date Status amoxicillin (AMOXIL) Take 1 tablet 20 tablet 0 08/01/2021 Active 875 mg tablet (875 mg total) by mouth 2 (two) times a day. Additional Information Patient not taking. 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 Immunizations Name Administration Dates Next Due DTaP (Infanrix, Tripedia) 02/28/2008, 02/06/2003 DTaP / Hep B / IPV (Pediarix) 05/01/2003, 2002 DTaP / Hib 02/26/2004 HepB Pediatric/Adolescent 2002 HepB, Unspecified 2002 Hib (HbOC) (discontinued) 05/01/2003, 02/06/2003, 2002 Hib (PRP-T) (ACTHIB, HIBERIX) 05/01/2003, 02/06/2003, 2002 IPV 02/28/2008, 02/06/2003 MCV4 (Menactra) 01/23/2014 MMR 02/28/2008, 11/07/2003 PCV7 (discontinued) 05/01/2003, 02/06/2003, 2002 Td Preservative Free (TENIVAC, DECAVAC) 08/08/2020 Tdap 01/23/2014 TANA 02/28/2008, 11/07/2003 Social History Tobacco Use Types Packs/Day Years [...] Assigned at Date Recorded Not on file Last Filed Vital Signs Vital Sign Reading Time Taken Comments Blood Pressure 114/77 08/07/2021 12:29 PM FINANCE ADMINISTRATOR Pulse 91 08/07/2021 12:29 PM FINANCE ADMINISTRATOR Temperature 37.2 ??C (99 ??F) 08/27/2021 2:59 PM FINANCE ADMINISTRATOR Respiratory Rate 16 08/01/2021 1:48 PM FINANCE ADMINISTRATOR Oxygen Saturation 100% 08/07/2021 12:29 PM FINANCE ADMINISTRATOR Inhaled Oxygen Concentration - - Weight 69 kg (152 lb 1.9 oz) 08/27/2021 2:59 PM FINANCE ADMINISTRATOR Height 176.5 cm (5' 9.49) 08/27/2021 2:59 PM FINANCE ADMINISTRATOR Body Mass Index 22.15 08/27/2021 2:59 PM FINANCE ADMINISTRATOR Body Mass Index Percentile 46.78 % 08/27/2021 2:59 PM CS T Growth Chart: [facility] (Boys, 2-20 Years) Plan of Treatment Health Maintenance Due Date Last Done Comments HIV Screening 2002 Hearing Screening during 2002 Well Child Visit Hepatitis C Screening 2002 1 week Well Child Check-Up 2002 1 month Well Child Check-Up 2002 2 month Well Child Check-Up 2002 4 month Well Child Check-Up 01/23/2003 6 month Well Child / 03/25/2003 Alternative Check-Up COVID-19 Vaccine (#1) 04/25/2003 9 month Well Child Check-Up 06/25/2003 12 month Well Child / 09/25/2003 Alternative Check-Up 15 month Well Child Check-Up 12/24/2003 18 month Well Child 03/25/2004 2 year Well Child Check-Up 09/25/2004 30 month Well Child Check-Up 03/25/2005 3 year Well Child Check-Up 09/25/2005 4 year Well Child Check-Up 09/25/2006 5 year Well Child Check-Up 09/25/2007 6 year Well Child Check-Up 09/25/2008 7 year Well Child / 09/25/2009 Alternative Check-Up 8 year Well Child Check-Up 09/25/2010 9 year Well Child / 09/25/2011 Alternative Check-Up HPV Vaccines (1 - Male 10/24/2011 2-dose series) 10 year Well Child Check-Up 09/25/2012 11 year Well Child Check-Up 09/25/2013 12 year Well Child Check-Up 09/25/2014 13 year Well Child Check-Up 09/25/2015 14 year Well Child Check-Up 09/25/2016 Vision Screening during Well 2016 Child Visit 17 year Well Child Check-Up 09/25/2017 18 year Well Child Check-Up 09/25/2018 19 year Well Child Check-Up 09/25/2019 20 year Well Child Check-Up 09/25/2020 Depression Screening (Annual 08/17/2021 PHQ-2) 19 year Well Child Check-Up 09/25/2021 Well Child Check-Up (WC) 09/25/2021 Influenza Vaccine (#1) 2022 DTaP,Tdap,and Td Vaccines (4 08/08/2030 08/08/2020, 014, - Td or Tdap) 02/28/2008, Additional history exists Hepatitis B Vaccines Completed 05/01/2003, 2002, 2002, Additional history exists Pneumococcal vaccine (0-64 Aged Out 05/01/2003, 3, No longer eligible years) 2002 based on patient 's age to complete this topic MMR Vaccines Completed 02/28/2008, 11/07/2003 Varicella Vaccines Completed 02/28/2008, 11/07/2003 Meningococcal Vaccine Aged Out 01/23/2014 No longer eligible based on patient 's age to complete this topic Insurance Payer Benefit Plan Subscriber ID Effective Phone Address Typ e / Group Dates [employer] [id number] 2020-Pre [phone] Ind emnity FAMILY FAMILY sent [address] [place] [address] [facility] [id number] 2021-Prese [phone] [address] PPO EMPLOYEE PLAN nt [id number] MARY MEJIA [phone] Brian (Home) [facility] [place] [address] Brian Perera Third [employer] Party Other 08/22/1982 [id number] [employer] (Home) [place] [address] Care Teams Bellows Charger Assembler Relationship Specialty Start Date End Date Harjeet Holly M.D. PCP - General 01/29/[address] [place] [phone]
--- OUTSIDE RECORDS SUMMARY | 2022-05-19 19:42 | XMS_ITS | Encounter Summary ---
:2000 Author Organization [facility] Address [address] [place] [address] Care Team Providers Name Role Phone Harjeet Holly M.D. Primary Care Provider Reason for Visit Reason Comments Flight Physical Appointment Request (Routine) - Authorized Specialty Diagnoses / Procedures Referred By Contact Refer red To Contact Family Medicine Referral ID Status Reason Start Date Expiration Date Visits V isits Requested Authorized [id number] Authorized 08/07/2021 08/07/2022 1 1 Encounter Details Date Type Department Care Team Description 08/07/2021 Nurse Only Department of [facility] Rin Grayson M.D. [address] [place] [address] [phone] Flight Physical Medicine, [place] Emilia Martinez, [facility], in [address] [phone] Social History Tobacco Use Types Packs/Day Years [...] as of this encounter Visit Diagnoses Diagnosis [employer] Exam - P rimary documented in this encounter Care Teams Aviation Safety Officer Relationship Specialty Start Date End Date Harjeet Holly M.D. PCP - General 6/15/[id number] [phone] documented as of this encounter
--- OUTSIDE RECORDS SUMMARY | 2022-05-19 19:42 | XMS_ITS | Encounter Summary ---
:2000 Author Organization [facility] Address [address] [place] [address] Care Team Providers Name Role Phone Harjeet Holly M.D. 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 Encounter Details Date Type Department Care Team Description 07/01/2021 Orders Only Department of Cesar Thomas, Fracture Fifth Orthopedic Surgery in .D Metacarpal Neck [place], [place] [address] Displaced Closed [address] [place], [place] Initial Right ([place] [address] Dx) [phone] Social History Tobacco Use Types Packs/Day Years Used Date Smoking Tobacco: Never Smokeless Tobacco: Never Sex Assigned at Date Recorded Not on file documented as of this encounter Plan of Treatment Scheduled Referrals Name Type Priority Associated Order Schedule Diagnoses Orthopedic Surgery - Outpatient Referral Routine Fracture Fift h Expected: Wrist / hand Metacarpal Neck 07/01/2021 surgical consult Displaced Closed (Approx imate), (clinic) Initial Right Expires: 07/01/2024 documented as of this encounter Visit Diagnoses Diagnosis Fracture Fifth Metacarpal Neck Displaced Closed Initial Right - Primary documented in this encounter Care Teams Client Care Specialist Relationship Specialty Start Date End Date Harjeet Holly M.D. PCP - General 01/29/[address] [place] [phone] documented as of this encounter
--- OUTSIDE RECORDS SUMMARY | 2022-05-19 19:43 | XMS_ITS | Encounter Summary ---
:2000 Author Organization [facility] Address [address] [place] [address] Care Team Providers Name Role Phone Unavailable Primary Care Provider Unavailable Encounter Details Date Type Department Care Team Description 09/26/2016 Hospital Encounter HX [facility] FAMILY ME Lee Jean-Baptiste P.A.-C. 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 He states he also has a little bit of a cough but denies any nasal congestion, his ears are not bothering him he really does not feel too achy. States that he was sent home by the nurse at about 05/1930 this morning with a fever of 101. He took Tylenol or ibuprofen when he got home and now wants to rule out strep throat as is leaving on a plane tomorrow morning for [place]. MEDICATIONS mupirocin 2% topical ointment, 1 elliott, Topical, 3xDay, 1 refills ALLERGIES No Known Medication Allergies PAST MEDICAL HISTORY Chronic None Pes Planus NOS Historical No historical problems PROCEDURES/SURGICAL HISTORY HC CIRCUMCISION CLAMP/DEVICE - 02 (2002), None. SOCIAL HISTORY Date Time: 09/26/2016 16:29 Tobacco: Smoking Status: Never smoker Exposure: Care provider denies smoking in home Alcohol: Use: No Results Found Recreational Drugs: Use: None Type: No Results Found FAMILY HISTORY Mother: Negative: Father: Negative: Sister: Negative: SYSTEMS REVIEW The rest of the review of systems is negative. There are no other HEENT complaints, no chest pain, no shortness of breath. No nausea, vomiting, diarrhea, or constipation. No abdominal pain. VITAL SIGNS T: 37.9 ??C (Core) HR: 76 BP: 120 / 60 WT: 55.1 kg PHYSICAL EXAMINATION GENERAL: Alert, interactive and cooperative. Appears to be well nourished and well hydrated. No acute distress. SKIN: Skin is without rashes or lesions. HEENT: Head: Normocephalic/atraumatic. Ears: Tympanic membranes are clear bilaterally with normal landmarks, normal light reflex. Canals are patent. Eyes: Sclera and conjunctiva are clear. Pupils are equal, round and reactive to light and accommodation. Extra-ocular muscles are intact. Nose: Nares are congested. Maxillary sinuses are tender to palpation. Throat: Oral mucosa is pink and moist. Posterior pharynx is erythematous. Tonsils are slightly enlarged. No exudate. NECK: Supple, without lymphadenopathy. Full range of motion. HEART: Regular rate and rhythm. No murmurs, rubs, or gallops noted. LUNGS: Clear to auscultation bilaterally. No expiratory wheeze, rales, or rhonchi. LAB RESULTS Rapid strep is negative IMPRESSION/REPORT/PLAN Sore Throat (ST) NOS Mom was reassured at this point it is likely viral. Nikki is leaving for [place] in the morning,however his mom is staying home for the weekend in working here at our hospital. I let her know to double check with lab by Thursday night or Thursday to see if they have any it throat culture results back for him. A provider in the emergency department should be able to provide her with a prescription for antibiotics if necessary she flies to [place] to meet the family on Thursday. Ordered: OV Est Pt Level 3 - 43060 - 15 min Rapid Strep Confirmation Electronically Signed By: MERLYN JEAN-BAPTISTE PA-C On: 09/26/2016 04:58 PM Source: [facility] [employer] Document Id: [id number] DED BAND ASSEMBLER documented in this encounter Miscellaneous Notes Miscellaneous - Merlyn Jean-Baptiste - 09/29/2016 9:08 PM CST results Document Contains Addenda Addendum by FRAN MOORE LPN RT on September 30, 2016 09:45:07 BRAIDED BAND ASSEMBLER Detailed message left on [employer] center. From: MERLYN JEAN-BAPTISTE PA-C To: JACKIE Family Medicine Nurse [place]; Sent: 09/29/2016 21:08:35 BRAIDED BAND ASSEMBLER Subject: results Please notify the throat culture is negative. Source: [facility] [employer] Document Id: [id number] Miscellaneous - Merlyn Jean-Baptiste - 09/26/2016 4:56 PM CST Ambulatory Discharge Medication List [address] [id number] Visit Information Name: NIKKI CARDONA [facility] Number: [id number] Current Date: 09/26/2016 16:56:23 Attending Provider: MERLYN JEAN-BAPTISTE PA-C Primary Care Provider: DEMI HONG MD NIKKI CARDONA has been given the following list of medications: Your Medications It is important to take your medications as directed. Use a pill box or chart to help remind you to take your medications. Please let your doctor or nurse know if you have problems taking your medications. Medication/Strength How to Take Indications/Special Instructions/Comments/Notes for Patient Medication Changes/Routing mupirocin topical (mupirocin 2% topical ointment) 1 elliott, Topical, three times a day Stop Taking the Following Medications: Medication list as of 09-26-16 16:56 Attention: If you have any medications at home that are not on this list, DO NOT take them until youcontact your provider for clarification. Give a copy of your medication list to your primary care provider. Update your medication list any time medications or doses are changed and carry your medication list at all times in case of emergency. Electronically Signed By: MERLYN JEAN-BAPTISTE PA-C Signed On:26-SEP-2016 16:56:22 Additional Information: Source: [facility] [employer] Document Id: [id number] DED BAND ASSEMBLER Miscellaneous - Merlyn Jean-Baptiste - 09/26/2016 4:56 PM CST Ambulatory Patient Summary [address] [id number] Visit Information Name: NIKKI CARDONA [facility] Number: [id number] Current Date: 09/26/2016 16:56:24 Physicians Attending Provider: MERLYN JEAN-BAPTISTE PA-C Primary Care Provider: DEMI HONG MD NIKKI CARDONA has been given the following list of follow-up instructions, medication list, and patient education materials: Follow-up Instructions Your Medications Here is a list of your medications. It is important to take your medications as directed. Use a pillbox or chart to help remind you to take your medications. Please let your doctor or nurse know if you have problems taking your medications. Medication/Strength How to Take Indications/Special Instructions/Comments/Notes for Patient Medication Changes/Routing mupirocin topical (mupirocin 2% topical ointment) 1 elliott, Topical, three times a day Stop Taking the Following Medications: Medication list as of 09-26-16 16:56 Attention: If you have any medications at home that are not on this list, DO NOT take them until youcontact your provider for clarification. Give a copy of your medication list to your primary care provider. Update your medication list any time medications or doses are changed and carry your medication list at all times in case of emergency. Electronically Signed By: MERLYN JEAN-BAPTISTE PA-C Signed On:26-SEP-2016 16:56:22 Your Allergies & Intolerances Substance Reaction Symptoms Category Comments No Known Medication Allergies Drug NO KNOWN DRUG ALLERGIES Your Problem List Problem Status Onset Comments None Active 05/31/2013 Pes Planus NOS Active Your Upcoming Appointments Date Time Location Provider No Appointments found Attention: Contact your local Clinic if further appointment detail needed. Consider Using Patient Online Services Patient Online Services is a secure online and Mobile application that lets you: ?? View lab and test results ?? View portions of your medical record including clinical notes, immunizations and discharge summaries ?? Request an appointment or medication refill ?? Review your appointment schedule ?? Send secure messages to your care team Its easy to create an account if you dont have one. Go to [email or web address] and click on Create Your Account. Then, follow the directions to complete the online form. Youll be asked for your [facility] number which you can find at the top of this document. Your Goals/Additional instructions: Source: [facility] [employer] Document Id: [id number] DED BAND ASSEMBLER Miscellaneous - Jenny Bennett L.PNinfa - 09/26/2016 4:29 PM CST Pediatric Business Process Lead Intake/History Pediatric Business Process Lead Intake/History Entered On: 09/26/2016 16:31 BRAIDED BAND ASSEMBLER Performed On: 09/26/2016 16:29 BRAIDED BAND ASSEMBLER by JENNY BENNETT Intake Chief Complaint : Fever , ST, [place] Onset of Symptoms : today Temperature Core : 37.9 DegC(Converted to: 100.2 DegF) Peripheral Pulse Rate : 76 /min Systolic Blood Pressure : 120 mmHg Diastolic Blood Pressure : 60 mmHg NIBP Mean : 80 mmHg Actual Weight : 55.1 kg(Converted to: 121 lb 8 oz) Weight Source : Standing scale Dosing Weight Clinic : 55.1 kg JENNY BENNETT - 09/26/2016 16:29 BRAIDED BAND ASSEMBLER General Info Information Given By : Patient, Mother Languages : Nepalese Is Patient Female and 13-50 no hysterectomy : No JENNY BENNETT - 09/26/2016 16:29 BRAIDED BAND ASSEMBLER Subjective Pain Symptoms : No JENNY BENNETT - 09/26/2016 16:29 BRAIDED BAND ASSEMBLER Dependent Habits Exposure to Tobacco Smoke : Care provider denies smoking in home Smoking Status : Never smoker Tobacco 2A : No Tobacco Use/Currently Using : No Tobacco Use/Last 30 Days : No Tobacco Use/Last 12 months : No SABRINA JENNY - 09/26/2016 16:29 BRAIDED BAND ASSEMBLER Caffeine Use Grid Caffeine Use : None BENNETTJENNY - 09/26/2016 16:29 BRAIDED BAND ASSEMBLER Recreational Drug Use Grid Drug Use : None BENNETT JENNY - 09/26/2016 16:29 BRAIDED BAND ASSEMBLER Source: [facility] [employer] Document Id: [id number] BRAIDED BAND ASSEMBLER!31 DED BAND ASSEMBLER documented in this encounter Plan of Treatment Not on filedocumented as of this encounter Procedures Procedure Name Priority Date/Time Associated Diagnosis Comme nts RAPID STREP A Routine 09/26/2016 4:33 PM Results for this SCREEN BRAIDED BAND ASSEMBLER procedure are i n the results section. RAPID STREP A Routine 09/26/2016 4:33 PM Results for this SCREEN BRAIDED BAND ASSEMBLER procedure are i n the results section. documented in this encounter Results Rapid Strep A Screen (09/26/2016 4:33 PM BRAIDED BAND ASSEMBLER) [facility] Method Time Signature HXRapid Strep POWERCHART Confirmation HXPre Pending POWERCHART HXFinal NEG POWERCHART HXFinal [facility] [address] [facility] [address] Specimen Anatomical Collection Method Collection Time Receive d Time (Source) Location / / Volume Laterality Throat 09/26/2016 4:33 PM 7 4:33 BRAIDED BAND ASSEMBLER PM BRAIDED BAND ASSEMBLER Merlyn Jean-Baptiste P.A.-C. LAB MICROBIOLOGY - GENERAL O RDERABLES Performing Organization Address City/State/ZIP Code Phon e Number POWERCHART Rapid Strep A Screen (09/26/2016 4:33 PM BRAIDED BAND ASSEMBLER) [facility] Method Time Signature HXStrep A POWERCHART Screen Rapid HXFinal Negative for POWERCHART Strep Group A by rapid screen. HXFinal Culture POWERCHART confirmation to follow. Specimen (Source) Anatomical Collection Method Collection Time Re ceived Time Location / / Volume Laterality Throat 09/26/2016 4:33 PM BRAIDED BAND ASSEMBLER Merlyn Jean-Baptiste P.A.-C. LAB MICROBIOLOGY - GENERAL O RDERABLES Performing Organization Address City/State/ZIP Code Phon e Number POWERCHART documented in this encounter Visit Diagnoses Not on filedocumented in this encounter
--- OUTSIDE RECORDS SUMMARY | 2022-05-19 19:43 | XMS_ITS | Encounter Summary ---
:2000 Author Organization [facility] Address [address] [place] [address] Care Team Providers Name Role Phone Harjeet Holly M.D. Primary Care Provider Reason for Visit Reason Comments Hand Pain Left hand - pinky finger. Blakely ppened Thursday while playing football. Appointment Request (Routine) - Closed Specialty Diagnoses / Procedures Referred By Contact Refer red To Contact Family Medicine Referral ID Status Reason Start Date Expiration Date Visits Requ ested Visits Authorized [id number] Closed 05/12/2018 05/12/2019 1 Encounter Details Date Type Department Care Team Description 05/14/2018 Office Visit Department of Family Kira Kirkland Pa in Finger Left Medicine, [place] ORTHODONTIC TREATMENT COORDINATOR, C.N.P., ([facility]) Clinic, in [address] [phone] Social History Tobacco Use Types Packs/Day Years Used Date Smoking Tobacco: Never Sex Assigned at Date Recorded Not on file documented as of this encounter Last Filed Vital Signs Vital Sign Reading Time Taken Comments Blood Pressure 118/55 05/14/2018 9:38 AM CDT Pulse 56 05/14/2018 9:38 AM CDT Temperature 36.5 ??C (97.7 ??F) 05/14/2018 9:38 AM CDT Respiratory Rate 18 05/14/2018 9:38 AM CDT Oxygen Saturation 98% 05/14/2018 9:38 AM CDT Inhaled Oxygen Concentration - - Weight 68 kg (149 lb 14.6 oz) 05/14/2018 9:38 AM CDT Height 177 cm (5' 9.69) 05/14/2018 9:38 AM CDT Body Mass Index 21.71 05/14/2018 9:38 AM CDT Body Mass Index Percentile 68.82 % 05/14/2018 9:38 AM CD T Growth Chart: [facility] (Boys, 2-20 Years) documented in this encounter Progress Notes Kira Kirkland, OLIVE, C.N.P., D.N.P. - 05/14/2018 9:30 AM CDT .CHIEF COMPLAINT / REASON FOR VISIT Ovidio Perera is a 17 y.o. male who presents for evaluation of Hand Pain (Left hand - pinky finger. Happened Thursday while playing football.). HISTORY OF PRESENT ILLNESS Ovidio is a pleasant 17 y.o. male that presents to the clinic today for evaluation of left pinky finger pain after a football struck the ulnar aspect of his finger during football practice for 3 daysago. He reports using ibuprofen and ice for symptoms with some improvement. He reports no pain at rest but increased discomfort at the middle joint with movement. He reports finishing the football gameat the time of injury however he has not practiced since due to increased finger pain. He reports initial swelling and some bruising which is slowly resolving. The following portions of the patient's history were reviewed and updated as appropriate: allergies,current medications, family history, medical history, social history, surgical history and problem list. Brief Review of Systems: A brief review of systems was negative except for that mentioned in the history of present of illness. No current outpatient prescriptions on file. No Known Allergies PHYSICAL EXAM BP 118/55 (BP Location: Right arm, Patient Position: Sitting, Cuff Size: Regular) Pulse (!) 56 Temp 36.5 ??C (Temporal) Resp 18 Ht 177 cm Wt 68 kg SpO2 98% BMI 21.71 kg/m?? Body mass index is 21.71 kg/m??. GENERAL: Patient is in no distress. Capable of full communication without difficulty. Patient is polite and cooperative. FINGER: LEFT 5th finger is moderately swollen. No discoloration noted. Full flexion and extension ofhis finger causes increased pain. Pain with palpation over PIP joint. NEURO: Alert and oriented x3, nonfocal, moving all 4 extremities. CN II-XII grossly intact. PSYCH: Affect is appropriate DIAGNOSTICS: 5th FINGER X-RAY IMPRESSION: Oblique hairline fracture involving the left fifth proximal phalanx. No angulation or displacement. Joint spaces appear maintained. No bony erosive or osteolytic changes or evidence of opaque foreign body. Soft tissue swelling proximal left fifth finger. ASSESSMENT/PLAN: #1 Pain Finger Left Patient left pinky finger was splinted/mobilized well in the clinic today. An oblique hairline fracture was noted up above in the left 5th proximal phalanx. No angulation or displacement noted. Resultsreviewed with Dr. Holly who recommended splinting/immobilizing finger for the next 6 weeks. Continue with conservative pain management - ibuprofen/Tylenol, ice, immobilization and rest. I also advised against football for the next 6 weeks to allow for healing. He will continue to monitor symptoms closely and follow up with concerns. Patient was instructed to present urgently to the clinic/ER if symptoms worsen or fail to improve over the next several days. Follow-up otherwise as mentioned above. Plan was discussed with patient and is in agreement with plan. All questions were answered, side effects of any/all new medications were discussed. Patient left in no acute distress. Ready to learn. No apparent learning barriers were identified. Learning preferences include listening. Explained diagnosis and treatment plan. Patient/Child/Caregiver expressed understanding of the content. Kira Kirkland APRN, C.N.P., D.N.P. documented in this encounter Plan of Treatment Not on filedocumented as of this encounter Visit Diagnoses Diagnosis Pain Finger Left - Primary documented in this encounter Care Teams Coil Finisher Relationship Specialty Start Date End Date Harjeet Holly M.D. PCP - General 01/29/[id number] [phone] documented as of this encounter
--- OUTSIDE RECORDS SUMMARY | 2022-05-19 19:43 | XMS_ITS | Encounter Summary ---
:2000 Author Organization [facility] Address [address] [place] [address] Care Team Providers Name Role Phone Unavailable Primary Care Provider Unavailable Encounter Details Date Type Department Care Team Description 12/07/2006 Hospital Encounter HX [facility] Noble Ryan M.D. [address], [place] [address] (Wo rk) Social History Tobacco Use Types Packs/Day Years Used Date Smoking Tobacco: Never Assessed Sex Assigned at Date Recorded Not on file documented as of this encounter Progress Notes Noble Ryan M.D. - 12/07/2006 3:10 PM CDT [id number] This child DOES NOT QUALIFY FOR [facility] PROGRAM Ovidio Corrina Perera is a 6 year old male here for 6 year well child exam. Brought in by mother. HISTORY Current Concerns: none Diet: appropriate diet Water Source: [place] water. Elimination: Normal bowel movements and Normal urination. Sleep: sleeps through the night Daycare: No Noteworthy social stressors: none History Modules Reviewed: Yes There is no problem list on file for this patient. Any hearing or vision concerns? no DEVELOPMENTAL SCREEN: Parent Concerns about Development: NO School district screening (hearing/vision):Yes SOCIAL Names friend: Yes Wash and Dry hands: Yes Dresses independently:Yes FINE MOTOR Copies anvik: Yes Copies cross: Yes Copies square: Yes Thumb wiggle: Yes GROSS MOTOR Down Stairs alone: Yes Balance 1 foot 2 sec: Yes Hop on each foot(5x): Yes LANGUAGE Understandable speech:Yes Count by rote: Yes PHYSICAL EXAM: There were no vitals taken for this visit. Growth charts reviewed. General: Alert, interactive and appropriate Head: NORMAL Eyes: NORMAL EOM (cover/uncover): NORMAL Ears: NORMAL Nose: NORMAL Mouth: NORMAL Neck: NORMAL Resp: NORMAL Heart: NORMAL Abdomen: NORMAL Genitalia: NORMAL male - circumcised Musculoskeletal: NORMAL Gait: NORMAL Skin: NORMAL Neurological: NORMAL EDUCATION/DISCUSSED: Bike helmet safety Carseat to 40 lbs/Belt positioning booster to 70 lbs Dental visit Sunscreen Limit TV Risk Assessment Reviewed and Discussed:Yes,Nutrition and Safety ASSESSMENT/PLAN: Normal growth and development at 6 year old. Handout on age appropriate development/safety given. Reviewed immunizations. Return in 1 year (age 7 years). Source: [facility] [id number] Document Id: [id number] Electronically signed by Conversion, [facility] Tape Recorder Mechanic [id number] at 01/19/2017 8:38 AM CDT documented in this encounter Plan of Treatment Not on filedocumented as of this encounter Visit Diagnoses Not on filedocumented in this encounter
--- OUTSIDE RECORDS SUMMARY | 2022-05-19 19:43 | XMS_ITS | Encounter Summary ---
:2000 Author Organization [facility] Address [address] [place] [address] Care Team Providers Name Role Phone Unavailable Primary Care Provider Unavailable Encounter Details Date Type Department Care Team Description 08/05/2007 Hospital Encounter HX [facility] ORTHO Alexander Rivera P.A.-C. Social History Tobacco Use Types Packs/Day Years Used Date Smoking Tobacco: Never Assessed Sex Assigned at Date Recorded Not on file documented as of this encounter Progress Notes Alexander Rivera - 08/05/2007 10:20 AM CST [id number] CLINIC ENCOUNTER Mr. Perera is a pleasant 6-year-old gentleman who is here for evaluation of distal radius fracture. Patient is doing well. Cast was removed. Range of motion of the wrist was excellent. Circulation motion sensation of the hand is intact. Radiographs that were taken demonstrate excellent alignment to the fracture with evidence of good healing and periosteal reaction. ASSESSMENT/PLAN: Mr. Perera is a 6-year-old gentleman accompanied by his mother who is about 1 month out from a distal radius fracture. We talked about the continued importance of activity modification. He was given a wrist splint at today's visit and they were told they could wean out of this over the next few weeks. If they have any questions or concerns, they were encouraged to call otherwise we talked about his return to activity. CHRISTIAN Hernandez/rolando cc: Source: [facility] Document Id: [id number] Electronically signed by Jennie Ar[facility] Founder President And Ceo [id number] at 01/19/2017 6:06 AM CDT documented in this encounter Plan of Treatment Not on filedocumented as of this encounter Visit Diagnoses Not on filedocumented in this encounter
--- OUTSIDE RECORDS SUMMARY | 2022-05-19 19:43 | XMS_ITS | Encounter Summary ---
:2000 Author Organization [facility] Address [address] [place] [address] Care Team Providers Name Role Phone Unavailable Primary Care Provider Unavailable Encounter Details Date Type Department Care Team Description 10/02/2005 Hospital Encounter HX NO MAPPING Nerissa Dutton M.D. [address] [place] [phone] (Wo rk) Social History Tobacco Use Types Packs/Day Years Used Date Smoking Tobacco: Never Assessed Sex Assigned at Date Recorded Not on file documented as of this encounter Progress Notes Conversion, Historical Provider Ser - 10/02/2005 6:45 PM CST [id number] SUBJECTIVE: Patient comes in with history of arm pain. It started about 3 o'clock when mom picked him up by the right arm. He started crying and kind of holding his arm. Mom thinks he has pain more around the wrist area. Says she thinks he's had kind of a nursemaid's elbow before. OBJECTIVE: Patient is sitting up holding his arm at the side. May be just a slight swelling over the dorsal part of the wrist, otherwise he moves the wrist pretty well. With manipulation of forearm he definitely has pain. It's difficult to localize if it's more at the elbow area and seems to be almost more at the wrist. Pulses and sensation are intact. X-ray of the wrist and elbow are negative. Further manipulation of the elbow with it flexed and pronated, a pop is felt over the radial head. ASSESSMENT: Nursemaid's elbow now reduced. PLAN: Discussed the use of ibuprofen, call or return if symptoms persist or worsen. Roland Dutton M.D./kaleigh Source: [facility] Document Id: [id number] documented in this encounter Plan of Treatment Not on filedocumented as of this encounter Visit Diagnoses Not on filedocumented in this encounter
--- OUTSIDE RECORDS SUMMARY | 2022-05-19 19:43 | XMS_ITS | Encounter Summary ---
:2000 Author Organization [facility] Address [address] [place] [address] Care Team Providers Name Role Phone Unavailable Primary Care Provider Unavailable Encounter Details Date Type Department Care Team Description 07/26/2015 Hospital Encounter HX [facility] Kulwinder Hong M.D. [address] [place] [phone] (Wo rk) Social History Tobacco Use Types Packs/Day Years Used Date Smoking Tobacco: Never Assessed Sex Assigned at Date Recorded Not on file documented as of this encounter Last Filed Vital Signs Vital Sign Reading Time Taken Comments Blood Pressure - - Pulse - - Temperature - - Respiratory Rate - - Oxygen Saturation - - Inhaled Oxygen Concentration - - Weight 41.7 kg (91 lb 14.9 oz) 07/26/2015 12:01 PM DYE COLORIST FORMULATOR Height - - Body Mass Index - - documented in this encounter Progress Notes Demi Hong M.D. - 07/26/2015 11:54 AM CST [id number] CHIEF COMPLAINT/REASON FOR VISIT Fever, sore throat. HISTORY OF THE ILLNESS Nikki is a pleasant 14-year-old gentleman who presents to clinic today with a 3-day history of fever, sore throat, and headache. The fevers have been controlled with Tylenol and ibuprofen. He is tolerating an oral diet. Nasal congestion reported. Mild cough. No shortness of breath, wheezing or difficulty. MEDICATIONS Mupirocin topical ointment. ALLERGIES No known drug allergies. SYSTEMS REVIEW As per HPI. Otherwise, negative. PHYSICAL EXAMINATION VITAL SIGNS: Temperature 38.7, heart rate 111, respiratory rate 18, blood pressure 115/62, weight 41.7 kg. GENERAL: He is alert, pleasant, interactive male, sitting comfortably in chair in no acute distress. HEENT: Head is atraumatic, normocephalic. Eyes: Pupils are equal and react to light and accommodation. Extraocular muscle intact. Nares are patent without rhinorrhea. Oropharynx is moist with erythematous posterior pharynx. Edema noted. No significant purulence. NECK: Supple with cervical lymph chain adenopathy. HEART: Regular rate and rhythm. LUNGS: Clear to auscultation bilaterally. DIAGNOSTICS Rapid strep test negative. IMPRESSION/REPORT/PLAN Pharyngitis. Patient's symptoms are most likely viral at this point. Recommended conservative management this time to include rest, fluids, ibuprofen and Tylenol for pain and fever control. Did provide a lafh-dpu-crzjg prescription for amoxicillin if symptoms should progress or if his strep culture should return positive. Father is in agreement and understanding of the plan. All questions answered. Demi Hong M.D./jose Electronically Signed By: DEMI HONG MD On: 07/26/2015 04:34 PM Source: [facility] MHSDOLBEYNONRADSYS Document Id: [id number] COLORIST FORMULATOR documented in this encounter Miscellaneous Notes Miscellaneous - Demi Hong M.D. - 07/26/2015 12:27 PM CST Ambulatory Patient Summary [address] [id number] Visit Information Name: SAGETANMAY ELLSWORTHINICK CATHERINE [facility] Number: [id number] Current Date: 07/26/2015 12:27:10 Physicians Attending Provider: DEMI HONG MD Primary Care Provider: CRESCENCIO HENRIQUEZ RN, ADVERTISEMENT COMPOSITOR BRENDANNIKKI has been given the following list of [...] Take Indications/Special Instructions/Comments/Notes for Patient Medication Changes/Routing amoxicillin (Amoxil 500 mg oral tablet) 2 Tablet(s), Oral, two times a day x 10 day(s) New Routed [facility] [address] [address] mupirocin topical (mupirocin 2% topical ointment) 1 elliott, Topical, three times a day Stop Taking the Following Medications: Medication list as of 07-26-15 12:27 Attention: If you have any medications at home that are not on this list, DO NOT take them until youcontact your provider for clarification. Give a copy of your medication list to your primary care provider. Update your medication list any time medications or doses are changed and carry your medication list at all times in case of emergency. Electronically Signed By: DEMI HONG MD Signed On:26-JUL-2015 12:27:02 Your Allergies & Intolerances Substance Reaction Symptoms [...] if you dont have one. Go to [email or web address] and click on Create Your Account. Then, follow the directions to complete the online form. Youll be asked for your [facility] number which you can find at the top of this document. Your Goals/Additional instructions: Source: [facility] POWERCHART Document Id: [id number] COLORIST FORMULATOR Miscellaneous - Demi Hong M.D. - 07/26/2015 12:27 PM CST Ambulatory Discharge Medication List [address] [id number] Visit Information Name: NIKKI CARDONA [facility] Number: [id number] Visit Date: 07/26/2015 12:27:09 Attending Provider: DEMI HONG MD Primary Care Provider: CRESCENCIO HENRIQUEZ RN, ADVERTISEMENT COMPOSITOR NKIKI CARDONA has been given the following list of medications: Your Medications It is important to take your medications as directed. Use a pill box or chart to help remind you to take your medications. Please let your doctor or nurse know if you have problems taking your medications. Medication/Strength How to Take Indications/Special Instructions/Comments/Notes for Patient Medication Changes/Routing amoxicillin (Amoxil 500 mg oral tablet) 2 Tablet(s), Oral, two times a day x 10 day(s) [facility]ed [facility] [address] [address] mupirocin topical (mupirocin 2% topical ointment) 1 elliott, Topical, three times a day Stop Taking the Following Medications: Medication list as of 07-26-15 12:27 Attention: If you have any medications at home that are not on this list, DO NOT take them until youcontact your provider for clarification. Give a copy of your medication list to your primary care provider. Update your medication list any time medications or doses are changed and carry your medication list at all times in case of emergency. Electronically Signed By: DEMI HONG MD Signed On:26-JUL-2015 12:27:02 Additional Information: Source: [facility] POWERCHART Document Id: [id number] COLORIST FORMULATOR Miscellaneous - Fran Aguilar, L.P.N. - 07/26/2015 12:01 PM CST Pediatric Cna Pct Intake/History Pediatric Cna Pct Intake/History Entered On: 07/26/2015 12:03 DYE COLORIST FORMULATOR Performed On: 07/26/2015 12:01 DYE COLORIST FORMULATOR by FRAN AGUILAR SILVER LAP MACHINE TENDER, RT Intake Chief Complaint : headache, sore throat, and fever x 3 days Temperature Core : 38.7 DegC(Converted to: 101.7 DegF) (HI) Peripheral Pulse Rate : 111 /min (HI) Respiratory Rate : 18 /min Systolic Blood Pressure : 115 mmHg Diastolic Blood Pressure : 62 mmHg NIBP Mean : 80 mmHg BP Location : Left upper extremity Blood Pressure Cuff Size : Regular Actual Weight : 41.7 kg(Converted to: 91 lb 15 oz) Weight Source : Standing scale Dosing Weight Clinic : 41.7 kg FRAN AGUILAR LPN, RT - 07/26/2015 12:01 DYE COLORIST FORMULATOR General Info Accompanied By : Father, Mother Languages : Estonian Is Patient Female and 13-50 no hysterectomy : No FRAN AGUILAR LPN, RT - 07/26/2015 12:01 DYE COLORIST FORMULATOR Subjective Pain Symptoms : Yes FRAN AGUILAR LPN, RT - 07/26/2015 12:01 DYE COLORIST FORMULATOR Pain Scale Pain Scale Verbal 0-10 : Open FRAN AGUILAR LPN, RT - 07/26/2015 12:01 DYE COLORIST FORMULATOR Pain Pain Assessment Grid Pain 1 Location : Throat FRAN AGUILAR LPN, RT - 07/26/2015 12:01 DYE COLORIST FORMULATOR Dependent Habits Exposure to Tobacco Smoke : Care provider denies smoking in home Smoking Status : Never smoker Tobacco 2A : No FRAN AGUILAR LPN, RT - 07/26/2015 12:01 DYE COLORIST FORMULATOR Caffeine Use Grid Caffeine Use : None FRAN AGUILAR LPN, RT - 07/26/2015 12:01 DYE COLORIST FORMULATOR Recreational Drug Use Grid Drug Use : None FRAN AGUILAR LPN, RT - 07/26/2015 12:01 DYE COLORIST FORMULATOR Source: [facility] POWERCHART Document Id: [id number] DYE COLORIST FORMULATOR!36 COLORIST FORMULATOR documented in this encounter Plan of Treatment Not on filedocumented as of this encounter Procedures Procedure Name Priority Date/Time Associated Diagnosis Comme nts RAPID STREP A Routine 07/26/2015 12:12 PM Results for this SCREEN DYE COLORIST FORMULATOR procedure are i n the results section. RAPID STREP A Routine 07/26/2015 12:12 PM Results for this SCREEN DYE COLORIST FORMULATOR procedure are i n the results section. documented in this encounter Results Rapid Strep A Screen (07/26/2015 12:12 PM DYE COLORIST FORMULATOR) [facility] Method Time Signature HXRapid Strep POWERCHART Confirmation HXPre Negative for POWERCHART Group A Strep by culture. HXFinal Negative for POWERCHART Group A Strep by culture. Specimen Anatomical Collection Method Collection Time Receive d Time (Source) Location / / Volume Laterality Throat 07/26/2015 12:12 07/26/2015 PM DYE COLORIST FORMULATOR 12:12 PM DYE COLORIST FORMULATOR Demi Hong M.D. LAB MICROBIOLOGY - GENERAL O YOVANI Performing Organization Address City/State/[facility] Code Phon e Number POWERCHART Rapid Strep A Screen (07/26/2015 12:12 PM DYE COLORIST FORMULATOR) [facility] Method Time Signature HXStrep A POWERCHART Screen Rapid HXFinal Negative for POWERCHART Strep Group A by rapid screen. HXFinal Culture POWERCHART confirmation to follow. Specimen (Source) Anatomical Collection Method Collection Time Re ceived Time Location / / Volume Laterality Throat 07/26/2015 12:12 PM DYE COLORIST FORMULATOR Demi Hong M.D. LAB MICROBIOLOGY - GENERAL O YOVANI Performing Organization Address City/State/[facility] Code Phon e Number POWERCHART documented in this encounter Visit Diagnoses Not on filedocumented in this encounter
--- OUTSIDE RECORDS SUMMARY | 2022-05-19 19:43 | XMS_ITS | Encounter Summary ---
:2000 Author Organization [facility] Address [address] [place] [address] Care Team Providers Name Role Phone Demi Hong M.D. Primary Care Provider Encounter Details Date Type Department Care Team Description 05/12/2017 Hospital Encounter HX [facility] Sharee Wilson P.A.-C. [address] [place], [place] [phone] (Wo rk) Social History Tobacco Use Types Packs/Day Years Used Date Smoking Tobacco: Never Sex Assigned at Date Recorded Not on file documented as of this encounter Consult Notes Uzma Wilson P.A.-C. - 05/12/2017 1:49 PM CDT [id number] CHIEF COMPLAINT/REASON FOR VISIT Left distal phalanx fracture. HISTORY OF PRESENT ILLNESS Ovidio is a very pleasant 16-year-old gentleman who is right-hand dominant presenting with his father, Brian, today. Patient 1 month ago was playing football and jammed his finger. He continued to play despite the pain and at first thought it was getting a little bit better. Then he was in a football game a week or so ago and further injured the finger by catching a football. He presented to the emergency room because of a concern about rib fracture during one of the games and decided they wouldhave the finger looked at as well. It was at that point on 05/04/2017 that the x-ray was initially evaluated and x-rays show acute mildly displaced Salter-Mendez 4 fracture of the distal phalanx of theleft 3rd finger. Mild dorsal displacement of the fracture fragment. He had no lacerations or fingernail injuries associated with this injury. He was placed in a splint and is wearing that today. ALLERGIES No known medication allergies. MEDICATIONS As noted in EMR and reconciled today. PAST MEDICAL/SURGICAL HISTORY As noted in EMR. SOCIAL HISTORY Patient is here today with his father, Brian. He has a younger sister about age 7 and the patient hossein nonsmoker, active in sports including football. PHYSICAL EXAMINATION Left 3rd finger there is inflammation about the DIP joint. He denies any pain with palpation. Neurosensory is intact to light touch. Pulses and perfusion intact and integument intact. DIAGNOSTICS X-rays left hand show an acute mildly displaced Salter-Mendez 4 fracture of the distal phalanx left 3rd finger. These x-rays were reviewed with Dr. Doss. IMPRESSION/REPORT/PLAN Left 3rd finger distal phalanx [id number]-Nxzunw-Dzvbzb 4. PLAN: Discussed with Dr. Doss. Recommendation was to send him to [facility] orthopedic hand specialist in [place]. I did provide him a note to be non- weight bearing. He will remain in his splint until he is seen by the specialists. He will avoid sports such as catching a football, dribbling or doing any type of contact sports and he expressed understanding and understood the no lifting. Mario Wilson P.A.-C./jose Electronically Signed By: UZMA WILSON PA-C On: 05/25/2017 02:09 PM Source: [facility] MHSDOLBEYNONRADSYS Document Id: [id number] documented in this encounter Miscellaneous Notes Miscellaneous - Uzma Wilson P.A.-C. - 05/12/2017 3:25 PM CDT Ambulatory Patient Summary [facility] [address], [place] [address] [place], [place] [phone] Visit Information Name: OVIDIO CARDONA [facility] Number: [id number] Current Date: 05/12/2017 15:25:47 Physicians Attending Provider: UZMA WILSON PA-C Primary Care Provider: DEMI HONG MD OVIDIO CARDONA has been given the following list [...] the Following Medications: Medication list as of 05-12-17 15:25 Attention: If you have any medications at home that are not on this list, DO NOT take them until youcontact your provider for clarification. Give a copy of your medication list to your primary care provider. Update your medication list any time medications or doses are changed and carry your medication list at all times in case of emergency. Electronically Signed By: UZMA WILSON PA-C Signed On:12-MAY-2017 15:25:44 Your Allergies & Intolerances Substance Reaction Symptoms [...] if you dont have one. Go to [email or web address] and click on Create Your Account. Then, follow the directions to complete the online form. Youll be asked for your [facility] number which you can find at the top of this document. Your Goals/Additional instructions: Source: [facility] POWERCHART Document Id: [id number] Miscellaneous - Uzma Wilson P.A.-C. - 05/12/2017 3:25 PM CDT Ambulatory Discharge Medication List [facility] [address], [address] [place], [place] [phone] Visit Information Name: SAGEOVIDIO ELLSWORTH [facility] Number: [id number] Current Date: 05/12/2017 15:25:46 Attending Provider: UZMA WILSON PA-C Primary Care Provider: DEMI HONG MD BRENDAN OVIDIOBRAD ALEXANDER has been given the following list of [...] the Following Medications: Medication list as of 05-12-17 15:25 Attention: If you have any medications at home that are not on this list, DO NOT take them until youcontact your provider for clarification. Give a copy of your medication list to your primary care provider. Update your medication list any time medications or doses are changed and carry your medication list at all times in case of emergency. Electronically Signed By: UZMA WILSON PA-C Signed On:12-MAY-2017 15:25:44 Additional Information: Source: [facility] POWERCHART Document Id: [id number] Telephone Encounter - Conversion, Historical Provider Ser - 05/12/2017 2:46 PM CDT Outside Referral ENNIS Document Contains Addenda Addendum by CHAVEZ MARAVILLA on May 18, 2017 15:22:26 CDT Thank you for your referral. We welcome the opportunity to be of service to your patient. We are pleased to confirm an appointment as follows: Date: 06/08/2017 Time:2:45pm Location: [facility], 15th Floor, Desk [address] [facility] Department: Orthopedic Surgery Provider:Dr. Gerardo Ashley Addendum by CHAVEZ MRAAVILLA on May 13, 2017 08:54:53 CDT In review. Entered by CHAVEZ MARAVILLA on May 12, 2017 14:46:17 CDT sent to [place] online The following patient has a Consult to Outside Specialist [place]: order placed. Patient Name: OVIDIO CARDONA Diagnosis: Pain in left finger(s),in left finger(s), Ordering Provider: UZMA WILSON PA-C ; Original Order DT/TM: May 12, 2017 14:35:09 CDT ; Order: Consult to Outside Specialist [place] ; Order Details: Referral For: Pediatric Department: Orthopedics Reason For Visit: displaced Salter Mendez IV fx distal phalanx left Why Needs cannot be met : NOT FOUND Why Needs cannot be met - FH : NOT FOUND Why Needs cannot be met [place] : Service not available at [facility] Facility : [facility] FH : NOT FOUND Appointment Type: Consult Appointment Type - FH: NOT FOUND Subspecialty Requested: pediatric hand specialist Appointment Timeline: 4-14 Days Schedule with Specific Provider, If Known: NOT FOUND Appointment has been/will be made by: My Hat Forming Machine Feeder/Office If yes, When is appointment: NOT FOUND Arc to Process Referral : NOT FOUND Special Instructions: This is a older fx, but needs to be seen DORINDA Reason to be Sent: NOT FOUND Pain Finger L Source: [facility] POWERCHART Document Id: [id number] Miscellaneous - Isatu Hensley LShondaP.N. - 05/12/2017 2:43 PM CDT Adult Rn First Assistant Intake/History Adult Rn First Assistant Intake/History Entered On: 05/12/2017 14:45 CDT Performed On: 05/12/2017 14:43 CDT by ISATU HENSLEY LPN Intake Chief Complaint : left middle finger injury ISATU HENSLEY LPN - 05/12/2017 14:43 CDT General Info Information Given By : Patient Languages : Micronesian Is Patient Female and 13-50 no hysterectomy : No ISATU HENSLEY LPN - 05/12/2017 14:43 CDT Subjective Pain Symptoms : Yes ISATU HENSLEY LPN - 05/12/2017 14:43 CDT Pain Scale Pain Scale Verbal 0-10 : Open ISATU HENSLEY LPN - 05/12/2017 14:43 CDT Pain Pain Assessment Grid Pain 1 Location : Finger Laterality : Left Intensity : 3 ISATU HENSLEY LPN - 05/12/2017 14:43 CDT Dependent Habits Exposure to Tobacco Smoke : Care provider denies smoking in home Smoking Status : Never smoker Tobacco 2A : No Tobacco Use/Currently Using : No Tobacco Use/Last 30 Days : No Tobacco Use/Last 12 months : No ISATU HENSLEY LPN - 05/12/2017 14:43 CDT Caffeine Use Grid Caffeine Use : None ISATU HENSLEY LPN - 05/12/2017 14:43 CDT Recreational Drug Use Grid Drug Use : None ISATU HENSLEY LPN - 05/12/2017 14:43 CDT Source: [facility] [employer] Document Id: [id number] CDT!30 Miscellaneous - Uzma Wilson P.A.-C. - 05/12/2017 2:31 PM CDT School Excuse May 12, 2017 OVIDIO CARDONA [address] [place] [phone] Dear OVIDIO CARDONA, You were examined in my office on: 05/12/2017 To return to regular activity: ( _ ) Yes ( x ) No To have modified activity: ( _ ) Yes ( _ ) No As follows: ( x ) No contact sports ( _ ) May do upper body activities ( _ ) May do lower body activities ( _ ) May do walking program ( _ ) No physical activity XXX Limit use of left hand for lifting or other activities that would involve the left middle finger such as playing catch, dribbling a basketball, etc. Duration of activity restriction: ( _ ) Days ( _ ) Weeks ( _ ) Months ( x ) Other: Until seen in consultation by Orthopedices in [place]. Sincerely, UZMA WILSON [address] [place] [phone] Electronic Signature Electronically Signed By: UZMA WILSON PA-C On: May 12, 2017 This document has images extracted. Source: [facility] POWERCHART Document Id: [id number] documented in this encounter Plan of Treatment Not on filedocumented as of this encounter Visit Diagnoses Not on filedocumented in this encounter Care Teams Manager Culinary Relationship Specialty Start Date End Date Demi Hong M.D. PCP - General 01/29/[address] [place] [phone] documented as of this encounter
--- OUTSIDE RECORDS SUMMARY | 2022-05-19 19:43 | XMS_ITS | Encounter Summary ---
:2000 Author Organization [facility] Address [address] [place] [address] Care Team Providers Name Role Phone Unavailable Primary Care Provider Unavailable Encounter Details Date Type Department Care Team Description 03/08/2015 Hospital Encounter HX [facility] ME Thomas Carlos M.D. [address], [address] [place] [address] (Wo rk) Social History Tobacco Use Types Packs/Day Years Used Date Smoking Tobacco: Never Assessed Sex Assigned at Date Recorded Not on file documented as of this encounter Last Filed Vital Signs Vital Sign Reading Time Taken Comments Blood Pressure - - Pulse - - Temperature - - Respiratory Rate - - Oxygen Saturation - - Inhaled Oxygen Concentration - - Weight 38.9 kg (85 lb 12.1 oz) 03/08/2015 9:23 AM CDT Height 153 cm (5' 0.24) 03/08/2015 9:23 AM CDT Body Mass Index 16.62 03/08/2015 9:23 AM CDT Body Mass Index Percentile 24.89 % 03/08/2015 9:23 AM CD T Growth Chart: CDC (Boys, 2-20 Years) documented in this encounter H&P Notes Thomas Carlos M.D. - 03/08/2015 9:10 AM CDT [id number] CHIEF COMPLAINT/REASON FOR VISIT Preparticipation exam. HISTORY OF PRESENT ILLNESS A 14-year-old male in with mom for 7th grade preparticipation exam. Ovidio has been healthy. No family history of cardiovascular risk or premature but he had a fracture of his left wrist without complication and no other illnesses or injuries. EXAM See copy of preparticipation forms which are scanned in for details. Of note, he has pes planus/calcaneovalgus more noticable on the left than the right but it is all flexible. He also has a small bulge in the left inguinal canal without hernia. IMPRESSION/REPORT/PLAN Normal 7th grade preparticipation examination. No restrictions. Good for 3 years. Immunizations discussed and mom will consider meningitis and hepatitis A but did not want to do that now. Discussed theimportance of arch support in his tennis issues as he continues to grow. Mom was made aware of the findings. Thomas Carlos M.D./jose Electronically Signed By: THOMAS CARLOS MD On: 03/08/2015 06:00 PM Modified by and Electronically Signed by: THOMAS CARLOS MD On: 03/08/2015 06:00 PM Source: [facility] MHSDOLBEYNONRADSYS Document Id: [id number] documented in this encounter Procedure Notes Cruz De L.P.N. - 03/08/2015 9:23 AM CDT Vision Testing Vision Testing Entered On: 03/08/2015 9:23 CDT Performed On: 03/08/2015 9:23 CDT by CRUZ DE LPN Vision Testing Corrective Lenses : None Color Vision : Pass Eye, Right w/o Correction : 20/20 Eye, Left w/o Correction : 20/20 Eyes, Both w/o Correction : 20/15 CRUZ DE LPN - 03/08/2015 9:23 CDT Source: [facility] POWERCHART Document Id: [id number] CDT!7 documented in this encounter Miscellaneous Notes Miscellaneous - Cruz De L.P.N. - 03/08/2015 9:23 AM CDT Pediatric Warehouse Examiner Intake/History Pediatric Warehouse Examiner Intake/History Entered On: 03/08/2015 9:26 CDT Performed On: 03/08/2015 9:23 CDT by CRUZ DE LPN Intake Chief Complaint : 7th grade Sports physical. Temperature Core : 36.8 DegC(Converted to: 98.2 DegF) Peripheral Pulse Rate : 92 /min (HI) Respiratory Rate : 16 /min Systolic Blood Pressure : 109 mmHg Diastolic Blood Pressure : 68 mmHg NIBP Mean : 82 mmHg BP Location : Left upper extremity Blood Pressure Cuff Size : Regular SpO2 : 100 % Oxygen Therapy : Room air Height : 153 cm(Converted to: 5 ft 0 inch(es), 60 inch(es)) Actual Weight : 38.9 kg(Converted to: 85 lb 12 oz) Weight Source : Standing scale Dosing Weight Clinic : 38.9 kg Clinic BSA : 1.29 Body Mass Index : 16.62 kg/m2 CRUZ DE LPN - 03/08/2015 9:23 CDT General Info Information Given By : Patient, Mother Languages : Bengali Is Patient Female and 13-50 no hysterectomy : No CRUZ DE LPN - 03/08/2015 9:23 CDT Subjective Pain Symptoms : No CRUZ DE LPN - 03/08/2015 9:23 CDT Dependent Habits Tobacco Use/Currently Using : No Exposure to Tobacco Smoke : Care provider denies smoking in home Smoking Status : Never smoker Alcohol Use : No CRUZ DE LPN - 03/08/2015 9:23 CDT Caffeine Use Grid Caffeine Use : None CRUZ DE LPN - 03/08/2015 9:23 CDT Recreational Drug Use Grid Drug Use : None CRUZ DE LPN - 03/08/2015 9:23 CDT Source: [facility] MunchkinCHART Document Id: [id number] CDT!36 documented in this encounter Plan of Treatment Not on filedocumented as of this encounter Visit Diagnoses Not on filedocumented in this encounter
--- OUTSIDE RECORDS SUMMARY | 2022-05-19 19:43 | XMS_ITS | Encounter Summary ---
:2002 Author Organization [facility] Address [address] [place] [address] Care Team Providers Name Role Phone Unavailable Primary Care Provider Unavailable Encounter Details Date Type Department Care Team Description 05/31/2013 Hospital Encounter HX [facility] FAMILY ME Noemi Shane, OLIVE, C.N.P., D. N.P. [address] [place] [phone] (Wo rk) Social History Tobacco Use Types Packs/Day Years Used Date Smoking Tobacco: Never Assessed Sex Assigned at Date Recorded Not on file documented as of this encounter Last Filed Vital Signs Vital Sign Reading Time Taken Comments Blood Pressure - - Pulse - - Temperature - - Respiratory Rate - - Oxygen Saturation - - Inhaled Oxygen Concentration - - Weight 32.2 kg (70 lb 15.8 oz) 05/31/2013 3:32 PM CDT Height 144.5 cm (4' 8.89) 05/31/2013 3:32 PM CDT Body Mass Index 15.42 05/31/2013 3:32 PM CDT Body Mass Index Percentile 19.30 % 05/31/2013 3:32 PM CD T Growth Chart: CDC (Boys, 2-20 Years) documented in this encounter Progress Notes Noemi Shane, Valentino.N.P., C.N.P. - 05/31/2013 3:25 PM CDT [id number] CHIEF COMPLAINT/REASON FOR VISIT Left forearm discomfort. HISTORY OF PRESENT ILLNESS This patient is a 12-year-old male who is brought to the clinic by his father today with chief complaint of left wrist pain over the distal ulnar area status post fall 3 days ago. He indicates he was trying to be Superman and inadvertently falling and landing on his left wrist. He indicates he has been having pain since. He indicates he has not taken anything [id number] to help the symptoms of discomfort but has been wearing a wrist brace that his grandmother provided. They were concerned regarding the continued wrist pain and wanted to come in today for follow-up care. MEDICATIONS ALLERGIES Medications and allergies reviewed. Please see chart. PAST MEDICAL HISTORY/SURGICAL HISTORY FAMILY HISTORY Past medical, surgical, family history reviewed. Please see chart. PHYSICAL EXAMINATION GENERAL: Patient is an alert and well-nourished 12-year-old male who appears in no acute distress. HEAD: Normocephalic, atraumatic. EXTREMITIES/JOINTS: He is noted to have full flexion, extension and lateral to lateral rotation withvery minimal difficulty. He does have significant discomfort over the distal ulnar area with extension of the left upper extremity in supination. Radial pulses +3 on a scale from 0 to 4 and hand grasp is strong and intact. IMAGING: Two views of the left first were obtained which was negative and no acute fracture is noted. Articulations appeared normal and no soft tissue swelling was noted. IMPRESSION/REPORT/PLAN Left wrist sprain. PLAN: Discussed overall findings at length with the patient's father. At this time, I advised he cancontinue wearing a brace as needed only for the next couple days duration. If his symptoms are well-controlled, he can discontinue wearing the wrist brace. Advised he can take ibuprofen [id number]-[id number] as directed on package as needed with food in stomach. Advised that if the symptoms worsen or continue in the next 7 to 10 days duration follow-up would be warranted. Patient and patient's father's understand this plan and they felt very comfortable with this treatment plan. Otherwise they denied anyfurther questions or concerns. Patient ambulated out of the clinic in no acute distress. Patient Education #1 Patient/parent/caregiver is ready to learn. No apparent learning barriers were identified. Learning preferences included listening. Explained diagnosis and treatment plan. Patient/parent/caregiver expressed understanding of the content. Breanna Robert.P./MaikolNShondaP/melina Electronically Signed By: NOEMI SHANE DNP, FNP On: 06/07/2013 08:50 PM Source: [facility] MHSDOLBEYNMIRS Document Id: [id number] documented in this encounter Miscellaneous Notes Miscellaneous - Noemi Shane D.N.P., C.N.P. - 05/31/2013 4:25 PM CDT Ambulatory Depart Summary [address] [address] Visit Information Name: NIKKI CARDONA CATHERINE [facility] Number: [id number] Visit Date: 05/31/2013 16:25:46 Attending Provider: NOEMI SHANE DNP, FNP Primary Care Provider: PCP, ELSEWHERE NIKKI CARDONA has been given the following list of medications: Your Medications It is important to take your medications as directed. Use a pill box or chart to help remind you to take your medications. Please let your doctor or nurse know if you have problems taking your medications. Medication/Strength Dose Route Frequency Indications/Special Instructions/Comments/Notes No Medications found Attention: If you have any medications at home that are not on this list, DO NOT take them until youcontact your provider for clarification. Additional Information: Source: [facility] POWERCHART Document Id: [id number] Miscellaneous - Noemi Shane D.N.PShonda, C.N.P. - 05/31/2013 4:25 PM CDT Ambulatory Patient Summary [address] [address] Visit Information Name: NIKKI CARDONA CATHERINE [facility] Number: [id number] Current Date: 05/31/2013 16:25:47 Physicians Attending Provider: NOEMI SHANE DNP, FNP Primary Care Provider: PCP, ELSEWHERE NIKKI CARDONA has been given the following [...] you have problems taking your medications. Medication/Strength Dose Route Frequency Indications/Special Instructions/Comments/Notes No Medications found Attention: If you have any medications at home that are not on this list, DO NOT take them until youcontact your provider for clarification. Your Allergies & Intolerances Substance Reaction Symptoms Category Comments No Known Allergies Your Problem List Problem Status Onset Comments None Active 05/31/2013 Your Upcoming Appointments Date Time Location Reason Provider No Appointments found Attention: Contact your local Clinic if further appointment detail needed. Your Goals/Additional instructions: Source: [facility] POWERCHART Document Id: [id number] Miscellaneous - Yodit Martinez L.P.N. - 05/31/2013 3:32 PM CDT Pediatric Liner Worker Intake/History Pediatric Liner Worker Intake/History Entered On: 05/31/2013 15:37 CDT Performed On: 05/31/2013 15:32 CDT by YODIT MARTINEZ LPN Intake Chief Complaint : Left wrist, got tackled at school on last Thursday, hurts when turning wrist Peripheral Pulse Rate : 80 /min Respiratory Rate : 16 /min Heart Rhythm : Regular Systolic Blood Pressure : 100 mmHg Diastolic Blood Pressure : 62 mmHg NIBP Mean : 75 mmHg BP Location : Right upper extremity Blood Pressure Cuff Size : Regular SpO2 : 98 % Oxygen Therapy : Room air Height : 144.5 cm(Converted to: 4 ft 9 inch(es), 56.89 inch(es)) Actual Weight : 32.2 kg(Converted to: 71 lb 0 oz) Weight Source : Standing scale Dosing Weight Clinic : 32.2 kg Clinic BSA : 1.14 Body Mass Index : 15.42 kg/m2 YODIT MARTINEZ LPN - 05/31/2013 15:32 CDT General Info Mode of Arrival : Ambulatory Accompanied By : Father Information Given By : Patient, Father Languages : Comoran YODIT MARTINEZ LPN - 05/31/2013 15:32 CDT Subjective Pain Symptoms : No YODIT MARTINEZ LPN - 05/31/2013 15:32 CDT Dependent Habits Tobacco Use/Currently Using : No Tobacco Use/Last 12 months : No Tobacco Use/Advised to Quit : No Exposure to Tobacco Smoke : Care provider denies smoking in home Smoking Status : Never smoker Alcohol Use : No YODIT MARTINEZ LPN - 05/31/2013 15:32 CDT Caffeine Use Grid Caffeine Use : None YODIT MARTINEZ LPN - 05/31/2013 15:32 CDT Recreational Drug Use Grid Drug Use : None YODIT MARTINEZ LPN - 05/31/2013 15:32 CDT Source: [employer] Document Id: [id number] CDT!39 documented in this encounter Plan of Treatment Not on filedocumented as of this encounter Visit Diagnoses Not on filedocumented in this encounter
--- OUTSIDE RECORDS SUMMARY | 2022-05-19 19:43 | XMS_ITS | Encounter Summary ---
:2002 Author Organization [facility] Address [address] [place] [address] Care Team Providers Name Role Phone Unavailable Primary Care Provider Unavailable Encounter Details Date Type Department Care Team Description 07/13/2007 Hospital Encounter HX [facility] Alexander Rivera, RobynAMarcia. Social History Tobacco Use Types Packs/Day Years Used Date Smoking Tobacco: Never Assessed Sex Assigned at Date Recorded Not on file documented as of this encounter Progress Notes Alexander Rivera - 07/13/2007 2:20 PM CST [id number] CLINIC ENCOUNTER SUBJECTIVE: Ovidio Perera is a pleasant 6-year-old boy accompanied by his mother and grandmother who is here today for evaluation of an injury he sustained to his right wrist less than one week ago. About 4-5 days ago he was playing with his cousin when he fell off a step. No one witnessed the injury so the exact mechanism is not known. He is here today for orthopedic follow up. OBJECTIVE: On examination he has no snuffbox tenderness. Circulation, muscle sensation of the hand is intact and radiographs that were taken just a few days ago demonstrate a Salter type II injury of the radius with some dorsal displacement as well as a fracture of the lateral aspect of the ulna with some mild displacement. These x-rays were reviewed with the patient and his mother. ASSESSMENT AND PLAN: Ovidio Perera is a pleasant 6-year-old boy with a distal both bone forearm fracture. Alignment appears to be doing reasonably well. At today's visit we talked about his situation. He was placed into a cast which was well molded and placed into a little bit of some volar flexion. If the patient or his mother have any questions or concerns they were encouraged to call. Otherwise they were told to follow up in about 4 week's time for cast removal, repeat radiographs and likely transitioning back into the removable splint that he had on today. CHRISTIAN Hernandez/stacy cc: [facility]: [facility] RWHXTRANSXSYS Document Id: [id number] Electronically signed by Jennie, [facility] Centerpau[facility] Phlebotomy Services Technician [id number] at 01/19/2017 10:11 AM CDT documented in this encounter Plan of Treatment Not on filedocumented as of this encounter Visit Diagnoses Not on filedocumented in this encounter
--- OUTSIDE RECORDS SUMMARY | 2022-05-19 19:43 | XMS_ITS | Encounter Summary ---
:2002 Author Organization [facility] Address [address] [place] [address] Care Team Providers Name Role Phone Unavailable Primary Care Provider Unavailable Encounter Details Date Type Department Care Team Description 07/12/2008 Hospital Encounter HX NO MAPPING Erica Mills M.D. [address], [place] [phone] (Wo rk) Social History Tobacco Use Types Packs/Day Years Used Date Smoking Tobacco: Never Assessed Sex Assigned at Date Recorded Not on file documented as of this encounter Progress Notes Erica Mills M.D. - 07/12/2008 5:00 PM CST [id number] 7 -year-old who is brought in by mom with complaints of left ear pain since this morning. He has had a mild cold with some nasal congestion over the past few days, but nothing mom was worried about, but he suddenly started complaining of persisting ear pain, so she decided to bring him in and have it checked. She has not noticed any drainage from the ear. ALLERGIES: No known drug allergies. PAST MEDICAL HISTORY: The child has had otitis media as a baby, but nothing since then. Currently Tylenol on a PRN basis. PHYSICAL EXAM: Vital signs: Stable. Patient is resting comfortably. He is afebrile. Tympanic membrane on the right appears intact and lustrous. On left it is intensely erythematous and bulging. It is dull and no fluid level noted. Nasal mucosa is congested with clear nasal drainage. Throat: No erythema or exudate. Neck: Supple. Neck veins are flat. No lymphadenopathy or thyromegaly noted. Respiratory System: Clear to auscultation. Cardiovascular System: Regular rate and rhythm, no murmur, gallop or rub. IMPRESSION: Acute serous otitis media on the left. RECOMMENDATION: Patient is started on Amoxil Chewables 250 milligrams 1 po three times daily for the next 10 days. If symptoms do not improve or worsen, then he should be reassessed by his PCP. Mom expresses understanding. Erica Mills M.D. STACEY/rolando Source: [facility]US[facility] [id number] Document Id: [id number] Electronically signed by Jennie, [facility] Luster Repairer [id number] at 01/19/2017 1:33 AM CDT documented in this encounter Plan of Treatment Not on filedocumented as of this encounter Visit Diagnoses Not on filedocumented in this encounter
--- OUTSIDE RECORDS SUMMARY | 2022-05-19 19:43 | XMS_ITS | Encounter Summary ---
:2000 Author Organization [facility] Address [address] [place] [address] Care Team Providers Name Role Phone Demi Hong M.D. Primary Care Provider Encounter Details Date Type Department Care Team Description 05/04/2017 Hospital Encounter HX [facility] ED Beth Frank, P.A.-C. [address] [place] [address] [phone] (Wo rk) Social History Tobacco Use Types Packs/Day Years Used Date Smoking Tobacco: Never Sex Assigned at Date Recorded Not on file documented as of this encounter Last Filed Vital Signs Vital Sign Reading Time Taken Comments Blood Pressure - - Pulse - - Temperature - - Respiratory Rate - - Oxygen Saturation - - Inhaled Oxygen Concentration - - Weight 60 kg (132 lb 4.4 oz) 05/04/2017 8:50 PM CDT Height - - Body Mass Index - - documented in this encounter Discharge Summaries Jose Dorman RShondaN. - 05/04/2017 9:49 PM CDT ED Discharge Instructions [address] [address] Name: OVIDIO CARDONA Date of : 2000 12:00 AM Visit Date: 05/04/2017 8:46 PM [facility] Number: [id number] Address: [address] [place] [phone] Primary Care Provider: DEMI HONG MD IMPORTANT: [facility] in [place] would like to thank you for allowing us to assist you with your healthcare needs. The following includes patient education materials and informationregarding your injury/illness. Diagnosis: Fracture Finger Closed Initial; Pain Chest Wall (CWP) Follow-Up Instructions: Your Upcoming Appointments: Date Time Location Provider No Appointments found Patient Education Materials: Fracture: Finger [Closed] You have a fracture of your finger (broken finger). This causes local pain, swelling and bruising. This injury takes about four weeks to heal. Finger injuries are often treated with a splint, cast or by taping the injured finger to the next one (skyler taping). This protects the injured finger and holds the bone in position while it heals. More serious fractures may require surgery. If the FINGERNAIL has been severely injured, it will probably fall off in 1-2 weeks. A new fingernail will usually start to grow back within a month. Home Care: 1) Keep your hand elevated to reduce pain and swelling. When sitting or lying down elevate your arm above the level of your heart. You can do this by placing your arm on a pillow that rests on your chest or on a pillow at your side. This is most important during the first 48 hours after injury. 2) Apply an ice pack (ice cubes in a plastic bag, wrapped in a towel) over the injured area for 20 minutes every 1-2 hours the first day for pain relief. Continue this 3-4 times a day until the pain and swelling goes away. 3) Keep the cast/splint completely dry at all times. Bathe with your cast/splint out of the water, protected with a large plastic bag, rubber-banded at the top end. If a fiberglass cast/splint gets wet, you can dry it with a hair-dryer. 4) If skyler tape was applied and it becomes wet or dirty, change it. You may replace it with paper, plastic or cloth tape. Cloth tape and paper tapes must be kept dry. Keep the skyler tape in place for at least four weeks. 5) You may use acetaminophen (Tylenol) or ibuprofen (Motrin, Advil) to control pain, unless another pain medicine was prescribed. [ NOTE : If you have chronic liver or kidney disease or ever had a stomach ulcer or GI bleeding, talk with your doctor before using these medicines.] Follow Up with your doctor within one week, or as advised by our staff, to be sure the bone is healing properly, . [NOTE: A radiologist will review any X-rays that were taken. We will notify you of any new findings that may affect your care.] Get Prompt Medical Attention if any of the following occur: -- The plaster cast or splint becomes wet or soft -- The fiberglass cast or splint remains wet for more than 24 hours -- Pain or swelling increases -- Redness, warmth, swelling, drainage from the wound or foul odor from a cast or splint -- Finger becomes more cold, blue, numb or tingly ?? [phone] [employer] [facility], [address] [place] [address], [place] [address]. All rights reserved. This information is not intended as a substitute for professional medical care. Always follow your healthcare professional's instructions. R.I.C.E. R.I.C.E. stands for Rest, Ice, Compression, and Elevation. Doing these things helps limit pain and swelling after an injury. R.I.C.E. also helps injuries heal faster. Use R.I.C.E. for sprains, strains,and severe bruises or bumps. Follow the tips on this handout and begin R.I.C.E. as soon as possible after an injury. Rest Pain is your bodys way of telling you to rest an injured area. Whether you have hurt an elbow, hand,foot, or knee, limiting its use will prevent further injury and help you heal. Ice Applying ice right after an injury helps prevent swelling and reduce pain. Dont place ice directly on your skin. ?? Wrap a cold pack or bag of ice in a thin cloth. Place it over the injured area. ?? Ice for 10 minutes every 3 hours. Dont ice for more than 20 minutes at a time. Compression Putting pressure (compression) on an injury helps prevent swelling and provides support. ?? Wrap the injured area firmly with an elastic bandage. If your hand or foot tingles, becomes discolored, or feels cold to the touch, the bandage may be too tight. Rewrap it more loosely. ?? If your bandage becomes too loose, rewrap it. ?? Do not wear an elastic bandage overnight. Elevation Keeping an injury elevated helps reduce swelling, pain, and throbbing. Elevation is most effective when the injury is kept elevated higher than the heart. Call your health care provider if you notice any of the following: Fingers or toes feel numb, are cold to the touch, or change color Skin looks shiny or tight Pain, swelling, or bruising worsens and isnot improved with elevation ?? [phone] [employer], [address] [place] [address], [place] [address]. All rights reserved. This information is not intended as a substitute for professional medical care. Always follow your healthcare professional's instructions. Consider Using Patient Online Services Patient Online [...] if you dont have one. Go to [email or web address] and click on Create Your Account. Then, follow the directions to complete the online form. Youll be asked for your [facility] number which you can find at the top of this document. ED Tests and Procedures: 0Order Status XR Chest 2 Views Completed XR Finger or Fingers Left Completed Discharge Prescriptions & Home Medications: Medication/Strength Dose Route Frequency Indications/Special Instructions/Comments/Notes *mupirocin topical (mupirocin 2% topical ointment) 1 elliott Topical three times a day * You have let us know that you are not taking this medication as listed. Please talk with your primary care provider or the health care provider who prescribed the medication as soon as possible. Comment: Attention: If you have any medications at home not on this list, DO NOT take them until you contact your provider for clarification. Give a copy of your medication list to your primary care provider. Update your medication list any time medications or doses are changed and carry your medication list at all times in case of emergency. IMPORTANT: We examined and treated you today on an emergency basis only. This was not a substitute for, or an effort to provide, complete medical care. In most cases, you must let your doctor check youagain. Tell your doctor about any new or lasting problems. We cannot recognize and treat all injuries or illnesses in one Emergency Department visit. If you had special tests, such as EKG's or X- rays, we will review them again within 24 hours. We will call you if there are any new suggestions. Please follow the instructions above carefully. If you are being transferred to another facility your followup plan of care will be determined by the receiving facility. If you are a patient that is being discharged from the Emergency Department after receiving narcotics or other medications that may impair your judgment you may be a risk to yourself or others if you operate a motor vehicle. We recommend that you arrange a ride home with a responsible alliance party. BRENDAN Dean DOMINICK BRUCE , or responsible alliance party have received this information and my questions have been answered. I have discussed any challenges I see with this plan with the nurse or physician. Patient Signature or Responsible Alliance Party/Relationship Date Time Provider Signature Date Time IMPORTANT: We examined and treated you today on an emergency basis only. This was not a substitute for, or an effort to provide, complete medical care. In most cases, you must let your doctor check youagain. Tell your doctor about any new or lasting problems. We cannot recognize and treat all injuries or illnesses in one Emergency Department visit. If you had special tests, such as EKG's or X- rays, we will review them again within 24 hours. We will call you if there are any new suggestions. Please follow the instructions above carefully. If you are being transferred to another facility your followup plan of care will be determined by the receiving facility. If you are a patient that is being discharged from the Emergency Department after receiving narcotics or other medications that may impair your judgment you may be a risk to yourself or others if you operate a motor vehicle. We recommend that you arrange a ride home with a responsible alliance party. BRENDAN Dean DOMINICK BRUCE , or responsible alliance party have received this information and my questions have been answered. I have discussed any challenges I see with this plan with the nurse or physician. Patient Signature or Responsible Alliance Party/Relationship Date Time Provider Signature Date Time This document has images extracted. Please consider using [employer] for all your patient education needs. Source: [employer] Document Id: [id number] Jose Dorman R.N. - 05/04/2017 9:49 PM CDT ED Depart Summary [facility] Emergency Department Clinical Discharge Summary PERSON INFORMATION Name OVIDIO CARDONA Age 16 Years 2000 12:00 AM Sex Male Language Burundian PCP DEMI HONG MD Marital Status Single N [id number] Visit Id Visit Reason Trauma - minor; chest and finger injuries Specialty Enc Type Emergency Med Service Emergency Medicine Referred by Track Group [facility] ED Discharge 05/04/2017 9:48 PM Tracking Id [id number] Checkout 05/04/2017 9:48 PM Checkin 05/04/2017 8:46 PM Acuity 4 -Less Urgent Dispo Type * Discharged to Home or Self Care Arrival 05/04/2017 8:46 PM Reg Status Complete LOS 000 01:02 Address: [address] [place] [phone] Comment: PROVIDER INFORMATION Provider Role Provider Contact Time LACY FRANK PA-C ED Provider 05/04/17 20:53 JOSE DORMAN [employer] Nurse 05/04/17 20:56 DIAGNOSIS Fracture Finger Closed Initial; Pain Chest Wall (CWP) Comment: PATIENT EDUCATION INFORMATION Instructions: FRACTURE, Finger [Closed]; R.I.C.E. Follow up: Source: [employer] Document Id: [id number] Jose Dorman R.N. - 05/04/2017 9:39 PM CDT ED Disposition Summary ED Disposition Summary Entered On: 05/04/2017 21:40 CDT Performed On: 05/04/2017 21:39 CDT by JOSE DORMAN [employer] Disposition Summary Present in Room During Exam/Procedure : Father Mode of Discharge : Ambulatory Transportation : Private vehicle Discharge From ED With : Home Med List Printed Discharge Instructions Given to Patient : No Reason Discharge Instructions Not Given : given to father Patient Status at Discharge from ED : Improved 30 Minutes Critical Care : No JOSE DORMAN RN - 05/04/2017 21:39 CDT Source: [employer] Document Id: [id number] CDT!10 documented in this encounter ED Notes Lacy Frank - 05/04/2017 9:41 PM CDT Trauma - minor Patient: OVIDIO CARDONA Age: 16 years Sex: Male : 2000 Author: LACY FRANK PA-C Attachments: None Associated Diagnosis: Fracture Finger Closed Initial; Pain Chest Wall (CWP) Basic Information Time seen: Date & time 05/04/2017 20:55:00. Additional information: Chief Complaint from Nursing Triage Note : Chief Complaint Description 05/04/2017 20:50 CDT Chief Complaint Description Pt c/o chest pain from taking a football helmet to the chest at 2000 today. . History of Present Illness 16-year-old male presents to the ER with complaints of chest pain after patient was struck in the chest while playing football. He states he was struck by an opponent helmet in the center of his shoulder pads. Patient denies shortness of breath or difficulty catching his breath. Pain has improved since the time the incident. Pain is made worse by palpation of the chest wall and is made better with rest. Review of Systems Constitutional symptoms: No fever. Skin symptoms: No rash. Eye symptoms: Vision unchanged. ENMT symptoms: No sore throat. Respiratory symptoms: No shortness of breath or no cough. Cardiovascular symptoms: Chest pain, but no palpitations, no tachycardia, no syncope, no diaphoresisor no peripheral edema. Gastrointestinal symptoms: No abdominal pain, no nausea, no vomiting or no diarrhea. Genitourinary symptoms: No dysuria. Musculoskeletal symptoms: No back pain. Neurologic symptoms: No headache or no dizziness. Additional review of systems information: All other systems reviewed and otherwise negative. Health Status Allergies: Nonallergic Reactions (Selected) No Known Medication Allergies. Past Medical/ Family/ Social History Surgical history: HC CIRCUMCISION CLAMP/DEVICE - 02 on 2002 at 2 Days. None ([id number]).. Family history: . Physical Examination Vital Signs: Vital Signs 05/04/2017 20:50 CDT Temperature Core 36.9 DegC Peripheral Pulse Rate 68 /min Respiratory Rate 18 /min SpO2 95 % Systolic Blood Pressure 131 mmHg Diastolic Blood Pressure 72 mmHg Mean Arterial Pressure 92 mmHg , Measurements 05/04/2017 20:50 CDT Dosing Weight 60.00 kg Actual Weight 60 kg , SpO2 05/04/2017 20:50 CDT SpO2 95 % . General: Alert and no acute distress. Skin: Warm and no rash. Head: Normocephalic and atraumatic. Neck: No JVD. Ears, nose, mouth and throat: Oral mucosa moist and no pharyngeal erythema or exudate. Cardiovascular: Regular rate and rhythm, No murmur and No edema. Respiratory: Lungs are clear to auscultation, respirations are non-labored, breath sounds are equal and Symmetrical chest wall expansion. Chest wall: and On exam: Tenderness, reproduces complaint, no ecchymosis, no crepitus, no subcutaneous emphysema, no deformity, no palpable rib fracture(s), no paradoxical motion, no surgical scar(s). Musculoskeletal: Tenderness to palpation over left distal middle finger. Neurovascularly intact distal to injury. Gastrointestinal: Soft, Nontender and Normal bowel sounds. Neurological: Alert and oriented to person, place, time, and situation. Psychiatric: Cooperative and appropriate mood & affect. Medical Decision Making Trauma team: no trauma criteria met Differential Diagnosis:Contusion, fracture. Rationale:Patient appears well. Left middle finger splinted. Patient will follow up with Orthopedicswithin 48 hours for examination. Return ER warnings were given. Patient is discharged in good condition.. Chest X-Ray:negative chest. Radiology results: Reason For Exam L middle finger pain Report 04-May-2017 21:21:00 Exam: L Fingers 3vw PA/Lat/Obl Indications: L middle finger pain 04-May-2017 21:40 CA EXAM: Left Fingers 3vw PA/Lat/Obl: IMPRESSION: Acute, mildly displaced Salter Mendez IV fracture of the distal phalanx of the left 3rd finger. There is mild dorsal displacement of the fracture fragment. Mild soft tissue swelling over the dorsal aspect of the distal left 3rd finger. No dislocation identified. No other fracture identified. Mihai Castanon MD PhD [phone] 04-May-2017 21:40 . Impression and Plan Diagnosis Fracture Finger Closed Initial (Discharge, Medical) Pain Chest Wall (CWP) (Discharge, Medical) Plan Condition: Improved. Disposition: Discharged: to home. Prescriptions: Prescription Inspector Fuel Hose Patient Care: Discharge ED Patient (Order Processing): 05/04/2017 21:42 CDT. Patient was given the following educational materials: R.I.C.E., FRACTURE, Finger [Closed]. Follow up with: In: 2 day(s), Orthopedics. Counseled: Patient, Family. Electronically Signed By: LACY FRANK PA-C On: 05/05/2017 01:51 AM Modified by and Electronically Signed by: LACY FRANK PA-C On: 05/05/2017 01:51 AM This document has images extracted. Source: [employer] Document Id: {[id number]} Jose Dorman, RShondaN. - 05/04/2017 9:40 PM CDT ED Pain Assessment ED Pain Assessment Entered On: 05/04/2017 21:40 CDT Performed On: 05/04/2017 21:40 CDT by JOSE DORMAN RN Pain Assessment Pain Symptoms : Yes JOSE DORMAN RN - 05/04/2017 21:40 CDT [facility] Document Id: [id number] CDT!3 Jose Dorman R.N. - 05/04/2017 8:50 PM CDT ED Primary Assessment Document Has Been Updated ED Primary Assessment Entered On: 05/04/2017 20:56 CDT Performed On: 05/04/2017 20:50 CDT by JOSE DORMAN RN Reason For Visit (As Of: 05/04/2017 21:03:55 CDT) Problems(Active) None (SNOMED CT :863077944 ) Name of Problem: None ; Onset Date: 05/31/2013 ; Recorder: YODIT HOBSON LPN; Confirmation: Confirmed ; Classification: Medical ; Code: [id number] ; Contributor System: [employer] ; Last Updated: 01/23/2014 10:49 CDT ; Life Cycle Date: 05/31/2013 ; Life Cycle Status: Active ; Responsible Provider: YODIT HOBSON LPN; Vocabulary: SNOMED CT Pes Planus NOS (ICD-9-CM :734 ) Name of Problem: Pes Planus NOS ; Recorder: KARIE CARLOS MD; Confirmation: Confirmed ; Classification: Medical ; Code: 734 ; Contributor System: [employer] ; LastUpdated: 03/08/2015 17:58 CDT ; Life Cycle Status: Active ; Responsible Provider: KARIE CARLOS MD; Vocabulary: ICD-9-CM Diagnoses(Active) Trauma - minor Date: 05/04/2017 ; Diagnosis Type: Reason For Visit ; Confirmation: Complaint of ; Clinical Dx: Trauma - minor ; Classification: Medical ; Clinical Service: Emergency medicine ; Code: PNED ; Probability: 0 ; Diagnosis Code: [id number] Triage Chief Complaint Description : Pt c/o chest pain from taking a football helmet to the chest at 2000 today. Information Given By : Patient Present in Room During Exam/Procedure : Father Mode of Arrival ED : Private vehicle Track : Trauma Other Languages : Burundian Patient Informed of Triage Location : Emergency department Vital Signs Assessed : Yes GCS Assessed : Yes Treatments Prior to Arrival : None Is Patient Female and 13-50 no hysterectomy : No JOSE DORMAN - 05/04/2017 20:53 CDT Vital Signs Actual Weight : 60 kg Actual Weight Conversion to Pounds : 132 lb JOSE DORMAN 05/04/2017 21:03 CDT Temperature Core : 36.9 DegC(Converted to: 98.4 DegF) Peripheral Pulse Rate : 68 /min Respiratory Rate : 18 /min Systolic Blood Pressure : 131 mmHg Diastolic Blood Pressure : 72 mmHg NIBP Mean : 92 mmHg SpO2 : 95 % Oxygen Therapy : Room air JOSE DORMAN - 05/04/2017 20:53 CDT Dinorah Coma Eye Opening Response Pacolet : Spontaneously Best Verbal Response Pacolet : Oriented Best Motor Response Dinorah : Obeys simple commands Pacolet Coma Score : 15 JOSE DORMAN 05/04/2017 20:53 CDT Pain Assessment Pain Symptoms : Yes JOSE DORMAN 05/04/2017 20:53 CDT Pain Scale Pain Scale Verbal 0-10 : Open JOSE DORMAN 05/04/2017 20:53 CDT Pain Pain Assessment Grid Pain 1 Location : Chest Intensity : 3 JOSE DORMAN - 05/04/2017 20:53 CDT Comfort Measures Comfort Measures Grid Positioning : Yes JOSE DORMAN 05/04/2017 20:53 CDT ED Physician Notification Time ED Physician Notification Time : 05/04/2017 20:53 CDT JOSE DORMAN - 05/04/2017 20:53 CDT CARRINGTON CARRINGTON Level 1 : No CARRINGTON Level 2 : No CARRINGTON Level 3 : One JOSE DORMAN RN - 05/04/2017 20:53 CDT DCP GENERIC CODE Tracking Group : [facility] ED Tracking Acuity : 4 -Less Urgent JOSE DORMAN - 05/04/2017 20:53 CDT Allergy (As Of: 05/04/2017 20:56:37 CDT) Allergies (Active) No Known Medication Allergies Comments: Comment 1: NO KNOWN DRUG ALLERGIES ; Created By: Contributor_system, [facility]_HX_ALRG_SYS; Reaction Status: Active ; Category: Drug ; Substance: No Known Medication Allergies ; Type: Unknown ; Updated By: Contributor_system, [facility]_HX_ALRG_SYS; Reviewed Date: 05/04/2017 20:55 CDT ID Screen Drug Resistant Organism : No Travel Within Last 21 Days : No Contact with someone with Ebola : No JOSE DORMAN RN - 05/04/2017 20:53 CDT Immunizations Immunizations Current : Yes JOSE DORMAN RN - 05/04/2017 20:53 CDT Respiratory Airway : Patent Respirations : Unlabored Respiratory Pattern : Regular Oxygen Therapy : Room air JOSE DORMAN RN - 05/04/2017 20:53 CDT Cardiovascular Heart Rhythm : Regular Skin Color : Normal for ethnicity Skin Description : Dry Skin Temperature : Warm JOSE DORMAN RN - 05/04/2017 20:53 CDT Neurological Last Well Time Known : Not applicable Level of Consciousness : Alert Orientation : Appropriate for age Characteristics of Speech : Appropriate for age Neuro Patient Stated Symptoms : None Gait : Steady Swallowing Difficulty/Aspiration Risk : None JOSE DORMAN RN - 05/04/2017 20:53 CDT ED Psychosocial Affect/Behavior : Calm, Cooperative, Appropriate Domestic Abuse Concerns : None Behavioral Health Screen/Safety Assmt : No JOSE DORMAN RN - 05/04/2017 20:53 CDT Gastrointestinal Nutrition ED : Adequate JOSE DORMAN RN - 05/04/2017 20:53 CDT Musculoskeletal Fall Prevention Education Provided : JOSE GOVEA RN - 05/04/2017 20:53 CDT Social Habits Exposure to Tobacco Smoke : Care provider denies smoking in home Smoking Status : Never smoker Tobacco 2A : Unknown Tobacco Use/Currently Using : No Tobacco Use/Last 30 Days : No Tobacco Use/Last 12 months : No JOSE DORMAN RN - 05/04/2017 20:53 CDT Recreational Drug Use Grid Drug Use : None JOSE DORMAN RN - 05/04/2017 20:53 CDT [facility] Document Id: [id number] CDT!4 documented in this encounter Miscellaneous Notes Miscellaneous - Conversion, Historical Provider Ser - 05/04/2017 9:48 PM CDT Coding Summary-Paper Based CODING DATE: 05/12/2017 FINAL CA [facility] STATUS: * Discharged to Home or Self Care PAYOR: [employer] ADMIT DX: R07.89 Other chest pain REASON FOR VISIT DX: R07.89 Other chest pain FINAL DX: PRINCIPAL: S62.633A Displaced fracture of distal phalanx of left middle finger, initial encounter for closed fracture SECONDARY: W22.8XXA Striking against or struck by other objects, initial encounter Y93.61 Activity, malagasy tackle football Y92.[address] the place of occurrence of the external cause PROCEDURES DOCTOR NAME DATE NOTE: The code number assigned matches the documented diagnosis and / or procedure in the patient's chart. However, the narrative phrase printed from the coding software may appear abbreviated, or result in slightly different terminology. Coded By: ANJU AYOUB Date Saved: 05/12/2017 10:08 am Source: [employer] Document Id: [id number] Sarah - Jose Domran RShondaN. - 05/04/2017 9:40 PM CDT Valuables/Belongings Valuables/Belongings Entered On: 05/04/2017 21:40 CDT Performed On: 05/04/2017 21:40 CDT by JOSE DORMAN RN Valuables/Belongings Belongings Sent Home With : pt and family Home Medication Disposition : None brought in with patient JOSE DORMAN RN - 05/04/2017 21:40 CDT Source: [employer] Document Id: [id number] CDT!4 Sarah - Jose Dorman R.N. - 05/04/2017 8:46 PM CDT Facility Charge Ticket 2.0 11.0 DX Facility Charge Ticket 2.0 11.0 DX Entered On: 05/04/2017 21:40 CDT Performed On: 05/04/2017 20:46 CDT by JOSE DORMAN RN Facility Charge Ticket 2.0 11.0 DX ED Other Charges : Standard ED Encounter TVL Level Translated RTF : Trauma - minor TVL:4 TVL Level for Facility Charge Ticket : Level 4 Arrival Mode Calc : 1 Mode of Arrival ED : Private vehicle [place] Mode of Arrival Interpreted : Standard [facility] Process Management : None Order Management RTF : Xray CXR 2 Views,05/04/17 20:58,LACY FRANK PA-C Completed XR Finger or Fingers Left,05/04/17 20:58,LACY FRANK PA-C Completed [facility] Order Management : Xray - plain films 30 Minutes Critical Care : No Nursing Notes RTF : Nursing Notes ED Primary Assessment,05/04/17 20:50,JOSE DORMAN [employer] Pain Assessment,05/04/17 21:40,JOSE DORAMN RN [facility] Nursing Assessment : Triage and 1-2 nursing assessments [facility] Disposition : Discharge [facility] Total Points with Diagnosis Control : 8 [facility] Visit Level : 79372 Level 4 Treatments Prior to Arrival : None JOSE DORMAN RN - 05/04/2017 21:40 CDT Source: [employer] Document Id: [id number] documented in this encounter Plan of Treatment Not on filedocumented as of this encounter Visit Diagnoses Not on filedocumented in this encounter Care Teams Government Auditor Relationship Specialty Start Date End Date Demi Hong M.D. PCP - General 01/29/[address] [place] [id number] documented as of this encounter
--- OUTSIDE RECORDS SUMMARY | 2022-05-19 19:43 | XMS_ITS | Encounter Summary ---
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 PROCEDURE/MINOR SURGICAL O RDERABLES ECG 12 Lead (08/08/2020 3:59 PM BASKET PERSON) P athologist Signature Ventricular Rate 57 BPM MUSE ECG/Min CT Interval 138 ms MUSE QRSD Interval 84 ms MUSE QT Interval 384 ms MUSE QTC Interval 373 ms MUSE P Gary -15 degrees MUSE R Gary 64 degrees MUSE T Wave Gary 37 degrees MUSE Specimen Anatomical Collection Method Collection Time Receive d Time (Source) Location / / Volume Laterality 08/08/2020 3:59 PM 0 4:33 BASKET PERSON PM BASKET PERSON Impressions MUSE - 08/08/2020 4:02 PM BASKET PERSON Sinus bradycardia Otherwise normal ECG No previous ECGs available Narrative This result has an attachment that is no t available. Procedure Note Rivas Berrios M.D. / Noble Vieira M.D. - 08/08/2020 IMPRESSION: Sinus bradycardia Otherwise normal ECG No previous ECGs available Teto Fernandez APRN, C.N.P. ECG ORDERABLES Performing Organization Address City/State/ZIP Code Phon e Number MUSE MUSE NA APTT (Activated Partial Thromboplastin Time) (08/08/2020 3:57 PM BASKET PERSON) P athologist Signature Activated 29 25 - 37 sec 08/08/2020 CNFL Partial 4:08 PM BASKET PERSON Thrombopl Time, P Specimen Anatomical Collection Method Collection Time Receive d Time (Source) Location / / Volume Laterality Blood (Blood, 08/08/2020 3:57 PM 08/08/20 3:57 Venous) BASKET PERSON PM BASKET PERSON Lebron Mcmillan APRNN.P. LAB BLOOD ADD-ON Performing Organization Address City/[facility] Phon e Number [address] [id number] [place] [address] System [address] (ABNORMAL) Prothrombin Time (PT) (08/08/2020 3:57 PM BASKET PERSON) [facility] Method Time Signature Prothrombin 13.0 (H) 9.4 - 12.5 08/08/2020 CNFL Time, P sec 4:05 PM BASKET PERSON INR 1.2 0.9 - 1.1 08/08/2020 CNFL 4:05 PM BASKET PERSON Comment: ----ADDITIONAL INFORMATION---- Standard intensity warfarin therapeutic range: 2.0 to 3.0 ?? High intensity warfarin therapeutic rang e: 2.5 to 3.5 Specimen Anatomical Collection Method Collection Time Receive d Time (Source) Location / / Volume Laterality Blood (Blood, 08/08/2020 3:57 PM 08/08/20 3:57 Venous) BASKET PERSON PM BASKET PERSON Teto Fernandez APRN, [place].N.P. LAB BLOOD ADD-ON Performing Organization Address City/[facility] Phon e Number [facility]- [address] [place] [phone] [place] [address] System in [address] (ABNORMAL) CBC with Differential, Blood (08/08/2020 3:57 PM BASKET PERSON) [facility] Method Time Signature Hemoglobin 14.7 13.3 - 08/08/2020 CNFL 16.9 g/dL 4:04 PM BASKET PERSON Hematocrit 43.3 40.0 - 08/08/2020 CNFL 50.0 % 4:04 PM BASKET PERSON Erythrocytes 4.84 4.30 - 08/08/2020 CNFL 5.70 4:04 PM BASKET PERSON x10(12)/L MCV 89.5 82.5 - 08/08/2020 CNFL 98.0 fL 4:04 PM BASKET PERSON RBC Distrib Width 11.7 11.4 - 08/08/2020 CNFL 13.5 % 4:04 PM BASKET PERSON Platelet Count 279 139 - 320 08/08/2020 CNFL x10(9)/L 4:04 PM BASKET PERSON Leukocytes 8.1 3.8 - 08/08/2020 CNFL 10.4 4:04 PM BASKET PERSON x10(9)/L Neutrophils 5.40 1.80 - 08/08/2020 CNFL 7.20 4:04 PM BASKET PERSON x10(9)/L Lymphocytes 2.06 1.00 - 08/08/2020 CNFL 3.20 4:04 PM BASKET PERSON x10(9)/L Monocytes 0.50 0.20 - 08/08/2020 CNFL 0.80 4:04 PM BASKET PERSON x10(9)/L Eosinophils 0.07 (L) 0.10 - 08/08/2020 CNFL 0.20 4:04 PM BASKET PERSON x10(9)/L Basophils 0.03 0.00 - 08/08/2020 CNFL 0.10 4:04 PM BASKET PERSON x10(9)/L Specimen Anatomical Collection Method Collection Time Receive d Time (Source) Location / / Volume Laterality Blood (Blood, 08/08/2020 3:57 PM 08/08/20 20 3:57 Venous) BASKET PERSON PM BASKET PERSON Teto Fernandez APRN, C.N.P. LAB BLOOD ADD-ON Performing Organization Address City/State/ZIP Code Phon e Number [facility]- [address] [place] [phone] [place] [address] System in [address] Ethanol Level, Serum (08/08/2020 3:57 PM BASKET PERSON) P athologist Signature Ethanol, P <10 <10 mg/dL 08/08/2020 4:36 CNFL PM BASKET PERSON Specimen Anatomical Collection Method Collection Time Receive d Time (Source) Location / / Volume Laterality Blood (Blood, 08/08/2020 3:57 PM 08/08/20 3:57 Venous) BASKET PERSON PM BASKET PERSON Teto Fernandez APRN, C.N.P. LAB BLOOD NON ADD-ON Performing Organization Address City/State/ZIP Code Phon e Number [facility]- [address] [place] [address] [place] [address] System [address] (ABNORMAL) Basic Metabolic Panel (08/08/2020 3:57 PM BASKET PERSON) P athologist Signature Potassium, P 3.7 3.6 - 5.2 08/08/2020 CNFL mmol/L 4:36 PM BASKET PERSON Sodium, P 138 135 - 145 08/08/2020 CNFL mmol/L 4:36 PM BASKET PERSON Chloride, P 103 102 - 112 08/08/2020 CNFL mmol/L 4:36 PM BASKET PERSON Bicarbonate, P 23 21 - 29 08/08/2020 CNFL mmol/L 4:36 PM BASKET PERSON Anion Gap, P 12 7 - 15 08/08/2020 CNFL 4:36 PM BASKET PERSON BUN (Blood Urea 15 7 - 20 08/08/2020 CNFL Nitrogen), P mg/dL 4:36 PM BASKET PERSON Creatinine 1.11 0.74 - 08/08/2020 CNFL 1.35 mg/dL 4:36 PM BASKET PERSON Calcium, Total, 9.5 9.3 - 10.6 08/08/2020 CNFL P mg/dL 4:36 PM BASKET PERSON Glucose, P 141 (H) 70 - 140 08/08/2020 CNFL mg/dL 4:36 PM BASKET PERSON Specimen Anatomical Collection Method Collection Time Receive d Time (Source) Location / / Volume Laterality Blood (Blood, 08/08/2020 3:57 PM 08/08/20 3:57 Venous) BASKET PERSON PM BASKET PERSON Teto Fernandez APRN, [place].N.P. LAB BLOOD ADD-ON Performing Organization Address City/State/ZIP Code Phon e Number [facility]- [address] [place] [address] [place] [address] [address] AST (Aspartate Aminotransferase) (08/08/2020 3:57 PM BASKET PERSON) Patholo gist Method Time Signature Aspartate 24 8 - 48 08/08/2020 CNFL Aminotransferase U/L 4:36 PM BASKET PERSON (AST), P Specimen Anatomical Collection Method Collection Time Receive d Time (Source) Location / / Volume Laterality Blood (Blood, 08/08/2020 3:57 PM 08/08/20 3:57 Venous) BASKET PERSON PM BASKET PERSON [place] Mcmillan APRN.N.P. LAB BLOOD ADD-ON Performing Organization Address [facility] Phon e Number [address] [address] [place] [address] System [address] Amylase, Total (08/08/2020 3:57 PM BASKET PERSON) P athologist Signature Amylase, Total, 55 21 - 110 08/08/2020 CNFL P U/L 4:36 PM BASKET PERSON Specimen Anatomical Collection Method Collection Time Receive d Time (Source) Location / / Volume Laterality Blood (Blood, 08/08/2020 3:57 PM 08/08/20 3:57 Venous) BASKET PERSON PM BASKET PERSON Teto Fernandez APRN, [place].N.P. LAB BLOOD ADD-ON Performing Organization Address [facility] Phon e Number [address] [address] [place] [address] documented in this encounter Visit Diagnoses Diagnosis Abrasion Face Initial - Primary Laceration Head Initial Concussion No Loss Of Consciousness Init ial documented in this encounter Administered Medications Inactive Administered Medications - up to 3 most recent administrations Medication Order MAR Action Action Date Dose Rate Site iohexoL (OMNIPAQUE) 300 mg iodine/mL raheem ution - ADS Override Pull Starting on Thu08/08/20 at 1558, For 1 dose, Created by erum override iohexoL 300 mg iodine/mL solution 99 mL Given 08/08/2020 4:30 PM BASKET PERSON 99 mL (OMNIPAQUE) 99 mL, intravenous, Once in imaging, contrast, Starting on Thu08/08/20 at 1555, For 1 dose, If administered oral then dilute in 900 mL water NaCl 0.9 % bolus 75 mL New Bag 08/08/2020 4:31 PM BASKET PERSON 75 mL 75 mL/hr 75 mL, intravenous, at 75 mL/hr, Administer over 1 Hours, Once, On Thu08/08/20 at 1556, For 1 dose sodium chloride 0.9 % injection 10 mL Given 08/08/2020 4:32 PM BASKET PERSON 10 mL 10 mL, intravenous, Once, On Thu08/08/20 at 1556, For 1 dose documented in this encounter Active and Recently Administered Medications Times are shown in BASKET PERSON. Scheduled Medication Order 08/06/2020 08/07/2020 08/08/2020 NaCl 0.9 % bolus 75 mL 1631 (New Bag - Provider: Blaise Capma(Soni)(CT), R.TShonda(R))1731 (Due: Stopped - Provider: Blaise Campa(Soni)(CT), R.T.(R)) 75 mL, intravenous, at 75 mL/hr, Adminis ter over 1 Hours, Once, On Thu08/08/20 at 1556, For 1 dose sodium chloride 0.9 % injection 10 mL (COMPLETED) 1632 (Given - Provider: Blaise Campa(R)(CT), R.TShonda(R)) 10 mL, intravenous, Once, On Thu08/08/20 at 1556, For 1 dose PRN Medication Order 08/06/2020 08/07/2020 08/08/2020 iohexoL 300 mg iodine/mL solution 99 mL (OMNIPAQUE) (COMPLETED) 1630 (Given - Provider: Blaise Campa(Soni)(CT), R.T.(R) - Comment: [id number]) 99 mL, intravenous, Once in imaging, con trast, Starting on Thu08/08/20 at 1555, For 1 dose, If administered oral then dilute in 900 mL water documented in this encounter Care Teams Surgical Rn Relationship Specialty Start Date End Date Harjeet Holly M.D. PCP - General 01/29/[id number] [phone] documented as of this encounter
--- OUTSIDE RECORDS SUMMARY | 2022-05-19 19:43 | XMS_ITS | Encounter Summary ---
:2000 Author Organization [facility] Address [address] [place] [address] Care Team Providers Name Role Phone Harjeet Holly M.D. 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 Injury Eye Superficial Initial Left; [address] [place] [address] Pain Eye Bilateral JENNIFER NIELSEN [place] [phone] (Wo rk) Social History Tobacco Use Types Packs/Day Years Used Date Smoking Tobacco: Never Smokeless Tobacco: Never Sex Assigned at Date Recorded Not on file documented as of this encounter Last Filed Vital Signs Vital Sign Reading Time Taken Comments Blood Pressure 126/64 10/09/2020 6:33 PM ELEMENTARY SECRETARY Pulse 68 10/09/2020 6:33 PM ELEMENTARY SECRETARY Temperature 36.5 ??C (97.7 ??F) 10/09/2020 6:33 PM ELEMENTARY SECRETARY Respiratory Rate 16 10/09/2020 6:33 PM ELEMENTARY SECRETARY Oxygen Saturation 99% 10/09/2020 6:33 PM ELEMENTARY SECRETARY Inhaled Oxygen Concentration - - Weight 68.9 kg (151 lb 14.4 oz) 10/09/2020 5:06 PM ELEMENTARY SECRETARY Height 180.3 cm (5' 11) 10/09/2020 5:06 PM ELEMENTARY SECRETARY Body Mass Index 21.19 10/09/2020 5:06 PM ELEMENTARY SECRETARY Body Mass Index Percentile 40.63 % 10/09/2020 5:06 PM CS T Growth Chart: [facility] (Boys, 2-20 Years) documented in this encounter Discharge Instructions AttachmentsThe following attachments cannot be sent through Care Everywhere. Corneal Abrasion [id number] in this encounter Medications at Time of Discharge Medication Sig Dispensed Refills Start Date End Date erythromycin (ROMYCIN) 5 Apply 1 cm to both 4 g 0 10/14/2020 mg/gram (0.5 %) ophthalmic eyes every 8 ointment (eight) hours for 5 days. documented as of this encounter ED Notes David Burns III, M.D. 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 The current episode started today. The problem occurs constantly. The problem has been unchanged. The injury mechanism was a foreign body. The pain is at aseverity of 10/10. The pain is severe. There is no known exposure to pink eye. He does not wear contacts. Associated symptoms include eye redness, a foreign body sensation and photophobia. Pertinent negatives include no fever. He has tried water for the symptoms. The treatment provided no relief. REVIEW OF SYSTEMS Constitutional: Negative for chills, fatigue and fever. HENT: Negative for congestion and sore throat. Eyes: Positive for photophobia, pain and redness. Negative for kelton-orbital edema and visual disturbance. Respiratory: Negative for shortness of breath and wheezing. Cardiovascular: Negative for chest pain and palpitations. Endocrine: Negative. Skin: Negative for color change and wound. Allergic/Immunologic: Negative. OBJECTIVE Initial Vitals Temperature Pulse Rate Heart Rate Resp Rate Blood Pressure SpO2 10/09/20 1705 10/09/20 1705 -- 10/09/20 1705 10/09/20 1705 10/09/20 1705 36.7 ??C 85 (!) 24 145/83 100 % Pain Score 10/09/20 1706 10 - Worst possible pain PHYSICAL EXAMINATION Constitutional: Nursing note and vitals reviewed. HENT: Head: Normocephalic and atraumatic. Right Ear: Tympanic membrane normal. Left Ear: Tympanic membrane normal. Mouth/Throat: Oropharynx is clear and moist. Mucous membranes are moist. Eyes: EOM are normal. Pupils are equal, round, and reactive to light. Foreign body present in the right eye. Foreign body present in the left eye. Eyelid: right eye lid edema and left eye lid edema present. Right conjunctiva is injected and no chemosis. Left conjunctiva is injected and no chemosis. Periorbital area normal appearing.Slit lamp exam: The right eye shows no fluorescein uptake, no corneal flare, no corneal ulcer and no corneal abrasion. The left eye shows no fluorescein uptake, no corneal flare, no corneal ulcer and no corneal abrasion. No scleral icterus. Cardiovascular: Normal rate, regular rhythm, S1 normal, S2 normal and normal heart sounds. Pulses are strong and palpable. Capillary refill: takes less than 3 seconds, Pulmonary/Chest: Effort normal and breath sounds normal. Neurological: He is alert and oriented to person, place, and time. No cranial nerve deficit. Skin: Skin is warm, dry, intact and normal color. 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 Reportedly the protective glass broke and the patient was sprayed with sand particles. This is nothappen before. He had immediate eye pain and was brought into the emergency department. Once the patient had numbing drops placed initial exam did not show any obvious abnormalities. Floor seen did notshow any corneal abrasions or uptake. Denis lenses were placed in each eye and a L of fluid was flushed through each as well. Following this the patient had minimal to no discomfort. We did not feel that follow-up was required, however, we explained that if he was having discomfort by the morning he should consider follow-up in his local eye clinic. Additionally, the patient was provided with a prescription for erythromycin ointment. That she be placed in the eye up to 3 times daily. Reasons returnto the emergency department discussed in detail. DIFFERENTIAL DIAGNOSIS Differential diagnosis includes conjunctivitis, iritis, retinal detachment, vitreous hemorrhage, vitreous detachment, orbital fracture, kelton-orbital cellulitis, orbital cellulitis, corneal abrasion, corneal foreign body, hordeolum, hyphema, uveitis, blepharitis, glaucoma, keratitis, optic neuritis, retinopathy, scleritis, and dacryocystitis. I reviewed previous medical records including documentation from previous visits. Final Diagnoses: as of Oct 11 1853 Injury Eye Superficial Initial Right Injury Eye Superficial Initial Left Pain Eye Bilateral David Burns III, M.D. 10/11/201858 ENTARY SECRETARY Fernando Sheehan R.N. - 10/09/2020 5:14 PM CST 19 year old male presents to the ED accompanied with his father with bilateral eye pain/injury. 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 Patient attempted to irrigate but was not able to due to the pain. Injury was just prior to arrival. Fernando Sheehan R.N. 10/09/201718 ENTARY SECRETARY documented in this encounter Plan of Treatment Not on filedocumented as of this encounter Visit Diagnoses Diagnosis Injury Eye Superficial Initial Right - P rimary Injury Eye Superficial Initial Left Pain Eye Bilateral documented in this encounter Administered Medications Inactive Administered Medications - up to 3 most recent administrations Medication Order MAR Action Action Date Dose Rate Site fluorescein sodium 1 mg Given 10/09/2020 5:17 PM ELEMENTARY SECRETARY 1 strip ophthalmic strip 1 strip (FUL-DORIS) 1 strip, both eyes, Once, On Thu10/09/20 at 1718, For 1 dose, To bedside for presriber administration. NaCl 0.9 % irrigation solution 2,000 mL Given 10/09/2020 5:44 PM ELEMENTARY SECRETARY 2,000 mL 2,000 mL, irrigation, Once, On Thu10/09/20 at 1740, For 1 dose, Irrigation for affected eye proparacaine (ALCAINE) 0.5 % ophthalmic solution - Given 10/09/2020 5:13 PM ELEMENTARY SECRETARY ADS Override Pull Starting on 10/09/20 at 1707, For 1 dose, Created by cabinet override documented in this encounter Active and Recently Administered Medications Times are shown in ELEMENTARY SECRETARY. Scheduled Medication Order 10/07/2020 10/08/2020 10/09/2020 fluorescein sodium 1 mg ophthalmic strip 1 strip (FUL-DORIS) (COMP LETED) 1717 (Given - Provider: Fernando Sheehan R.N. - Comment: administered by ) 1 strip, both eyes, Once, 10/09/20 at 1718, For 1 dose, To bedside for presriber administration. NaCl 0.9 % irrigation solution 2,000 mL (COMPLETED) 1744 (Given - Provider: Fernando Sheehan R.N. - Comment: 1 L each eye) 2,000 mL, irrigation, Once, 10/09/20 at 1740, For 1 dose, Irrigation for affected eye No Frequency Medication Order 10/07/2020 10/08/2020 10/09/2020 proparacaine (ALCAINE) 0.5 % ophthalmic solution - ADS Override Pull (COMPLETED) 1713 (Given - Provid er: Fernando Sheehan R.N. - Comment: administered by ) Starting Thu10/09/20 at 1707, For 1 dose, Created by [email or web address] ove rride documented in this encounter Care Teams Track Layer Head Relationship Specialty Start Date End Date Harjeet Holly M.D. PCP - General 01/29/[address] [place] [phone] documented as of this encounter
--- OUTSIDE RECORDS SUMMARY | 2022-05-19 19:43 | XMS_ITS | Encounter Summary ---
:2002 Author Organization [facility] Address [address] [place] [address] Care Team Providers Name Role Phone Unavailable Primary Care Provider Unavailable Encounter Details Date Type Department Care Team Description 06/24/2005 Hospital Encounter HX [facility] Noble Ryan M.D. [address] [place], [place] [address] (Wo rk) Social History Tobacco Use Types Packs/Day Years Used Date Smoking Tobacco: Never Assessed Sex Assigned at Date Recorded Not on file documented as of this encounter Progress Notes Noble Ryan M.D. - 06/24/2005 10:10 AM CST [id number] SUBJECTIVE: 4 year old male brought by mother with 7 days history of nasal congestion, rhinorrhea, and cough. Temperature afebrile at home. He complained of R ear pain yesterday evening. Mom put hot oil in R canal. Presently he says the ear does not hurt. No vomiting or diarrhea. OBJECTIVE: GENERAL: Patient NAD EYES: No drainage or injection EARS: TMs carrillo and translucent bilaterally, R canal somewhat macerated appearing. NOSE: Nares normal. Septum midline. Mucosa normal. No drainage or sinus tenderness. THROAT: Clear NECK: Supple without lymphadenopathy CHEST: Lungs clear to auscultation bilaterally HEART: RR without murmur ABD: Soft SKIN: no rashes ASSESSMENT: Viral URI PLAN: per orders. Push fluids, vaporizer, tylenol at dose appropriate for age and weight, OTC decongestant suggested. See prn. Source[facility] Document Id: [id number] documented in this encounter Plan of Treatment Not on filedocumented as of this encounter Visit Diagnoses Not on filedocumented in this encounter
--- OUTSIDE RECORDS SUMMARY | 2022-05-19 19:43 | XMS_ITS | Encounter Summary ---
:2000 Author Organization [facility] Address [address] [place] [address] Care Team Providers Name Role Phone Unavailable Primary Care Provider Unavailable Encounter Details Date Type Department Care Team Description 08/29/2013 Hospital Encounter [facility] Sandra Mancia, N.P. [address] [place] [address] [phone] (Wo rk) Social History Tobacco Use Types Packs/Day Years Used Date Smoking Tobacco: Never Assessed Sex Assigned at Date Recorded Not on file documented as of this encounter Last Filed Vital Signs Vital Sign Reading Time Taken Comments Blood Pressure - - Pulse - - Temperature - - Respiratory Rate - - Oxygen Saturation - - Inhaled Oxygen Concentration - - Weight 33.4 kg (73 lb 10.1 oz) 08/29/2013 1:14 PM IMAGE PROCESSING ENGINEER Height - - Body Mass Index - - documented in this encounter Progress Notes Konstantin Mancia, N.P. - 08/29/2013 1:06 PM CST [id number] CHIEF COMPLAINT/REASON FOR VISIT Fever, sore throat. HISTORY OF PRESENT ILLNESS This is a 12-year-old male who is here today with concerns about not feeling well. His dad who is with him reports symptoms started yesterday and included a fever up to 102. This morning he woke up andstarted with a sore throat. His sister has been sick with similar symptoms as well. No vomiting, diarrhea or rash. No headache or ear pain. MEDICATIONS Medications reviewed. New prescription today for amoxicillin 400 mg/5 mL to take 9 mL twice daily for 10 days. ALLERGIES No known drug allergies. PAST MEDICAL HISTORY/SURGICAL HISTORY Past medical history reviewed and unchanged, please see electronic medical record. VITAL SIGNS Temperature 36.8, pulse 73, respirations 20, blood pressure 103/63. PHYSICAL EXAMINATION GENERAL: Nikki is alert, oriented times 3, appears in no acute distress. HEENT: Head is normocephalic, atraumatic. Bilateral TMs are shiny carrillo and intact with no erythema or effusion present. Nares are patent. Oropharynx is mildly erythematous and tonsils mildly enlarged. NECK: Neck is supple. Bilateral anterior cervical lymphadenopathy. HEART: Heart rate is regular and S1, S2 is present. No murmur or rub. LUNGS: Clear to auscultation. LABORATORY: Rapid strep is positive. IMPRESSION/REPORT/PLAN Strep throat. PLAN: Reviewed the diagnostic findings with Nikki and his father. At this time, we will go ahead and treat with amoxicillin 400 mg/5 mL to take 9 mL twice daily for 10 days. Fluids and rest are encouraged as well as toothbrush precaution. They are to return to clinic if symptoms are not improving as anticipated. Dad's questions have been addressed and they are agreeable to this plan of care. Patient Education #1 Patient/parent/caregiver is ready to learn. No apparent learning barriers were identified. Learning preferences included listening. Explained diagnosis and treatment plan. Patient/parent/caregiver expressed understanding of the content. Jakob Hawkins/melina Electronically Signed By: KONSTANTIN MANCIA NP On: 09/02/2013 10:14 AM Source: [facility] MHSDOLBEYNONRADSYS Document Id: [id number] E PROCESSING ENGINEER documented in this encounter Miscellaneous Notes Miscellaneous - Konstantin Mancia N.P. - 08/29/2013 1:51 PM CST Ambulatory Patient Summary [address] [id number] Visit Information Name: NIKKI CARDONA [facility] Number: [id number] Current Date: 08/29/2013 13:51:24 Physicians Attending Provider: KONSTANTIN MANCIA NP Primary Care Provider: PCP, ELSEWHERE NIKKI CARDONA [...] Indications/Special Instructions/Comments/Notes for Patient Medication Changes/Routing amoxicillin (amoxicillin 400 mg/5 mL oral liquid) 9 Milliliter, Oral, every 12 hours x 10 day(s) NewRouted to [facility] , Stop Taking the Following Medications: Medication list as of 08-29-13 13:51 Attention: If you have any medications at home that are not on this list, DO NOT take them until youcontact your provider for clarification. Give a copy of your medication list to your primary care provider. Update your medication list any time medications or doses are changed and carry your medication list at all times in case of emergency. Your Allergies & Intolerances Substance Reaction Symptoms Category Comments No Known Allergies Your Problem List Problem Status Onset Comments None Active 05/31/2013 Your Upcoming Appointments Date Time Location Reason Provider No Appointments found Attention: Contact your local Clinic if further appointment detail needed. Your Goals/Additional instructions: Source: [facility] POWERCHART Document Id: [id number] E PROCESSING ENGINEER Miscellaneous - Konstantin Mancia, N.P. - 08/29/2013 1:51 PM CST Ambulatory Depart Summary [address] [address] Visit Information Name: BRENDAN NIKKI ALEXANDER [facility] Number: [id number] Visit Date: 08/29/2013 13:51:22 Attending Provider: KONSTANTIN MANCIA CHUTE WORKER Primary Care Provider: PCP, NIKKI CHAIREZ has been given the following list of medications: Your Medications It is important to take your medications as directed. Use a pill box or chart to help remind you to take your medications. Please let your doctor or nurse know if you have problems taking your medications. Medication/Strength How to Take Indications/Special Instructions/Comments/Notes for Patient Medication Changes/Routing amoxicillin (amoxicillin 400 mg/5 mL oral liquid) 9 Milliliter, Oral, every 12 hours x 10 day(s) NewRouted to [facility] , Stop Taking the Following Medications: Medication list as of 08-29-13 13:51 Attention: If you have any medications at home that are not on this list, DO NOT take them until youcontact your provider for clarification. Give a copy of your medication list to your primary care provider. Update your medication list any time medications or doses are changed and carry your medication list at all times in case of emergency. Additional Information: Source: [facility] POWERCHART Document Id: [id number] E PROCESSING ENGINEER Miscellaneous - Kristie Felipe L.P.N. - 08/29/2013 1:14 PM CST [facility] [place] Intake/History [facility] Intake/History Entered On: 08/29/2013 13:19 IMAGE PROCESSING ENGINEER Performed On: 08/29/2013 13:14 IMAGE PROCESSING ENGINEER by KRISTIE FELIPE LPN Intake Chief Complaint : Temp yesterday of 102. This a.m. 99.5 and c/o sore throat. Tylenol given to him yesterday. c/o a small cough. Temperature Core : 36.8 DegC(Converted to: 98.2 DegF) Peripheral Pulse Rate : 73 /min Respiratory Rate : 20 /min Heart Rhythm : Regular Systolic Blood Pressure : 103 mmHg Diastolic Blood Pressure : 63 mmHg NIBP Mean : 76 mmHg BP Location : Left upper extremity Blood Pressure Cuff Size : Pediatric Actual Weight : 33.4 kg(Converted to: 73 lb 10 oz) Weight Source : Standing scale Dosing Weight Clinic : 33.4 kg KRISTIE FELIPE LPN - 08/29/2013 13:14 IMAGE PROCESSING ENGINEER General Info Accompanied By : Father Languages : [place] KRISTIE FELIPE LPN - 08/29/2013 13:14 IMAGE PROCESSING ENGINEER Subjective Pain Symptoms : No KRISTIE FELIPE LPN - 08/29/2013 13:14 IMAGE PROCESSING ENGINEER Dependent Habits Tobacco Use/Currently Using : No Exposure to Tobacco Smoke : Care provider denies smoking in home Smoking Status : Never smoker KRISTIE FELIPE LPN - 08/29/2013 13:14 IMAGE PROCESSING ENGINEER Caffeine Use Grid Caffeine Use : None ANIBALNEHAKRISTIE BEAR LPN - 08/29/2013 13:14 IMAGE PROCESSING ENGINEER Recreational Drug Use Grid Drug Use : None ANIBALNEHAKRISTIE BEAR LPN - 08/29/2013 13:14 IMAGE PROCESSING ENGINEER Source: [facility] POWERCHART Document Id: [id number] IMAGE PROCESSING ENGINEER!30 E PROCESSING ENGINEER documented in this encounter Plan of Treatment Not on filedocumented as of this encounter Procedures Procedure Name Priority Date/Time Associated Diagnosis Comme nts RAPID STREP A Routine 08/29/2013 1:26 PM Results for this SCREEN IMAGE PROCESSING ENGINEER procedure are i n the results section. documented in this encounter Results (ABNORMAL) Rapid Strep A Screen (08/29/2013 1:26 PM IMAGE PROCESSING ENGINEER) [facility] gist Method Time Signature HXStrep A (POSITIVE) POWERCHART Screen Rapid HXFinal Positive for POWERCHART Group A Strep by rapid screen. Specimen (Source) Anatomical Collection Method Collection Time Re ceived Time Location / / Volume Laterality Throat 08/29/2013 1:26 PM IMAGE PROCESSING ENGINEER Konstantin Mancia N.P. LAB MICROBIOLOGY - GENERAL O RDERABLES Performing Organization Address City/State/ZIP Code Phon e Number POWERCHART documented in this encounter Visit Diagnoses Not on filedocumented in this encounter
--- OUTSIDE RECORDS SUMMARY | 2022-05-19 19:43 | XMS_ITS | Encounter Summary ---
:2002 Author Organization [facility] Address [address] [place] [address] Care Team Providers Name Role Phone Unavailable Primary Care Provider Unavailable Encounter Details Date Type Department Care Team Description 11/14/2014 Hospital Encounter HX [facility] Kulwinder Hong M.D. [address] [place] [phone] (Wo rk) Social History Tobacco Use Types Packs/Day Years Used Date Smoking Tobacco: Never Assessed Sex Assigned at Date Recorded Not on file documented as of this encounter Last Filed Vital Signs Vital Sign Reading Time Taken Comments Blood Pressure - - Pulse - - Temperature - - Respiratory Rate - - Oxygen Saturation - - Inhaled Oxygen Concentration - - Weight 38.1 kg (83 lb 15.9 oz) 11/14/2014 1:25 PM CDT Height 150 cm (4' 11.06) 11/14/2014 1:25 PM CDT Body Mass Index 16.93 11/14/2014 1:25 PM CDT Body Mass Index Percentile 33.79 % 11/14/2014 1:25 PM CD T Growth Chart: CDC (Boys, 2-20 Years) documented in this encounter Progress Notes Demi Hong M.D. - 11/14/2014 1:06 PM CDT [id number] CHIEF COMPLAINT/REASON FOR VISIT Rash face. HISTORY OF PRESENT ILLNESS Nikki is a pleasant 14-year-old gentleman who presents to clinic today with a rash at the cornersof his mouth. He states it began approximately 1 week ago after going to the dentist. He states it started out as mild redness with cracking and a few bumps. It has progressed to crusted lesions at this time. The patient and father are looking for further treatment. They deny fevers, chills, nausea orvomiting or other constitutional symptoms. Patient is not immunocompromise. MEDICATIONS None. ALLERGIES None. SYSTEMS REVIEW As per HPI otherwise negative. PHYSICAL EXAMINATION VITAL SIGNS: Temperature 37.0, heart rate 76, weight 38.1 kg, BMI 16.93. GENERAL: He is alert, pleasant, interactive male in no acute distress. SKIN: At the lip creases bilaterally there are erythematous patches with crusting lesions with satellite lesions as well. No tenderness to palpation. No signs of excoriation. IMPRESSION/REPORT/PLAN Perioral dermatitis. We will treat patient with mupirocin ointment 3 times a day for 7- to 10-day course. Recommended continuing until resolved. Recommend followup in clinic if symptoms do not resolve in the next 10 to 14 days. Father is in agreement and understanding of the plan. All questions answered. Demi Hong M.D./jose Electronically Signed By: DEMI HONG MD On: 11/14/2014 03:25 PM Source: [facility] MHSDOLBEYNONRADSYS Document Id: [id number] documented in this encounter Miscellaneous Notes Miscellaneous - Demi Hong M.D. - 11/14/2014 1:51 PM CDT Ambulatory Patient Summary [address] [id number] Visit Information Name: NIKKI CARDONA [facility] Number: [id number] Current Date: 11/14/2014 13:51:30 Physicians Attending Provider: DEMI HONG MD Primary Care Provider: PCP, NIKKI CHAIREZ has [...] 1 elliott, Topical, three times a day New Routed to [facility] [address] [place] [address] Stop Taking the Following Medications: Medication list as of 11-14-14 13:51 Attention: If you have any medications [...] Electronically Signed By: DEMI HONG MD Signed On:14-NOV-2014 13:51:25 Your Allergies & Intolerances Substance Reaction Symptoms Category Comments No Known Medication Allergies Drug NO KNOWN DRUG ALLERGIES Your Problem List Problem Status Onset Comments None Active 05/31/2013 Your Upcoming Appointments Date Time Location Provider No Appointments found Attention: Contact your local Clinic if further appointment detail needed. Your Goals/Additional instructions: Source: [facility] POWERCHART Document Id: [id number] Miscellaneous - Demi Hong M.D. - 11/14/2014 1:51 PM CDT Ambulatory Discharge Medication List [address] [id number] Visit Information Name: NIKKI CARDONA [facility] Number: [id number] Visit Date: 11/14/2014 13:51:29 Attending Provider: DEMI HONG MD Primary Care Provider: PCP, NIKKI CHAIREZ has [...] 1 elliott, Topical, three times a day [facility] [address] [address] Stop Taking the Following Medications: Medication list as of 11-14-14 13:51 Attention: If you have any medications [...] Electronically Signed By: DEMI HONG MD Signed On:14-NOV-2014 13:51:25 Additional Information: Source: [facility] POWERCHART Document Id: [id number] Miscellaneous - Jenny Bennett, L.P.N. - 11/14/2014 1:25 PM CDT Pediatric Wilderness Guide Intake/History Pediatric Wilderness Guide Intake/History Entered On: 11/14/2014 13:28 CDT Performed On: 11/14/2014 13:25 CDT by JENNY BENNETT Intake Chief Complaint : sores around mouth Onset of Symptoms : thursday10/31/14 was at dentist on 10/30/14 Temperature Core : 37.0 DegC(Converted to: 98.6 DegF) Peripheral Pulse Rate : 76 /min Height : 150 cm(Converted to: 4 ft 11 inch(es), 59 inch(es)) Actual Weight : 38.1 kg(Converted to: 84 lb 0 oz) Weight Source : Standing scale Dosing Weight Clinic : 38.1 kg Clinic BSA : 1.26 Body Mass Index : 16.93 kg/m2 JENNY BENNETT - 11/14/2014 13:25 CDT General Info Accompanied By : Father, Sibling Information Given By : Patient, Father Languages : Occitan Is Patient Female and 13-50 no hysterectomy : No JENNY BENNETT - 11/14/2014 13:25 CDT Subjective Pain Symptoms : No JENNY BENNETT - 11/14/2014 13:25 CDT Dependent Habits Tobacco Use/Currently Using : No Exposure to Tobacco Smoke : Care provider denies smoking in home Smoking Status : Never smoker JENNY BENNETT - 11/14/2014 13:25 CDT Caffeine Use Grid Caffeine Use : None JENNY BENNETT - 11/14/2014 13:25 CDT Recreational Drug Use Grid Drug Use : None JENNY BENNETT - 11/14/2014 13:25 CDT ID Screen Travel Within Last 21 Days : No Contact with someone with Ebola : No JENNY BENNETT - 11/14/2014 13:25 CDT [facility] Document Id: [id number] CDT!32 documented in this encounter Plan of Treatment Not on filedocumented as of this encounter Visit Diagnoses Not on filedocumented in this encounter
--- OUTSIDE RECORDS SUMMARY | 2022-05-19 19:43 | XMS_ITS | Encounter Summary ---
:2002 Author Organization [facility] Address [address] [place] [address] Care Team Providers Name Role Phone Unavailable Primary Care Provider Unavailable Encounter Details Date Type Department Care Team Description 07/10/2007 Hospital Encounter HX NO MAPPING Nerissa Dutton M.D. [address] [place] [address] [phone] (Wo rk) Social History Tobacco Use Types Packs/Day Years Used Date Smoking Tobacco: Never Assessed Sex Assigned at Date Recorded Not on file documented as of this encounter Progress Notes Conversion, Historical Provider Ser - 07/10/2007 11:30 AM CST [id number] SUBJECTIVE: The patient comes in with a history of right wrist pain and swelling. Apparently he jumped off some stairs 2 days ago. He also fell again yesterday. OBJECTIVE: The patient is sitting up in no acute distress. Examination of the right wrist shows it to be swollen over the dorsum of the wrist. No obvious angulation. Pulse and sensation appear intact. He does have pain with use of his hand. RADIOGRAPHS: X-ray shows both a distal radius and ulnar fracture. PLAN: Discussed with Dr. Estevez. The patient will be placed in a splint and follow up in the next 2 days forcast placement. Muriel Yi/henrry Source: [facility] RWMCHXTRANSXRTFSYS Document Id: [id number] documented in this encounter Plan of Treatment Not on filedocumented as of this encounter Visit Diagnoses Not on filedocumented in this encounter
--- OUTSIDE RECORDS SUMMARY | 2022-05-19 19:43 | XMS_ITS | Encounter Summary ---
:2002 Author Organization [facility] Address [address] [place] [address] Care Team Providers Name Role Phone Unavailable Primary Care Provider Unavailable Encounter Details Date Type Department Care Team Description 11/26/2005 Hospital Encounter [facility] Provider, [place] Social History Tobacco Use Types Packs/Day Years Used Date Smoking Tobacco: Never Assessed Sex Assigned at Date Recorded Not on file documented as of this encounter Miscellaneous Notes Miscellaneous - Conversion, Historical Provider Ser - 11/26/2005 12:00 AM CDT [id number] Parent(s) of Ovidio Perera [address] [place] [phone] 11/26/2005 Dear Parent(s) of Ovidio, Our records indicate that your child is due for a well child visit. Please call our office to schedule an appointment at your convenience at . [facility]: [facility] Document Id: [id number] documented in this encounter Plan of Treatment Not on filedocumented as of this encounter Visit Diagnoses Not on filedocumented in this encounter
--- OUTSIDE RECORDS SUMMARY | 2022-05-19 19:43 | XMS_ITS | Encounter Summary ---
:2002 Author Organization [facility] Address [address] [place] [address] Care Team Providers Name Role Phone Harjeet Holly M.D. Primary Care Provider Encounter Details Date Type Department Care Team Description 05/14/2018 Hospital Encounter Department of Kira Kirkland Pai n Finger Left Radiology in [facility] C.N.[place], [place] D.N.P. [address] [place] [phone] Social History Tobacco Use Types Packs/Day Years Used Date Smoking Tobacco: Never Sex Assigned at Date Recorded Not on file documented as of this encounter Plan of Treatment Not on filedocumented as of this encounter Procedures Procedure Name Priority Date/Time Associated Comments Diagnosis DX FINGERS LEFT RAD - Routine 05/14/2018 10:01 Pain Finger Left Res ults for this 2+ VIEWS (most inpatients AM CDT procedure a re in and all the results outpatients) section. documented in this encounter Results DX Fingers Left 2+ Views (05/14/2018 10:01 AM CDT) Anatomical Region Laterality Modality Upper Extremity, Fingers, Musculoskeletal RST LOS, Left Digital Radiography Musculoskeletal ARZ LOS, Muskuloskeletal FLA LOS Specimen (Source) Anatomical Collection Method Collection Time Re ceived Time Location / / Volume Laterality 05/14/2018 10:34 AM CDT Impressions 05/14/2018 10:34 AM CDT IMPRESSION: Oblique hairline fracture involving the left fifth proximal phalanx. No angulation or displacement. Joint spa joshua appear maintained. No bony erosive or osteolytic changes or evidence of opa que foreign body. Soft tissue swelling proximal left fifth finger. Narrative 05/14/2018 10:34 AM CDT EXAM: DX FINGERS LEFT 2+ VIEWS Procedure Note Teto Morse M.D. - 05/14/2018Formatt ing of this note might be different from the original. EXAM: DX FINGERS LEFT 2+ VIEWS IMPRESSION: Oblique hairline fracture in volving the left fifth proximal phalanx. No angulation or displacement. Joint spa joshua appear maintained. No bony erosive or osteolytic changes or evidence of opa que foreign body. Soft tissue swelling proximal left fifth finger. Kira Kirkland APRN C.N.P., D.N.P. IMG DIAGNOSTIC IM AGING PROCEDURES documented in this encounter Visit Diagnoses Diagnosis Pain Finger Left documented in this encounter Care Teams Health Equipment Servicer Relationship Specialty Start Date End Date Harjeet Holly M.D. PCP - General 01/29/[address] [place] [phone] documented as of this encounter
--- OUTSIDE RECORDS SUMMARY | 2022-05-19 19:43 | XMS_ITS | Encounter Summary ---
:2002 Author Organization [facility] Address [address] [place] [address] Care Team Providers Name Role Phone Unavailable Primary Care Provider Unavailable Encounter Details Date Type Department Care Team Description 02/28/2008 Hospital Encounter HX [facility] Provider, [employer] Social History Tobacco Use Types Packs/Day Years Used Date Smoking Tobacco: Never Assessed Sex Assigned at Date Recorded Not on file documented as of this encounter Progress Notes Conversion, Historical Provider Ser - 02/28/2008 3:00 PM CDT [id number] This child DOES NOT QUALIFY FOR [facility] PROGRAM Source: [facility] Document Id: [id number] documented in this encounter Plan of Treatment Not on filedocumented as of this encounter Visit Diagnoses Not on filedocumented in this encounter
--- OUTSIDE RECORDS SUMMARY | 2022-05-19 19:43 | XMS_ITS | Encounter Summary ---
:2002 Author Organization [facility] Address [address] [place] [address] Care Team Providers Name Role Phone Unavailable Primary Care Provider Unavailable Encounter Details Date Type Department Care Team Description 10/31/2005 Hospital Encounter [facility]X [facility] Noble Ryan M.D. [address] [place], [place] [address] (Wo rk) Social History Tobacco Use Types Packs/Day Years Used Date Smoking Tobacco: Never Assessed Sex Assigned at Date Recorded Not on file documented as of this encounter Progress Notes Noble Ryan M.D. - 10/31/2005 1:50 PM CST [id number] SUBJECTIVE: Ovidio Perera is an 5 year old male who presents for evaluation and treatment of sore throat. Symptoms include sore throat, fever and irritability. Onset 3 days, stable since that time. Known Strep exposure: none. Current Outpatient Rx Name Route Sig Dispense Refill TYLENOL INFANT DROPS SOLN 100 MG/ML OR Oral 0 Allergies Allergen Reactions No Known Drug Allergies History Substance Use Topics Tobacco Use: Never no second hand smoke Alcohol Use: Not on file OBJECTIVE: Temp (Src) 99.1 (Temporal) Wt 34 lbs 3.2 oz (15.5kg) General appearance: healthy, alert, no distress and cooperative Ears: R TM - normal: no effusions, no erythema, and normal landmarks, L TM - normal: no effusions, no erythema, and normal landmarks Nose: normal Oropharynx: moderate erythema Neck: normal, supple and small, benign anterior cervical nodes bilaterally Lungs: normal and clear to auscultation Heart: regular rate and rhythm and no murmurs, clicks, or gallops ASSESSMENT: Acute pharyngitis - r/o Strep RSS positive Dx: Strep pharyngitis Rx: 1) Symptomatic treatment with fluids, vaporizer, acetaminophen. 2) Recheck as needed for persistence, worsening, appearance of new symptoms. 3) Bicillin per orders. Source: [facility] RWHXTRANSXRTFSYS Document Id: [id number] documented in this encounter Plan of Treatment Not on filedocumented as of this encounter Visit Diagnoses Not on filedocumented in this encounter
--- OUTSIDE RECORDS SUMMARY | 2022-05-19 19:43 | XMS_ITS | Encounter Summary ---
:2000 Author Organization [facility] Address [address] [place] [address] Care Team Providers Name Role Phone Harjeet Holly M.D. Primary Care Provider Reason for Visit Reason Comments Cough productive cough x 2 weeks a nd shortness of breath Appointment Request (Routine) - Closed Specialty Diagnoses / Procedures Referred By Contact Refer red To Contact Family Medicine Referral ID Status Reason Start Date Expiration Date Visits Requ ested Visits Authorized [id number] Closed 09/02/2018 09/02/2019 1 Encounter Details Date Type Department Care Team Description 09/03/2018 Office Visit Department of Family [facility], [place] [facility], in [address] [phone] (Work) [phone] Social History Tobacco Use Types Packs/Day Years Used Date Smoking Tobacco: Never Smokeless Tobacco: Never Sex Assigned at Date Recorded Not on file documented as of this encounter Last Filed Vital Signs Vital Sign Reading Time Taken Comments Blood Pressure 111/60 09/03/2018 3:40 PM PET CREMATORY WORKER Pulse 67 09/03/2018 3:40 PM PET CREMATORY WORKER Temperature 36.6 ??C (97.9 ??F) 09/03/2018 3:40 PM PET CREMATORY WORKER Respiratory Rate 16 09/03/2018 3:40 PM PET CREMATORY WORKER Oxygen Saturation 98% 09/03/2018 3:40 PM PET CREMATORY WORKER Inhaled Oxygen Concentration - - Weight 65.9 kg (145 lb 4.5 oz) 09/03/2018 3:40 PM PET CREMATORY WORKER Height - - Body Mass Index - - documented in this encounter Progress Notes Merline Dorman P.A.-C. - 09/03/2018 3:45 PM CST SUBJECTIVE CHIEF COMPLAINT/REASON FOR VISIT Ovidio Perera is a 17 y.o. male who presents for evaluation of Cough (productive cough x 2 weeks and shortness of breath). HISTORY OF PRESENT ILLNESS Ovidio is a 17 year old male who presents today for evaluation of cough and rhinorrhea for the past 2 weeks. He has had a productive cough with some shortness of breath. He denies any fevers or chills. He has been using Nyquil with some improvement. The following portions of the patient's history were reviewed and updated as appropriate: allergies,current medications, medical history, social history and problem list. REVIEW OF SYSTEMS A brief review of systems was negative except for that mentioned in the history of present of illness. CURRENT MEDICATIONS No current outpatient prescriptions on file. ALLERGIES/CONTRAINDICATIONS No Known Allergies OBJECTIVE PHYSICAL EXAMINATION Vital Signs: BP 111/60 (BP Location: Left arm, Patient Position: Sitting, Cuff Size: Regular) Pulse 67 Temp 36.6 ??C (Temporal) Resp 16 Wt 65.9 kg SpO2 98% There is no height or weight on file to calculate BMI. General: Patient is in no distress. HEENT: Normocephalic. PERRL, Canals patent, bilateral TMs are nonerythematous and non-bulging. Nasalmucosa is nonerythematous and not boggy, turbinates bilaterally are normal in appearance, Oropharynxwithout lesion of mucosa. Pharynx rises symmetrically without exudate or erythema. Neck: No cervical or supraclavicular lymphadenopathy Heart: Regular rate and rhythm. No murmurs, gallops or rubs noted. Lungs: Coarse breath sounds and decreased breath sounds throughout. No focal crackles or wheezes. Neuro: Alert and nonfocal, moving all 4 extremities Psych: Appropriate affect ASSESSMENT/PLAN #1 Bronchitis Acute Azithromycin prescribed for patient for presumed bronchitis. Continue symptomatic treatments as needed. Hydration and rest are very important. Follow up in 1-2 weeks if not improving. Merline Dorman P.A.-C. CREMATORY WORKER documented in this encounter Plan of Treatment Not on filedocumented as of this encounter Visit Diagnoses Diagnosis Bronchitis Acute - Primary documented in this encounter Care Teams Container Finisher Relationship Specialty Start Date End Date Harjeet Holly M.D. PCP - General 01/29/[address] [place] [id number] documented as of this encounter
--- OUTSIDE RECORDS SUMMARY | 2022-05-19 19:44 | XMS_ITS | Encounter Summary ---
:2000 Author Organization [facility] Address [address] [place] [address] Care Team Providers Name Role Phone Unavailable Primary Care Provider Unavailable Encounter Details Date Type Department Care Team Description 2002 Hospital Encounter [facility] Dech, Noble Juárez M.D. [address] [place], [place] [address] (Wo rk) Social History Tobacco Use Types Packs/Day Years Used Date Smoking Tobacco: Never Assessed Sex Assigned at Date Recorded Not on file documented as of this encounter Progress Notes Conversion, Historical Provider Ser - 2002 10:10 AM CDT [id number] Ovidio Perera is a 2 month old male here for 2 month well child exam.Brought in by mother and gran dmother. HISTORYCurrent Concerns: noneDiet: breast feedingSleep: wakes at night for feedings 1x /nocElimination: Normal bowel movements and Normal urination. Daycare: NoNoteworthy social stresso rs: noneHistory Modules Reviewed: YesThere is no problem list on file for this patient.Any hearin g or vision concerns? noDEVELOPMENTAL SCREEN: SOCIAL Social smile YesFINE MOTOR Ey es follow to midline: Yes GROSS MOTORLifts head: YesLANGUAGEResponds to loud soun d/jalloh: YesVocalizes/coos: YesPHYSICAL EXAM: There were no vitals taken for this visit.Growth charts reviewed:YesGeneral:Alert, interactive and appropriate and no distressHead: NORMAL Fontanelles: NORMALEyes: NORMAL Red Reflex: NORMALEars: NORMALNose: NORMALMouth: NORMALNeck: NORMALResp: NORMALHeart: NORMAL Femoral artery: NORMALAbdomen: NORMAL Umbilicus NORMALGenitalia: NORMAL male - circumcisedMusculoskeletal: NORMAL Hips: NORMALSkin: NORMALNeurological: NORMALEDUCATION/DISCUSSED: Acetaminophen dose/ fever managementVaccine Information Statements given and discussedSleep patterns.Handout on age a ppropriate development/safety given.ASSESSMENT/PLAN: Well baby with normal growth and development at 2 months.Immunizations discussed and ordered.Return in 2 months. Source: [facility] RWHXTRANSXSYS Document Id: [id number] documented in this encounter Plan of Treatment Not on filedocumented as of this encounter Visit Diagnoses Not on filedocumented in this encounter
--- OUTSIDE RECORDS SUMMARY | 2022-05-19 19:44 | XMS_ITS | Encounter Summary ---
:2000 Author Organization [facility] Address [address] [place] [address] Care Team Providers Name Role Phone Unavailable Primary Care Provider Unavailable Encounter Details Date Type Department Care Team Description 02/26/2004 Hospital Encounter HX [facility] Dech, Noble Juárez M.D. [address] [place], [place] [address] (Wo rk) Social History Tobacco Use Types Packs/Day Years Used Date Smoking Tobacco: Never Assessed Sex Assigned at Date Recorded Not on file documented as of this encounter Progress Notes Conversion, Historical Provider Ser - 02/26/2004 1:30 PM CDT [id number] This child qualifies for [place]ought the [place] program because she (choose only one box in d escending order):is enrolled in a [facility] Care Program: - [place] Medical [place] ([place])Ovidioshay Perera is a 16 month old male here for 15 month well child exam.Brought in by mother. HISTORYCu rrent Concerns: noneDiet: finger foods, table food and whole milkWater Source: city water.Elimina tion: Normal bowel movements and Normal urination.Sleep: sleeps through the night. Daycare: YesNot eworthy social stressors: noneHistory Modules Reviewed: YesAny hearing or vision concerns? noDEV ELOPMENTAL SCREEN: Parent Concerns about Development:NOSOCIALUses cup spoon: YesPlays ball: YesImitates household activity: YesFINE MOTORNeat pincer grasp: Ye sTurns single pages: YesIn and Out: YesGROSS MOTORStoops and recovers: YesWalks well: YesRuns: YesLANGUAGEIndicates wants: YesUnderstands commands: YesOne word: Yes3-6 words: YesPHYSICAL EXAM: There were no vitals taken for this visit.Growth charts reviewed.General: Alert, interactive and appropriateHead: NORMALEyes: NORMAL EOM (cover/uncover): NORMALEars: NORMALNose: NORMALMouth: NORMALNeck: NORMALResp: NORMALHeart: NORMALAbdomen: NORMALGenitalia: NORMAL male - circumcis edMusculoskeletal: NORMAL Gait: NORMALSkin: NORMALNe urological: NORMALEDUCATION/DISCUSSED: Table foodsWeaned from bottleStress safety/cl imbingNo toilet trainingGaitSun exposure/ Insect repellantAcetominophen dose.ASSESSMENT/PLAN: Normal growth and development at 16 month old.Handout on age appropriate development/safety given.A fter discussion of immunizations and any previous adverse reactions, immunizations are ordered and gi soto.Return 3 months (age 18 months). Source: [facility] RWHXTRANSXSYS Document Id: [id number] documented in this encounter Plan of Treatment Not on filedocumented as of this encounter Visit Diagnoses Not on filedocumented in this encounter
--- OUTSIDE RECORDS SUMMARY | 2022-05-19 19:44 | XMS_ITS | Encounter Summary ---
:2000 Author Organization [facility] Address [address] [place] [address] Care Team Providers Name Role Phone Unavailable Primary Care Provider Unavailable Encounter Details Date Type Department Care Team Description 05/01/2003 Hospital Encounter HX [facility] Dech, Noble Juárez M.D. [address] [place], [place] [address] (Wo rk) Social History Tobacco Use Types Packs/Day Years Used Date Smoking Tobacco: Never Assessed Sex Assigned at Date Recorded Not on file documented as of this encounter Progress Notes Conversion, Historical Provider Ser - 05/01/2003 11:10 AM CDT [id number] Ovidio Perera is a 6 month old male here for a 6 month well child exam.Brought in by mother. HIS TORYCurrent Concerns:noneDiet: formula: Enfamil Lipil and rice cereal, jar baby food.Water sourc e: city water.Elimination: Normal bowel movements and Normal urination. Sleep: sleeps through the n ight.Daycare: NoNoteworthy social stressors: noneAny hearing or vision concerns? noDEVELOPMENTA L SCREEN:Parent concerns regarding development: NOSOCIAL Reaches: YesFINE MOTOR: Passes toy hand to hand: Yes GROSS MOTORRolls both ways: YesBears some weight: YesSits with support: YesLANGUAGETurns to sound/voice: YesRazz: Yes PHYSICAL EXAM: There were no vitals taken for this visit.Growth charts reviewed.General: Alert, interactive and appropriate and no distressHead: NORMAL Fontanelles: NORMALEyes: NORMAL Red reflex: NORMALEars: NORM ALNose: NORMALMouth: NORMALNeck: NORMALRe sp: NORMALHeart: NORMALAbdomen: NORMALGenital ia: NORMAL male - circumcisedMusculoskeletal: NORMAL Hips: NORMALSkin: NORMALNeurological: NORMALEDUCATION/DISCUSSED: Readin g/language developmentCar seat positionMobility/Check home hazardsCords, stairs, tableclothsSolid sIntroduce cupAcetaminophen doseStranger anxiety.Handout on age appropriate development/safety g iven.ASSESSMENT/PLAN:Normal growth and development at 6 month old.Immunizations, including previo us adverse reactions, discussed and given.Return in 3 months at age 9 months. Source: [facility] RWHXTRANSXSYS Document Id: [id number] documented in this encounter Plan of Treatment Not on filedocumented as of this encounter Visit Diagnoses Not on filedocumented in this encounter
--- OUTSIDE RECORDS SUMMARY | 2022-05-19 19:44 | XMS_ITS | Encounter Summary ---
:2000 Author Organization [facility] Address [address] [place] [address] Care Team Providers Name Role Phone Unavailable Primary Care Provider Unavailable Encounter Details Date Type Department Care Team Description 08/11/2003 Hospital Encounter HX NO MAPPING Mechelle King M.D. [address] [place], [place] [address] (Wo rk) Social History Tobacco Use Types Packs/Day Years Used Date Smoking Tobacco: Never Assessed Sex Assigned at Date Recorded Not on file documented as of this encounter Plan of Treatment Not on filedocumented as of this encounter Visit Diagnoses Not on filedocumented in this encounter
--- OUTSIDE RECORDS SUMMARY | 2022-05-19 19:44 | XMS_ITS | Encounter Summary ---
:2000 Author Organization [facility] Address [address] [place] [address] Care Team Providers Name Role Phone Unavailable Primary Care Provider Unavailable Encounter Details Date Type Department Care Team Description 2002 Hospital Encounter HX NO MAPPING Provider, Historical Social History Tobacco Use Types Packs/Day Years Used Date Smoking Tobacco: Never Assessed Sex Assigned at Date Recorded Not on file documented as of this encounter Plan of Treatment Not on filedocumented as of this encounter Visit Diagnoses Not on filedocumented in this encounter
--- OUTSIDE RECORDS SUMMARY | 2022-05-19 19:44 | XMS_ITS | Encounter Summary ---
:[address] [facility] Address [address] [place] [address] Care Team Providers Name Role Phone Unavailable Primary Care Provider Unavailable Encounter Details Date Type Department Care Team Description 05/28/2005 Hospital Encounter HX NO MAPPING Provider, Historical Social History Tobacco Use Types Packs/Day Years Used Date Smoking Tobacco: Never Assessed Sex Assigned at Date Recorded Not on file documented as of this encounter Plan of Treatment Not on filedocumented as of this encounter Visit Diagnoses Not on filedocumented in this encounter
--- OUTSIDE RECORDS SUMMARY | 2022-05-19 19:44 | XMS_ITS | Encounter Summary ---
:2000 Author Organization [facility] Address [address] [place] [address] Care Team Providers Name Role Phone Unavailable Primary Care Provider Unavailable Encounter Details Date Type Department Care Team Description 02/06/2003 Hospital Encounter [facility] Dech, Noble Juárez M.D. [address] [place], [place] [address] (Wo rk) Social History Tobacco Use Types Packs/Day Years Used Date Smoking Tobacco: Never Assessed Sex Assigned at Date Recorded Not on file documented as of this encounter Progress Notes Conversion, Historical Provider Ser - 02/06/2003 2:30 PM CDT [id number] Ovidio Perera is a 3 month old male here for 4 month well child exam.Brought in by mother. HISTO RYCurrent Concerns:noneDiet: breast feeding and formula: Enfamil with iron:Elimination: Normal b owel movements and Normal urination.Sleep: sleeps through.Daycare: no Noteworthy social stressors: noneHistory Modules Reviewed :YesThere is no problem list on file for this patient.Any hearing o r vision concerns? noDEVELOPMENTAL SCREEN: Parent Concerns: NOSOCIAL Spontaneous smile: YesTracks/follows parent with eyes: YesFINE MOTORHands unfisted: Yes H ands together in midline: YesGrasps rattle: YesGROSS MOTORHead steady in s itting position: YesProne - chest up: YesProne - extend elbows YesLANGUA GELaughs squeals: Yesah-goo: Yes PHYSICAL EXAM: The re were no vitals taken for this visit.General: Alert, interactive and appropriate and no distress Head: NORMAL Fontanelles: NORMALEyes: NORMAL Red reflex: NORMALEars: NORMALNose: NORMALMouth: NORMALNeck: NORMALResp: NORMALHeart: NORMALAbdomen: NORMALGenitalia: NORMAL male - circumcisedM usculoskeletal: NORMAL Hips: NORMALSkin: NORMALNeurol ogical: NORMALEDUCATION/DISCUSSED: Adding solid foodsAccidental ingestion/chokingSma ll objects out of reach/hot liquidsBaby bottle mouth preventionCar safetyToy safetyAcetaminophen dose.Handout on age appropriate development/safety given.ASSESSMENT/PLAN:Well baby with normal g rowth and development at 3 month old.Immunizations, including any previous adverse reactions, discus sed and ordered.Return in 2 months Source: [facility] RWHXTRANSXSYS Document Id: [id number] documented in this encounter Plan of Treatment Not on filedocumented as of this encounter Visit Diagnoses Not on filedocumented in this encounter
--- OUTSIDE RECORDS SUMMARY | 2022-05-19 19:44 | XMS_ITS | Encounter Summary ---
:2000 Author Organization [facility] Address [address] [place] [address] Care Team Providers Name Role Phone Unavailable Primary Care Provider Unavailable Encounter Details Date Type Department Care Team Description 2002 Hospital Encounter HX NO MAPPING Provider, Historical Social History Tobacco Use Types Packs/Day Years Used Date Smoking Tobacco: Never Assessed Sex Assigned at Date Recorded Not on file documented as of this encounter Miscellaneous Notes Miscellaneous - Jennie, Taco Provider Ser - 2002 12:00 AM FINISHER [employer] [id number] Addended by: IVETTE HUNTLEY on: 2002,1:06 PMModules accepted: Order Summary*-*-*-*-* SEE S RAZAED REPORT *-*-*-*-* Source: [facility] RWHXTRANSXSYS Document Id: [id number] documented in this encounter Plan of Treatment Not on filedocumented as of this encounter Visit Diagnoses Not on filedocumented in this encounter
--- OUTSIDE RECORDS SUMMARY | 2022-05-19 19:44 | XMS_ITS | Encounter Summary ---
:2000 Author Organization [facility] Address [address] [place] [address] Care Team Providers Name Role Phone Unavailable Primary Care Provider Unavailable Encounter Details Date Type Department Care Team Description 02/28/2004 Hospital Encounter HX [facility] Provider, [employer]ima brand Social History Tobacco Use Types Packs/Day Years Used Date Smoking Tobacco: Never Assessed Sex Assigned at Date Recorded Not on file documented as of this encounter Miscellaneous Notes Telephone Encounter - Conversion, Taco Provider Ser - 02/28/2004 12:00 AM CDT [id number] >> TONE LINDO ThuFeb 28, 2004 2:28 PM Mom stated that she did not want to go to [place]. Offered her [address] Dutton. She chose to call and possibly go to [place]. Ask if she could get information(about the visit) sent to us to help in the future appts. >> ALFREDO SCHUMACHER ThuFeb 28, 2004 2:02 PM He should be seen. >> TONE LINDO ThuFeb 28, 2004 1:55 PM >> CALL RECEIVED. Contact: osvaldo [phone] Told mom he should be seen as stated in note from December. Mom thinks it is the same thing that happene d and you just moved it around and it was fixed--mom requesting you tell her what you did so she can just do it. [facility] Document Id: [id number] documented in this encounter Plan of Treatment Not on filedocumented as of this encounter Visit Diagnoses Not on filedocumented in this encounter
--- OUTSIDE RECORDS SUMMARY | 2022-05-19 19:44 | XMS_ITS | Encounter Summary ---
:[address] [facility] Address [address] [place] [address] Care Team Providers Name Role Phone Unavailable Primary Care Provider Unavailable Encounter Details Date Type Department Care Team Description 2002 - Hospital Encounter HX NO MAPPING Noble Ryan M.D. [address] [place], [place] [address] (Wo rk) Social History Tobacco Use Types Packs/Day Years Used Date Smoking Tobacco: Never Assessed Sex Assigned at Date Recorded Not on file documented as of this encounter Plan of Treatment Not on filedocumented as of this encounter Visit Diagnoses Not on filedocumented in this encounter
--- OUTSIDE RECORDS SUMMARY | 2022-05-19 19:44 | XMS_ITS | Encounter Summary ---
:2002 Author Organization [facility] Address [address] [place] [address] Care Team Providers Name Role Phone Unavailable Primary Care Provider Unavailable Encounter Details Date Type Department Care Team Description 2002 Hospital Encounter HX [facility] Romelia Spann R.N. Social History Tobacco Use Types Packs/Day Years Used Date Smoking Tobacco: Never Assessed Sex Assigned at Date Recorded Not on file documented as of this encounter Progress Notes Conversion, Historical Provider Ser - 2002 12:00 AM CST [id number] Name: Hermelindo Akbar of Baby's : 2000 Date of Discharge: 02 Discharge Weight: 7#4ozDate of Discharge phone call: 02 Discharge Class Date: 02 and 02Weight at Class: 7#12oz on 10/27 and 8# on 02FEEDING: breast every 2-2 1/2 SPITTING:NoneSTOOLS : Yellow. Frequency 4-6 per day.CORD: Drying well, at baseCOLOR: PinkSKIN: no co ncernsCIRCUMCISION:[place], little swelling, yellow patches present on 10/27 10/31 looks healedMOUTH: No concernsTEMPERMENT: Content, cuddly between feedingsPARENTAL ROLE: Tired, has additional he lper, not fully recovered physicallyMOM's RECOVERY: Drinking to thirst, appetite near normal. doing much better wt gain on baby definitely made mom feel more confident. encouraged one sided feeds. exp lanation given.Assessed by: Romelia Spann RN, IBCLC [facility] Document Id: [id number] documented in this encounter Plan of Treatment Not on filedocumented as of this encounter Visit Diagnoses Not on filedocumented in this encounter
--- OUTSIDE RECORDS SUMMARY | 2022-05-19 19:44 | XMS_ITS | Encounter Summary ---
:2002 Author Organization [facility] Address [address] [place] [address] Care Team Providers Name Role Phone Unavailable Primary Care Provider Unavailable Encounter Details Date Type Department Care Team Description 09/14/2003 Hospital Encounter HX [facility] Dech, Noble Juárez M.D. [address] [place], [place] [address] (Wo rk) Social History Tobacco Use Types Packs/Day Years Used Date Smoking Tobacco: Never Assessed Sex Assigned at Date Recorded Not on file documented as of this encounter Progress Notes Conversion, Historical Provider Ser - 09/14/2003 11:10 AM CST [id number] Pt is a 10 month old male brought by father who presents with concerns about possible conjunctivitis. There has been 1days of left conjunctival injection and yellow discharge. There is no pain, photop hobia, blurriness or diplopia. Additional symptoms include none.Obj: Temp (Src) 98.5 (Rectal) W t 20 lbs 9 oz (9.3kg)Gen: WDWN, alert, NADHead: Normocephalic, atraumaticEyes: EOMI, PERRLA, le ft conjunctival injection with yellow discharge notedEars: TM's clear bilaterallyNose: normalMou th: MMM without lesionsPharynx: Not inflamed, no exudateNeck: suppleLungs: clearHeart: Regula r rate and rhythm without murmers.Impression: Acute left conjunctivitisPlan: Polytrim Ophthalmic Solution 2 drops to affected eye(s) QID until clear.Frequent handwashing, try not to touch eyes.Re turn if symptoms worsen or persist beyond 7 days. [facility] Document Id: [id number] documented in this encounter Plan of Treatment Not on filedocumented as of this encounter Visit Diagnoses Not on filedocumented in this encounter
--- OUTSIDE RECORDS SUMMARY | 2022-05-19 19:44 | XMS_ITS | Encounter Summary ---
:2002 Author Organization [facility] Address [address] [place] [address] Care Team Providers Name Role Phone Unavailable Primary Care Provider Unavailable Encounter Details Date Type Department Care Team Description 11/05/2004 Hospital Encounter HX [facility] PED[facility]ATRIC Provider, Tima brand Social History Tobacco Use Types Packs/Day Years Used Date Smoking Tobacco: Never Assessed Sex Assigned at Date Recorded Not on file documented as of this encounter Miscellaneous Notes Miscellaneous - Conversion, Taco Provider Ser - 11/05/2004 12:00 AM FINANCE CONTROLLER [id number] To the parents of: Ovidio Perera [address] [place] [phone] November 05, 2004 Dear Parent(s): Our records show that Ovidio has not completed his series of Prevnar immunization (for pneumococcus). The Center for Disease Control (CDC) recommends this series be completed prior to age 2. After age 2 years, the vaccine is recommended only for those at high risk for infection including those with i mmune deficiencies or other serious medical conditions. Due to an intermittent national shortage in the supply of this vaccine, some children did not receive the 4th dose before age 2. Because the vaccine shortage is continuing, we will no longer offer the 4th dose of vaccine to healthy children over age 2 years of age. You may consider your child fully immunized. Please feel free to discuss this with us at your next appointment. Sincerely, Noble Ryan M.D. PEDIATRICS Source: [facility] Document Id: [id number] documented in this encounter Plan of Treatment Not on filedocumented as of this encounter Visit Diagnoses Not on filedocumented in this encounter
--- OUTSIDE RECORDS SUMMARY | 2022-05-19 19:44 | XMS_ITS | Encounter Summary ---
:2002 Author Organization [facility] Address [address] [place] [address] Care Team Providers Name Role Phone Unavailable Primary Care Provider Unavailable Encounter Details Date Type Department Care Team Description 04/10/2003 Hospital En[facility] Provider, [place] Social History Tobacco Use Types Packs/Day Years Used Date Smoking Tobacco: Never Assessed Sex Assigned at Date Recorded Not on file documented as of this encounter Miscellaneous Notes Miscellaneous - Conversion, Historical Provider Ser - 04/10/2003 12:00 AM CDT [id number] Parent(s) of Ovidio Perera [address] [place] [phone] 04/10/2003 Dear Parent(s) of Ovidio, Our records indicate that your child is due for a well child visit. Please call our office to schedule an appointment at your convenience at . Source: [facility] Document Id: [id number] documented in this encounter Plan of Treatment Not on filedocumented as of this encounter Visit Diagnoses Not on filedocumented in this encounter
--- OUTSIDE RECORDS SUMMARY | 2022-05-19 19:44 | XMS_ITS | Encounter Summary ---
:2002 Author Organization [facility] Address [address] [place] [address] Care Team Providers Name Role Phone Unavailable Primary Care Provider Unavailable Encounter Details Date Type Department Care Team Description 08/20/2004 Hospital Encounter HX [facility] PEDIATRIC Dech, Noble Juárez M.D. [address] [place], [place] [address] (Wo rk) Social History Tobacco Use Types Packs/Day Years Used Date Smoking Tobacco: Never Assessed Sex Assigned at Date Recorded Not on file documented as of this encounter Miscellaneous Notes Telephone Encounter - Conversion, Historical Provider Ser - 08/20/2004 12:00 AM CST [id number] >> BON Umaña Aug 20, 2004 11:03 AM Ovidio Corrina Perera ASQ score is normal for age 20 months. Source: [facility] Document Id: [id number] documented in this encounter Plan of Treatment Not on filedocumented as of this encounter Visit Diagnoses Not on filedocumented in this encounter
--- OUTSIDE RECORDS SUMMARY | 2022-05-19 19:44 | XMS_ITS | Encounter Summary ---
:2002 Author Organization [facility] Address [address] [place] [address] Care Team Providers Name Role Phone Unavailable Primary Care Provider Unavailable Encounter Details Date Type Department Care Team Description 06/18/2003 Hospital Encounter HX NO MAPPING Herve Garg M.D. [address] [place] [phone] (Wo rk) Social History Tobacco Use Types Packs/Day Years Used Date Smoking Tobacco: Never Assessed Sex Assigned at Date Recorded Not on file documented as of this encounter Plan of Treatment Not on filedocumented as of this encounter Visit Diagnoses Not on filedocumented in this encounter
--- OUTSIDE RECORDS SUMMARY | 2022-05-19 19:44 | XMS_ITS | Encounter Summary ---
:[address] [facility] Address [address] [place] [address] Care Team Providers Name Role Phone Unavailable Primary Care Provider Unavailable Encounter Details Date Type Department Care Team Description 12/12/2004 Hospital Encounter HX [facility] PEDIATRIC Dech, Noble Juárez M.D. [address] [place], [place] [address] (Wo rk) Social History Tobacco Use Types Packs/Day Years Used Date Smoking Tobacco: Never Assessed Sex Assigned at Date Recorded Not on file documented as of this encounter Miscellaneous Notes Telephone Encounter - Jennie, Taco Provider Chandan - 12/12/2004 12:00 AM CDT [id number] Form on your desk Source: [facility] Document Id: [id number] documented in this encounter Plan of Treatment Not on filedocumented as of this encounter Visit Diagnoses Not on filedocumented in this encounter
--- OUTSIDE RECORDS SUMMARY | 2022-05-19 19:44 | XMS_ITS | Encounter Summary ---
:2002 Author Organization [facility] Address [address] [place] [address] Care Team Providers Name Role Phone Unavailable Primary Care Provider Unavailable Encounter Details Date Type Department Care Team Description 03/15/2003 Hospital Encounter HX [facility] PEDIATRIC Dech, Noble Juárez M.D. [address] [place], [place] [address] (Wo rk) Social History Tobacco Use Types Packs/Day Years Used Date Smoking Tobacco: Never Assessed Sex Assigned at Date Recorded Not on file documented as of this encounter Progress Notes Conversion, Historical Provider Ser - 03/15/2003 10:50 AM CDT [id number] SUBJECTIVE: 4 month old male brought by mother with 2 days history of nasal congestion, rhinorrhea, and cough. Temperature afebrile at home. Has had some L eye mattering, conj. and lid have not been inflamedNo ear pain, pulling on ears, vomiting or diarrhea.OBJECTIVE: GENERAL: Patient NAD, smil ing EYES: No injection, lids clear, small amount yellow dischargeEARS: TMs carrillo and translucent espinoza aterally NOSE: positive findings: cloudy rhinorrheaTHROAT: Clear NECK: Supple without lymphadenopa thy CHEST: Lungs clear to auscultation bilaterally HEART: RR without murmur ABD: SoftSKIN: no kristen hesASSESSMENT: Viral URIPLAN: per orders. Push fluids, vaporizer, tylenol at dose appropriate fo r age and weight. See prn. Source: [facility] Document Id: [id number] documented in this encounter Plan of Treatment Not on filedocumented as of this encounter Visit Diagnoses Not on filedocumented in this encounter
--- OUTSIDE RECORDS SUMMARY | 2022-05-19 19:44 | XMS_ITS | Encounter Summary ---
:2002 Author Organization [facility] Address [address] [place] [address] Care Team Providers Name Role Phone Unavailable Primary Care Provider Unavailable Encounter Details Date Type Department Care Team Description 05/20/2004 Hospital Encounter HX [facility] PEDIATRIC Noble Ryan M.D. [address] [place], [place] [address] (Wo rk) Social History Tobacco Use Types Packs/Day Years Used Date Smoking Tobacco: Never Assessed Sex Assigned at Date Recorded Not on file documented as of this encounter Progress Notes Conversion, Historical Provider Ser - 05/20/2004 1:50 PM CDT [id number] Addended by: AMY PITTMAN on: 05/23/2004,9:45 AM Comment: TranscriptionModules accepted: Leola soto Munir is an 18-month old boy who presents for reevaluation of right leg pain. He g ot his right ankle twisted while going down the slide with his aunt 8 days ago. He presented 7 days a go because he was not bearing weight. At that time his exam and an x-ray were unremarkable. Since th at time he has continued to refuse weight bearing. He is using it a little bit more but not much. OBJECTIVE: He is well-developed, well-nourished, alert, no acute distress. The ankle has no ecchymo sis or swelling. He has full range of motion and no apparent tenderness.IMPRESSION: Right leg pain .PLAN: I have asked Dr. Steel in Orthopedics to examine David. He will see David in the Orth opedic clinic this afternoon. Nobel Ryan M.D./amad: 05/20/2004t: 05/22/2004 Source: [facility] Document Id: [id number] documented in this encounter Plan of Treatment Not on filedocumented as of this encounter Visit Diagnoses Not on filedocumented in this encounter
--- OUTSIDE RECORDS SUMMARY | 2022-05-19 19:44 | XMS_ITS | Encounter Summary ---
:2002 Author Organization [facility] Address [address] [place] [address] Care Team Providers Name Role Phone Unavailable Primary Care Provider Unavailable Encounter Details Date Type Department Care Team Description 11/07/2003 Hospital Encounter [facility] PED[facility]ATRIC Dech, Noble Juárez M.D. [address] [place], [place] [address] (Wo rk) Social History Tobacco Use Types Packs/Day Years Used Date Smoking Tobacco: Never Assessed Sex Assigned at Date Recorded Not on file documented as of this encounter Progress Notes Conversion, Historical Provider Ser - 11/07/2003 9:50 AM CST [id number] Ovidio Perera is a 12 month old male here for a 12 month well child exam.Brought in by mother. HISTORYCurrent Concerns:noneDiet:finger foods, table food and whole milk.Water Source: [facility]anoElimination: Normal bowel movements and Normal urination. Sleep: sleeps through the night.Day Ca re: NoNoteworthy social stressors: noneHistory Modules Reviewed:YesThere is no problem list on romain e for this patient.Any hearing or vision concerns? noDEVELOPMENTAL SCREEN: Parent Concerns: N OSOCIALPlays Pat-a-cake: YesWaves bye-bye: YesIndicates Wants: YesFINE MOTOR Drinks from Cup: YesBangs 2 cubes: Yes Puts Block in Cup: YesGROSS MOTORStands (2 sec .): YesWalks Well: YesLANGUAGEJabbers: YesMama/Ravinder specific: Yes1 - 2 Words: Yes1 Step Command with Gesture: YesPoints to Desired Object: YesPHYSIC AL EXAM: There were no vitals taken for this visit.Growth charts reviewed.General: Alert, interac tive and appropriateHead: NORMAL Fontanelles: NORMALEyes: NORMAL EOM (cover/uncover): NORMALEars: NORMALNose: NORMALMouth: NORMALNeck: NORMALResp: N ORMALHeart: NORMALAbdomen: NORMALGenitalia: NORMAL Musculoskeletal: NORMALSkin: NORMALNeurological: NORMALLAB : HGB 11.9 08/29/2003LEAD 3 08/30/2003EDUCATION/DISCUSSED: Wean to cupEating rodas bits (safety)Appetite slowsSet limits/disciplineDental care/bottle mouth/brush teethAcetaminophen doseCar safety.ASSESSMENT/PLAN:Normal growth and development at 12 month oldHandout on age elliott ropriate development/safety given.Labs as ordered. (Hemoglobin if not done previously and lead level if risk factors present by screening questions. Immunizations if needed.Return in 3 months at age 15 months. Source: [facility] RWHXTRANSXSYS Document Id: [id number] documented in this encounter Plan of Treatment Not on filedocumented as of this encounter Visit Diagnoses Not on filedocumented in this encounter
--- OUTSIDE RECORDS SUMMARY | 2022-05-19 19:44 | XMS_ITS | Encounter Summary ---
:2002 Author Organization [facility] Address [address] [place] [address] Care Team Providers Name Role Phone Unavailable Primary Care Provider Unavailable Encounter Details Date Type Department Care Team Description 07/17/2003 [facility] Provider, Tima brand Social History Tobacco Use Types Packs/Day Years Used Date Smoking Tobacco: Never Assessed Sex Assigned at Date Recorded Not on file documented as of this encounter Miscellaneous Notes Miscellaneous - Conversion, Historical Provider Ser - 07/17/2003 12:00 AM MOTOR AND GENERATOR ASSEMBLER [id number] Parent(s) of Ovidio Perera [address] [place] [phone] 07/17/2003 Dear Parent(s) of Ovidio, Our records indicate that your child is due for a well child visit. Please call our office to schedule an appointment at your convenience at . Source: [facility] Document Id: [id number] documented in this encounter Plan of Treatment Not on filedocumented as of this encounter Visit Diagnoses Not on filedocumented in this encounter
--- OUTSIDE RECORDS SUMMARY | 2022-05-19 19:44 | XMS_ITS | Encounter Summary ---
:2002 Author Organization [facility] Address [address] [place] [address] Care Team Providers Name Role Phone Unavailable Primary Care Provider Unavailable Encounter Details Date Type Department Care Team Description 12/26/2004 Hospital Encounter HX [facility] PEDIATRIC Noble Ryan M.D. [address] [place], [place] [address] (Wo rk) Social History Tobacco Use Types Packs/Day Years Used Date Smoking Tobacco: Never Assessed Sex Assigned at Date Recorded Not on file documented as of this encounter Progress Notes Noble Ryan M.D. - 12/26/2004 2:30 PM CDT [id number] SUBJECTIVE: 4 year old male brought by mother with 4 weeks history of nasal congestion, rhinorrhea, and cough. Over the last few days his congestion has worsened and he has developed purulent dischargefrom his eyes. The conjunctivae have not been injected. Temperature afebrile at home. No ear pain, pulling on ears, vomiting or diarrhea. OBJECTIVE: GENERAL: Patient NAD EYES: No injection, bilat yellow discharge EARS: TMs carrillo and translucent bilaterally NOSE: positive findings: mucosa erythematous and swollen THROAT: Clear NECK: Supple without lymphadenopathy CHEST: Lungs clear to auscultation bilaterally HEART: RR without murmur ABD: Soft SKIN: no rashes ASSESSMENT: acute sinusitis PLAN: Antibiotics per orders. Symptomatic cares. f/u prn. Source: [facility] Document Id: [id number] documented in this encounter Plan of Treatment Not on filedocumented as of this encounter Visit Diagnoses Not on filedocumented in this encounter
--- OUTSIDE RECORDS SUMMARY | 2022-05-19 19:44 | XMS_ITS | Encounter Summary ---
:2002 Author Organization [facility] Address [address] [place] [address] Care Team Providers Name Role Phone Unavailable Primary Care Provider Unavailable Encounter Details Date Type Department Care Team Description 08/29/2003 Hospital Encounter [facility] PEDIATRIC Dech, Noble Juárez M.D. [address] [place], [place] [address] (Wo rk) Social History Tobacco Use Types Packs/Day Years Used Date Smoking Tobacco: Never Assessed Sex Assigned at Date Recorded Not on file documented as of this encounter Progress Notes Conversion, Historical Provider Ser - 08/29/2003 11:10 AM CST [id number] This child DOES NOT QUALIFY FOR MnVFC PROGRAMOvidio Houser Dilma is a 10 month old male here for a 9 mo [facility] well child exam.Brought in by mother. HISTORYCurrent Concerns:gastroenteritis symptoms are re solving. recheck ears.Diet:formula: Enfamil with iron:, pureed solids, finger foods and table leticia d.Water Source: city water.Elimination: Normal bowel movements and Normal urination. Sleep: sleeps through the night.Day Care: NoNoteworthy social stressors: noneHistory Modules Reviewed:YesThere is no problem list on file for this patient.Any hearing or vision concerns? noDEVELOPMENTAL SCRE EN: Parent Concerns: NOSOCIALSelf Feeding: YesPlays Pat-a-cake: YesWaves bye-bye: YesFINE MOTORTakes 2 cubes: Yes Pincer grasp: YesGROSS MOTORPulls to st and: YesStands holding on: YesGets to sitting: YesWalks alone: YesLAN GUAGESpeech Sounds: YesMama/Ravinder non-specific:YesMama/Ravinder specific: YesInhibits to No: YesDiagonal Orientation to Flores:YesPeekaboo / Search for Lost Object:YesPHYSICA L EXAM: There were no vitals taken for this visit.Growth charts reviewed.General: Alert, interact priya and appropriate and no distressHead: NORMAL Fontanelles: NORMALE yes: NORMAL EOM (cover/uncover): NORMALEars: NORMALNose: NORMALMouth: NORMALNeck: NORMALResp: NORMALHeart: NORMALAbdomen: NORMALGenitalia: NORMAL male - circumcisedMusculoskeletal: NORMALSkin: NORMALNe urological: NORMALLAB: No results found for this basename: HGB:1:,LEAD:1]EDUCATION/DI SCUSSED: Transition to whole milkBedtime routineIntroduce cupSelf feedingDental care/bottle paulo th/brush teethAcetaminophen doseCar safety.ASSESSMENT/PLAN:Normal growth and development at 10 month oldHandout on age appropriate development/safety given.Labs as ordered. (Hemoglobin if not do ne previously and lead level if risk factors present by screening questions. Immunizations if needed .Return in 3 months at age 12 months. Source: [facility] Document Id: [id number] documented in this encounter Miscellaneous Notes Miscellaneous - Conversion, Historical Provider Ser - 08/29/2003 11:10 AM SUPERVISOR CELL MAINTENANCE [id number] Parent(s) of Ovidio Perera [address] [place] [phone] August 31, 2003 Dear parent(s) of Ovidio, The results of your child's lab(s) were as follows: Hemoglobin: HGB 11.9 08/29/2003 Lead: LEAD 3 08/30/2003 These lab results are normal. If you have any further questions, please call our office at . Sincerely, Pediatric Department [facility] Source: [facility] Document Id: [id number] documented in this encounter Plan of Treatment Not on filedocumented as of this encounter Visit Diagnoses Not on filedocumented in this encounter
--- OUTSIDE RECORDS SUMMARY | 2022-05-19 19:44 | XMS_ITS | Encounter Summary ---
:2002 Author Organization [facility] Address [address] [place] [address] Care Team Providers Name Role Phone Unavailable Primary Care Provider Unavailable Encounter Details Date Type Department Care Team Description 05/20/2004 Hospital Encounter [facility] Joseph Amado M.D. [address] [place], [place] [address] Social History Tobacco Use Types Packs/Day Years Used Date Smoking Tobacco: Never Assessed Sex Assigned at Date Recorded Not on file documented as of this encounter Progress Notes Conversion, Historical Provider Ser - 05/20/2004 2:15 PM CDT [id number] Addended by: SAND OPERATOROBIE on: 05/21/2004,12:14 PM Comment: Fur Cutter.Modules accepted: Progress NotesOvidio is an 52-fnexq-kub male who 8 days ago while going down a slide with his a unt somehow twisted his right leg or ankle and since that time has been unwilling or unable to bear w eight on that right side. X-rays initially taken in Pediatrics were read as normal, but he continues to be uncomfortable when he attempts to stand and walk. He was sent to Orthopedics for evaluation. The patient is afebrile. I find no swelling in the foot, ankle, knee or hip areas and he has full range of motion in all. There's no real pain when he moves his ankle and knee around. I can't palp ate any defects nor any tenderness, and so new x-rays were obtained of the right lower extremity, and again I don't see any evidence of a fracture. There's no new periosteal bone forming anywhere that I can tell and no dislocations. I think he probably just sprained his knee or ankle. I think that at the age of 18 months this should not take too long to recover and I would think by the end of this week he would be beginning to put some weight on it. If he is not, I would like to hear from his mo ther, and if he truly still is unable to bear weight by that time could consider such things as a bon e scan looking for an occult fracture that we just don't see on plain x-ray. Joseph Steel M.D. /mindarD: 05/20/2004T: 05/21/2004 Source: [facility] RWHXTRANSXSYS Document Id: [id number] documented in this encounter Plan of Treatment Not on filedocumented as of this encounter Visit Diagnoses Not on filedocumented in this encounter
--- OUTSIDE RECORDS SUMMARY | 2022-05-19 19:44 | XMS_ITS | Encounter Summary ---
:2002 Author Organization [facility] Address [address] [place] [address] Care Team Providers Name Role Phone Unavailable Primary Care Provider Unavailable Encounter Details Date Type Department Care Team Description [address] [facility] PED[facility]RIC Dech, Noble Juárez M.D. [address] [place], [place] [address] (Wo rk) Social History Tobacco Use Types Packs/Day Years Used Date Smoking Tobacco: Never Assessed Sex Assigned at Date Recorded Not on file documented as of this encounter Progress Notes Conversion, Historical Provider Ser - 2002 9:10 AM CST [id number] NAME: Ovidio PereraAGE: 4 week oldGESTATIONAL/CORRECTED AGE: sameHISTORY:Parent Concerns: none History Modules Reviewed: YesPediatric History Vitals Length: 21.5 (0.546m) Weight: 7 lb s 11 oz (3.487 kg) HC: 34.3cm (13.5) cm One: 9 Five: 9 Ten: Discharge Weight: 7 lb s 4 oz (3.289 kg) : Gestation Age: 40 wks Nourishment Method: Breast FeedPediatrics History Comment Please see scanned INFO SHEETS Diet: breast feedin gSleep: wakes at night for feedings 2-3x/noc and day/night reversal.Elimination: Normal bowel move ments and Normal urination. Daycare: NoWater Source: Mediasurface water.Any hearing or vision concerns? n oDEVELOPMENTAL SCREEN: SOCIALRegards face: YesFINE MOTORFollows to Midline: YesGROSS MOT ORTurns head: YesEqual movements: YesLANGUAGEResponds to sound: YesVocalizes: YesPRIMITIVE REFLEXESNormal: YesPHYSICAL EXAM:Ht 1' 10 (0.559m) Wt 8 lbs 8 oz (3.856 kg) HC 36.3cmGeneral: Alert, interactive and appropriate and no distressHead: ALVARO LEyes: NORMALRed Reflex: NORMALEars: NORMALNose: NORMALMouth: NORMALNec k: NORMALResp: NORMALHeart: NORMALFemoral Arteries: NORMALAbdomen: NORMALU mbilicus: NORMALGenitalia: NORMAL male - circumcisedHips: NORMALExtremities:NORMALSkin: NORMALNeuro: NORMALNB HEARING SCREEN (NURSERY): NORMALSTATE METABOLIC SCREENING: NORM ALEDUCATION DISCUSSED:No solidsCar seat safetyPsychosocialInfant cryingInfant sleep.ASSESS MENT/PLAN: Well baby with normal growth and development. Handout on age appropriate development/saf ety given.Immunizations reviewed and discussed.Return age 2 months. Source: [facility] RWHXTRANSXSYS Document Id: [id number] documented in this encounter Plan of Treatment Not on filedocumented as of this encounter Visit Diagnoses Not on filedocumented in this encounter
--- OUTSIDE RECORDS SUMMARY | 2022-05-19 19:44 | XMS_ITS | Encounter Summary ---
:2002 Author Organization [facility] Address [address] [place] [address] Care Team Providers Name Role Phone Unavailable Primary Care Provider Unavailable Encounter Details Date Type Department Care Team Description 04/02/2005 Hospital Encounter HX NO MAPPING Provider, Historical Social History Tobacco Use Types Packs/Day Years Used Date Smoking Tobacco: Never Assessed Sex Assigned at Date Recorded Not on file documented as of this encounter Plan of Treatment Not on filedocumented as of this encounter Visit Diagnoses Not on filedocumented in this encounter
--- OUTSIDE RECORDS SUMMARY | 2022-05-19 19:44 | XMS_ITS | Encounter Summary ---
:2000 Author Organization [facility] Address [address] [place] [address] Care Team Providers Name Role Phone Unavailable Primary Care Provider Unavailable Encounter Details Date Type Department Care Team Description 08/25/2003 Hospital Encounter HX [facility] Dech, Noble Juárez M.D. [address], [place] [address] (Wo rk) Social History Tobacco Use Types Packs/Day Years Used Date Smoking Tobacco: Never Assessed Sex Assigned at Date Recorded Not on file documented as of this encounter Progress Notes Conversion, Historical Provider Ser - 08/25/2003 10:10 AM CST [id number] SUBJECTIVE: 10 month old male brought by father with 2 days history of fever, vomiting, brown watery diarrhea, and irritability. He recently had URI sx, now improved. Temperature 102 at home. Compla ins of pulling on left ear(s) for 1 days. OBJECTIVE: Patient in NAD EYES: No drainage or injecti on LEFT EAR: TM bulging, erythematous and obscured landmarks RIGHT EAR: TM normal: no effusions, no erythema, and normal landmarksNOSE: Nares normal. Septum midline. Mucosa normal. No drainage or sin us tenderness.THROAT: Clear NECK: Supple without lymphadenopathy CHEST: Lungs clear to auscultatio n bilaterallyHEART: RR without murmur ABD: Hyperactive bowel sounds, soft, NTND, no HSM no masses ASSESSMENT: Left Otitis Media gastroenteritisPLAN: Antibiotics per orders. Will give I M ceftriaxone today due to vomiting, start oral abx tomorrow. Symptomatic cares. f/u prn. [facility] Document Id: [id number] documented in this encounter Plan of Treatment Not on filedocumented as of this encounter Visit Diagnoses Not on filedocumented in this encounter
--- OUTSIDE RECORDS SUMMARY | 2022-05-19 19:44 | XMS_ITS | Encounter Summary ---
:2000 Author Organization [facility] Address [address] [place] [address] Care Team Providers Name Role Phone Unavailable Primary Care Provider Unavailable Encounter Details Date Type Department Care Team Description 09/05/2003 Hospital Encounter [facility] Dech, Noble Juárez M.D. [address] [place], [place] [address] (Wo rk) Social History Tobacco Use Types Packs/Day Years Used Date Smoking Tobacco: Never Assessed Sex Assigned at Date Recorded Not on file documented as of this encounter Progress Notes Conversion, Historical Provider Ser - 09/05/2003 10:30 AM CST [id number] Addended by: MIHAI ANSARI on: 09/08/2003,4:09 PM Comment: TranscriptionModules accepted: Jorge tang CathyEricMayur carmichaelKwakuUBJECTIVE: Ovidio is a 83-ivdel-rew boy who was brought in this orning over concerns about a period of irritability yesterday evening. Early yesterday evening while taking bath he pinched his left middle finger sustaining a small laceration near the base of the lat eral nail fold. About an hour after that, he was irritable, crying almost inconsolable, this lasted for a few hours, and then he was able to get to sleep. He seemed a bit better this morning. He's h ad problems with otitis in the past so Mom is concerned about his ears. She also notes that they rodas d difficulty getting the laceration to stop oozing and finally seems to have stopped this morning. OBJECTIVE:He is well developed, well nourished, alert, in no acute distress.He is calm and occasion ally smiling. He is normocephalic and atraumatic.He has normal red reflex bilaterally.Conjunctivae are not injected.TMs are shiny and carrillo with normal landmarks. The left is very slightly retracted . There is no rhinorrhea.Mucous membranes are moist. Neck is supple.Lungs are clear.He has jose l S1 and S2 with RRR, no murmurs.He has normal bowel sounds.Abdomen is soft, nontender, nondistende d, without hepatosplenomegaly or masses. There are no skin rashes.Extremity exam shows a roughly 3 mm-superficial laceration at the left third fingertip at the base of the nail fold. There is current ly no active bleeding.IMPRESSION: 1. Transient irritability of uncertain etiology.2. Superfici al finger tip laceration.PLAN: 1. Will follow up conservatively at this point. This exam was unr emarkable. I reassure Mom about the ears. Basic wound care principles were discussed. Follow up AL N. Noble Ryan M.D./Jos: 09/05/2003T: 09/08/2003 Source: [facility] RWHXTRANSXSYS Document Id: [id number] documented in this encounter Plan of Treatment Not on filedocumented as of this encounter Visit Diagnoses Not on filedocumented in this encounter
--- OUTSIDE RECORDS SUMMARY | 2022-05-19 19:44 | XMS_ITS | Encounter Summary ---
:2000 Author Organization [facility] Address [address] [place] [address] Care Team Providers Name Role Phone Unavailable Primary Care Provider Unavailable Encounter Details Date Type Department Care Team Description 11/26/2004 Hospital Encounter HX [facility] Noble Ryan M.D. [address], [place] [address] (Wo rk) Social History Tobacco Use Types Packs/Day Years Used Date Smoking Tobacco: Never Assessed Sex Assigned at Date Recorded Not on file documented as of this encounter Progress Notes Noble Ryan M.D. - 11/26/2004 9:30 AM CDT [id number] This child DOES NOT QUALIFY FOR [facility] PROGRAM Ovidio Corrina Perera is a 4 year old male here for 4 yearwell child exam. Brought in by mother. HISTORY Current Concerns: none Diet: appropriate diet. Water Source: [facility] water. Elimination: Normal bowel movements and Normal urination. Sleep: sleeps through the night Daycare: No Noteworthy social stressors: none History Modules Reviewed: Yes There is no problem list on file for this patient. Any hearing or vision concerns? no DEVELOPMENTAL SCREEN: Parent Concerns about Development: NO SOCIAL Plays ball: Yes Remove garment: Yes FINE MOTOR Scribbles: Yes 4-6 block tower:Yes GROSS MOTOR Runs well: Yes Kicks a ball: Yes Stairs alone: Yes LANGUAGE 10 - 25 words: Yes 2 word phrases: Yes PHYSICAL EXAM: Ht 3' .5 (0.93m) Wt 27 lbs 4.0 oz (12.4kg) HC 50.0cm Growth charts reviewed. General: Alert, interactive and appropriate Head: NORMAL Eyes: NORMAL EOM (cover/uncover): NORMAL Ears: NORMAL Nose: NORMAL Mouth: NORMAL Neck: NORMAL Resp: NORMAL Heart: NORMAL Abdomen: NORMAL Genitalia: NORMAL male - circumcised Musculoskeletal: NORMAL Gait: NORMAL Skin: NORMAL Neurological: NORMAL EDUCATION/DISCUSSED: 3 meals with snacks/varied diet Toilet training Outside/street safety Smoke alarm batteries Daily exercise Discipline: positive reinforcement & physical punishment Reading Talking Dental care Risk Assessment Reviewed and Discussed:Yes,Nutrition and Safety ASSESSMENT/PLAN: Normal growth and development at 4 year old. Handout on age appropriate development/safety given. Reviewed immunizations. Return in 1 year (age 5 years). Source: [facility] RWMCHXTRANSXRTFSYS Document Id: [id number] Electronically signed by Conversion, [facility] Financial Consultant [id number] at 01/19/2017 11:22 PM CDT documented in this encounter Plan of Treatment Not on filedocumented as of this encounter Visit Diagnoses Not on filedocumented in this encounter
--- OUTSIDE RECORDS SUMMARY | 2022-05-19 19:44 | XMS_ITS | Encounter Summary ---
:2000 Author Organization [facility] Address [address] [place] [address] Care Team Providers Name Role Phone Unavailable Primary Care Provider Unavailable Encounter Details Date Type Department Care Team Description 01/01/2004 Hospital Encounter [facility] Dech, Noble Juárez M.D. [address], [place] [address] (Wo rk) Social History Tobacco Use Types Packs/Day Years Used Date Smoking Tobacco: Never Assessed Sex Assigned at Date Recorded Not on file documented as of this encounter Progress Notes Conversion, Historical Provider Ser - 01/01/2004 3:10 PM CDT [id number] Addended by: PROFESSOR OF EARLY CHILDHOOD EDUCATIONOBIE on: 01/02/2004,12:51 PM Comment: Cullet Trucker.Modules accepted: Progress NotesSUBJECTIVE:Ovidio is a 15-irpjm-ith boy brought in by his mother with concerns a bout his right arm. Mom worked yesterday and Ovidio was under the care of her fiance'. When she a rrived home, he told her that Ovidio had not been using his right arm. He apparently did not witne ss any trauma. Mom is unsure whether he had picked him up by his arms or any such thing would have b een a mechanism for nurse 's. OBJECTIVE: He is well developed, well nourished, alert, in no ac felice distress. The right shoulder has full range of movement. The elbow has full range of motion, a lthough he was somewhat resistive of supination of the forearm. There was no bony tenderness or step -off. There is a question of some soft tissue swelling over the distal forearm. The wrist has full range of motion. There is no snuff box tenderness. The fingers have full range of motion. The hand is warm with capillary refill less than 2 seconds. Radial pulses 2 over 2. An x-ray of the forea rm is unremarkable. There was perhaps a click with combined flexion and supination of the forearm w ith pressure on the radial head. IMPRESSION:Right arm pain of uncertain etiology, possible nurse m aid's elbow. PLAN:Will have mom observe for normalization of use of the extremity. If continued c oncerns, I would have him return for re-evaluation and possible orthopedic evaluation. Ramonita Ryan M.D./mindarD: 01/01/2004T: 01/02/2004 Source: [facility] RWHXTRANSXSYS Document Id: [id number] documented in this encounter Plan of Treatment Not on filedocumented as of this encounter Visit Diagnoses Not on filedocumented in this encounter
--- OUTSIDE RECORDS SUMMARY | 2022-05-19 19:44 | XMS_ITS | Encounter Summary ---
:2000 Author Organization [facility] Address [address] [place] [address] Care Team Providers Name Role Phone Unavailable Primary Care Provider Unavailable Encounter Details Date Type Department Care Team Description 02/29/2004 Hospital Encounter [facility] Dech, Noble Juárez M.D. [address], [place] [address] (Wo rk) Social History Tobacco Use Types Packs/Day Years Used Date Smoking Tobacco: Never Assessed Sex Assigned at Date Recorded Not on file documented as of this encounter Progress Notes Conversion, Historical Provider Ser - 02/29/2004 10:30 AM CDT [id number] Addended by: JULIOCESAR PITTMAN on: 03/07/2004,9:26 AM Comment: TranscriptionModules accepted: Jamie ChawlaUBJECTIVE: David is a 37-sjxex-hws boy who was well until yeste rday early afternoon when Mom was pulling him up by his arms and immediately, thereafter, he began to favor his left arm. He wouldn't fully flex the elbow. He's had nurse 's elbow in the past so M om thinks that it may have happened again. She brought [place] into Clinic in [place] when asked wh at they did in [place] Mom replied, I'm not sure what they did. Mom has not noticed any ivey e in him favoring the arm yesterday evening and over night. He continues to favor it this morning. OBJECTIVE: He well developed, well nourished, alert, in no acute distress. He is holding the left arm in about 30 degrees of flexion and not using it to manipulate objects like he is doing with his r ight. The hand is warm. Capillary refills less than 2 seconds, radio pulses are 2/2, and there is n o bony tenderness to palpation in the hand, wrist, elbow, or forearm. Flexion and pronation with pre ssure on the radio head was uncomfortable for him and produced an audible or palpable pop. However, he was using the arm a little bit more within 10 or 15 minutes of this maneuver. IMPRESSION: 1. P arlyn nurse 's elbow.PLAN: I would have Mom closely observe him over the course of the day today. Sometimes if nurse 's elbows have been out for several hours it takes awhile for children to become comfortable using the arm. If he is still favoring the arm by tomorrow morning, I asked M om to call me and would likely try to arrange orthopedic evaluation at that time. John Ryan M.D. /Jos: 02/29/2004T: 03/07/2004 Source: [facility] RWHXTRANSXSYS Document Id: [id number] documented in this encounter Plan of Treatment Not on filedocumented as of this encounter Visit Diagnoses Not on filedocumented in this encounter
--- OUTSIDE RECORDS SUMMARY | 2022-05-19 19:44 | XMS_ITS | Encounter Summary ---
:2000 Author Organization [facility] Address [address] [place] [address] Care Team Providers Name Role Phone Unavailable Primary Care Provider Unavailable Encounter Details Date Type Department Care Team Description 05/06/2004 Hospital Encounter [facility] Provider, [place] cathie Social History Tobacco Use Types Packs/Day Years Used Date Smoking Tobacco: Never Assessed Sex Assigned at Date Recorded Not on file documented as of this encounter Miscellaneous Notes Miscellaneous - Conversion, Historical Provider Ser - 05/06/2004 12:00 AM CDT [id number] Parent(s) of Ovidio Perera [address] [place] [phone] 05/06/2004 Dear Parent(s) of Ovidio, Our records indicate that your child is due for a well child visit. Please call our office to schedule an appointment at your convenience at . [facility] Document Id: [id number] documented in this encounter Plan of Treatment Not on filedocumented as of this encounter Visit Diagnoses Not on filedocumented in this encounter
--- OUTSIDE RECORDS SUMMARY | 2022-05-19 19:44 | XMS_ITS | Encounter Summary ---
:2000 Author Organization [facility] Address [address] [place] [address] Care Team Providers Name Role Phone Unavailable Primary Care Provider Unavailable Encounter Details Date Type Department Care Team Description 05/13/2004 Hospital Encounter HX NO MAPPING Noble Ryan M.D. [address], [place] [address] (Wo rk) Social History Tobacco Use Types Packs/Day Years Used Date Smoking Tobacco: Never Assessed Sex Assigned at Date Recorded Not on file documented as of this encounter Progress Notes Conversion, Historical Provider Ser - 05/13/2004 5:15 PM CDT [id number] SUBJECTIVE:Ovidio is a 89-ywmls-syq boy who was well until yesterday afternoon he was going down a curly slide with his aunt when he is right foot got caught between the slide and his aunt's leg. Sin ce that time it has seemed uncomfortable and he has been refusing to bear weight.OBJECTIVE:General : He is well-developed, well-nourished, alert, and in no acute distress.Musculoskeletal: He has some very mild soft tissue swelling of the lateral aspect of the right ankle. There is no erythema or ecc hymosis. The ankle has full passive range of motion. Inversion of the ankle seems uncomfortable but there is no laxity. Dorsalis pedis pulse is normal. Capillary refill is less than 2 seconds.LABORAT ORY/X-RAY RESULTS:X-ray of the ankle is unremarkable. IMPRESSION:Right ankle contusion.PLAN:Sy mptomatic cares, rest, ibuprofen as needed, and frequent ice packs. Follow up if symptoms worsen or p ersist.Noble Ryan M.D./jamD: 05/13/2004T: 05/14/2004 Source: [facility] RWHXTRANSXSYS Document Id: [id number] documented in this encounter Plan of Treatment Not on filedocumented as of this encounter Visit Diagnoses Not on filedocumented in this encounter
--- OUTSIDE RECORDS SUMMARY | 2022-05-19 19:44 | XMS_ITS | Encounter Summary ---
:2000 Author Organization [facility] Address [address] [place] [address] Care Team Providers Name Role Phone Unavailable Primary Care Provider Unavailable Encounter Details Date Type Department Care Team Description 01/16/2004 Hospital Encounter HX [facility] Provider, [place] cathie Social History Tobacco Use Types Packs/Day Years Used Date Smoking Tobacco: Never Assessed Sex Assigned at Date Recorded Not on file documented as of this encounter Miscellaneous Notes Miscellaneous - Conversion, Historical Provider Ser - 01/16/2004 12:00 AM CDT [id number] Parent(s) of Ovidio Perera [id number] [place] [phone] 01/16/2004 Dear Parent(s) of Ovidio, Our records indicate that your child is due for a well child visit. Please call our office to schedule an appointment at your convenience at . Source[facility] Document Id: [id number] documented in this encounter Plan of Treatment Not on filedocumented as of this encounter Visit Diagnoses Not on filedocumented in this encounter
--- OUTSIDE RECORDS SUMMARY | 2022-05-19 19:44 | XMS_ITS | Encounter Summary ---
:2000 Author Organization [facility] Address [address] [place] [address] Care Team Providers Name Role Phone Unavailable Primary Care Provider Unavailable Encounter Details Date Type Department Care Team Description 08/12/2003 Hospital Encounter HX NO MAPPING Catrachita Collins M.D. [address] [place] [phone] (Wo rk) Social History Tobacco Use Types Packs/Day Years Used Date Smoking Tobacco: Never Assessed Sex Assigned at Date Recorded Not on file documented as of this encounter Plan of Treatment Not on filedocumented as of this encounter Visit Diagnoses Not on filedocumented in this encounter
--- OUTSIDE RECORDS SUMMARY | 2022-05-19 19:44 | XMS_ITS | Encounter Summary ---
:2000 Author Organization [facility] Address [address] [place] [address] Care Team Providers Name Role Phone Unavailable Primary Care Provider Unavailable Encounter Details Date Type Department Care Team Description 12/13/2003 Hospital Encounter [facility] Provider, [employer] Social History Tobacco Use Types Packs/Day Years Used Date Smoking Tobacco: Never Assessed Sex Assigned at Date Recorded Not on file documented as of this encounter Plan of Treatment Not on filedocumented as of this encounter Visit Diagnoses Not on filedocumented in this encounter
--- OUTSIDE RECORDS SUMMARY | 2022-05-19 19:46 | XMS_ITS | Encounter Summary ---
:2000 Author Organization [facility] Address [address] [place] [address] Care Team Providers Name Role Phone Unavailable Primary Care Provider Unavailable Encounter Details Date Type Department Care Team Description 01/23/2014 Hospital Encounter [facility]X [facility] Kavon Lu M.D. Social History Tobacco Use Types Packs/Day Years Used Date Smoking Tobacco: Never Assessed Sex Assigned at Date Recorded Not on file documented as of this encounter Last Filed Vital Signs Vital Sign Reading Time Taken Comments Blood Pressure - - Pulse - - Temperature - - Respiratory Rate - - Oxygen Saturation - - Inhaled Oxygen Concentration - - Weight 34.1 kg (75 lb 2.8 oz) 01/23/2014 10:15 AM CDT Height 147 cm (4' 9.87) 01/23/2014 10:15 AM CDT Body Mass Index 15.78 01/23/2014 10:15 AM CDT Body Mass Index Percentile 20.45 % 01/23/2014 10:15 AM C DT Growth Chart: [facility] (Boys, 2-20 Years) documented in this encounter H&P Notes Kavon Lu M.D. - 01/23/2014 9:55 AM CDT [id number] Ovidio is an 13-year-old who is here for a camp physical. He is going to be going to [employer] camp, I believe, in [place]. This is occurring the end of February. He is in 5th grade. He has no concerns. We had him fill out the sports physical form and the only yes answer is cardiac disease in his family, his maternal grandfather had aortic valve surgery done in his 50s. Also Ovidio fractured his right wrist in 2005 but that has healed up and he has no further problems from it. Otherwise, the review of systems is negative. The completed sports physical form will be scanned into his EMR, and he is cleared for going [facility]. He is going to receive the DPAP and meningitis vaccines today. Kavon Lu M.D./jose Electronically Signed By: KAVON LU MD On: 01/23/2014 05:37 PM Source: [facility] MHSDOLBEYNONRADSYS Document Id: [id number] documented in this encounter Procedure Notes Cruz De L.P.N. - 01/23/2014 10:19 AM CDT Vision Testing Vision Testing Entered On: 01/23/2014 10:20 CDT Performed On: 01/23/2014 10:19 CDT by CRUZ DE LPN Vision Testing Corrective Lenses : None Color Vision : Pass Eye, Right w/o Correction : 20/15 Eye, Left w/o Correction : 20/15 CRUZ DE LPN - 01/23/2014 10:19 CDT Source: [facility] POWERCHART Document Id: [id number] CDT!6 documented in this encounter Miscellaneous Notes Miscellaneous - Cruz De L.P.N. - 01/23/2014 10:15 AM CDT Pediatric Pastoral Assistant Intake/History Pediatric Pastoral Assistant Intake/History Entered On: 01/23/2014 10:19 CDT Performed On: 01/23/2014 10:15 CDT by CRUZ DE LPN Intake Chief Complaint : [place] Physical Temperature Core : 37.2 DegC(Converted to: 99.0 DegF) Peripheral Pulse Rate : 74 /min Respiratory Rate : 20 /min Systolic Blood Pressure : 96 mmHg Diastolic Blood Pressure : 54 mmHg NIBP Mean : 68 mmHg BP Location : Right upper extremity Blood Pressure Cuff Size : Pediatric SpO2 : 99 % Oxygen Therapy : Room air Height : 147 cm(Converted to: 4 ft 10 inch(es), 58 inch(es)) Actual Weight : 34.1 kg(Converted to: 75 lb 3 oz) Weight Source : Standing scale Dosing Weight Clinic : 34.1 kg Clinic BSA : 1.18 Body Mass Index : 15.78 kg/m2 CRUZ DE [facility] - 01/23/2014 10:15 CDT General Info Accompanied By : Mother Information Given By : Patient, Mother Languages : Uzbek CRUZ DE [facility] - 01/23/2014 10:15 CDT Subjective Pain Symptoms : No CRUZ DE [facility] - 01/23/2014 10:15 CDT Dependent Habits Tobacco Use/Currently Using : No Exposure to Tobacco Smoke : Care provider denies smoking in home Smoking Status : Never smoker Alcohol Use : No CRUZ DE [facility] - 01/23/2014 10:15 CDT Caffeine Use Grid Caffeine Use : None CRUZ DE [facility] - 01/23/2014 10:15 CDT Recreational Drug Use Grid Drug Use : None CRUZ DE [facility] - 01/23/2014 10:15 CDT [facility] [employer] Document Id: [id number] CDT!36 documented in this encounter Plan of Treatment Not on filedocumented as of this encounter Visit Diagnoses Not on filedocumented in this encounter
[2022-05-19 21:05] VITALS: BP 126/85; PULSE 60; RESP 16; TEMP 36.9
== END 2022-05-19 21:07 | disposition home or self-care (01) ==
PROVIDERS: Emergency Provider Emergency Medicine Emergency Medical Services
DX: S00.33XA Contusion of nose, initial encounter (principal); S60.212A Contusion of left wrist, initial encounter; S30.0XXA Contusion of lower back and pelvis, initial encounter; S20.213A Contusion of bilateral front wall of thorax, initial encounter; V86.55XA Driver of 3- or 4- wheeled all-terrain vehicle (ATV) injured in nontraffic accident, initial encounter; V89.9XXA Person injured in unspecified vehicle accident, initial encounter; Y92.410 Unspecified street and highway as the place of occurrence of the external cause; Y93.I9 Activity, other involving external motion; Y99.8 Other external cause status
CPT/HCPCS: 72100; 73110; 99283; 99285